=== PATIENT | female | born 1975 | race Caucasian/White ===

== ENCOUNTER 2023-07-15 09:38 | Outpatient (REF) | payer MEDICAID, SELFPAY ==
--- NOTE | ~2023-07-15 | XR_ITS ---
EXAMINATION: 1. RADIOGRAPHS LEFT HIP 2. RADIOGRAPHS LEFT KNEE CLINICAL INFORMATION: Pain COMPARISON: None available TECHNIQUE: 2 views of the left hip and 4 views of the left knee were obtained FINDINGS: Left hip: Visualized portion of proximal left femur demonstrate no fracture. Left femoral head is well-seated within the acetabulum. Left femoral acetabular joint space is well-maintained. Pelvic calcifications are likely vascular in nature. Left knee: There is mild narrowing of the medial and lateral joint space heights. No significant degenerative changes. No fracture. Tiny suprapatellar joint effusion. No localized soft tissue swelling of the anterior knee. XR/XR hip LT min 2V IMPRESSION: 1. Unremarkable radiographs of the left hip. 2. Mild degenerative changes of the left knee with a tiny suprapatellar joint effusion.
--- NOTE | ~2023-07-15 | XR_ITS ---
EXAMINATION: 1. RADIOGRAPHS LEFT HIP 2. RADIOGRAPHS LEFT KNEE CLINICAL INFORMATION: Pain COMPARISON: None available TECHNIQUE: 2 views of the left hip and 4 views of the left knee were obtained FINDINGS: Left hip: Visualized portion of proximal left femur demonstrate no fracture. Left femoral head is well-seated within the acetabulum. Left femoral acetabular joint space is well-maintained. Pelvic calcifications are likely vascular in nature. Left knee: There is mild narrowing of the medial and lateral joint space heights. No significant degenerative changes. No fracture. Tiny suprapatellar joint effusion. No localized soft tissue swelling of the anterior knee. XR/XR knee LT 4V IMPRESSION: 1. Unremarkable radiographs of the left hip. 2. Mild degenerative changes of the left knee with a tiny suprapatellar joint effusion.
== END 2023-07-15 09:39 | disposition home or self-care (01) ==
LOC: HO.XRAY 09:38
PROVIDERS: PCP Internal Medicine; Visit Provider Internal Medicine
DX: M25.562 Pain in left knee (principal); M25.552 Pain in left hip
CPT/HCPCS: 73502; 73564

== ENCOUNTER 2024-04-20 10:14 | Outpatient (REF) | payer MEDICAID, SELFPAY ==
[2024-04-20 11:53] LABS: Estimated Average Glucose 143 mg/dL; Hemoglobin A1C 177.3657 umol/L; Hemoglobin A1c % 6.6 % (<6.0); Total Hemoglobin (HGBA1C) 3678.2526 umol/L
[2024-04-20 12:12] LABS: Calcium 9.3 mg/dL (8.4-10.2)
[2024-04-20 12:28] LABS: TSH reflex Free T4 1.68 uIU/mL (0.32-4.0)
[2024-04-21 18:48] LABS: Transglutaminase IgA <1.0 U/mL
[2024-04-21 19:19] LABS: Immunoglobulin A 169 mg/dL (47-310)
== END 2024-04-20 10:15 | disposition home or self-care (01) ==
LOC: HO.LAB 10:14
PROVIDERS: PCP Internal Medicine; Visit Provider Internal Medicine
DX: K31.84 Gastroparesis (principal); K59.00 Constipation, unspecified
CPT/HCPCS: 36415; 82310; 82784; 83036; 83735; 84443; 86364; 99202

== ENCOUNTER 2024-04-20 10:14 | Outpatient (AMB) | payer MEDICAID, SELFPAY ==
--- NOTE | 2024-04-20 10:18 | MHC.OFFVIS ---
Vital Signs 04/20/24 10:21 Height 5 ft 2 in Weight 171 lb 15.369 oz BMI 31.4 BP 136/86 Blood Pressure Location Lt brachial Position Sitting Respiration 87 H Intake Visit Reasons: Epigastric pain Intake Note: Sylvia presents in the office as a new patient for epigastric pains CC: She states that she is having issues with her stomach. Constipation but denies diarrhea. No blood when she has a BM. Machine [employer] Required: Yes Machine Feathered[employer] Reducer Name: Cousin Allergies acetaminophen [From Percocet] Allergy (Mild, Verified 04/20/24 10:22) Unknown latex Allergy (Mild, Verified 04/20/24 10:22) Unknown oxycodone [From Percocet] Allergy (Mild, Verified 04/20/24 10:22) Unknown HPI Comments Details: 48 y.o F with PMH of GERD s/p LINX who is coming in for management of gastroparesis. Seen with [facility]. Pt seeking second opinion at [facility] [place] - prev seen by [facility]. Prev w/up [facility]: Barium swallow: no reflux despite provocation. linx position good. egd 12/2023: food in stomach GES 12/2023: 80% retention at 4h. Today: reports main concern is abd pain and bloating after meals. Has reflux sensation. Also reports constipation - goes every 3-4 days. Has DM for which she is on metformin. No recent travel or major illness in the past year. Clonidine noted on med list but has been taking this >1 year. PFSH Surgical History (Updated 04/20/24 @ 10:24 by CARL Morse) Hx of colonoscopy Family History (Updated 04/20/24 @ 10:22 by CARL Morse) Maternal Grandmother No problems noted. Family/Other Prostate cancer Review of Systems Const All systems reviewed & are unremarkable except as noted in HPI and below Physical Exam Vital Signs: Last Vital Signs Resp 87 H 04/20/24 10:21 BP 136/86 04/20/24 10:21 BMI result Body Mass Index 31.4 No apparent distress Nonicteric Abdomen soft, nondistended Alert and oriented x3, normal gait Assessment & Plan Assessment & Plan (1) Constipation: Code(s): K59.00 - Constipation, unspecified Category: Medical (2) Gastroparesis: Code(s): K31.84 - Gastroparesis Category: Medical Plan GI sx driven by hypomotilty - has delayed gastric emptying as well as severe constipation. Etiology of gastroparesis not determined yet. Ddx incudes vagal injury from linx vs diabetic vs idiopathic. Plan: - Start motegrity 1mg PO daily - Small particle diet - Avoid fatty food and fiber - Stay upright for 60 mins post meals - Check labs as below Follow up 2 months Orders: Orders Transglutaminase IgA Today K31.84 - Gastroparesis Immunoglobulin A Today K31.84 - Gastroparesis Magnesium Today K31.84 - Gastroparesis Hemoglobin A1c Today K31.84 - Gastroparesis Calcium Today K31.84 - Gastroparesis TSH reflex Free T4 Today K59.00 - Constipation, unspecified Medications: New prucalopride (Motegrity) 1 mg PO DAILY 90 days 90 tabs 1RF Coding Level of Care Code New Pt Level 4 (44351) Complex EM visit Add On G2211 Diagnoses Constipation K59.00 Gastroparesis K31.84
[2024-04-20 10:21] VITALS: BP 136/86; RESP 87; BMI 31.4
--- OUTSIDE RECORDS SUMMARY | 2024-04-20 10:30 | XMS_ITS | Data Portability ---
Author Organization [facility], [facility] Address [address] [place] [address] Care Team Providers Care Business Job Titles Name Role Phone SHANITA MCMANUSMA Primary Care Provider [phone] Assessment Encounter Date Assessment Date Assessment LastModified by Organization Details LastModified Time 03/29/2024 03/29/2024 Chief Complaint: Left knee bucket-handle lateral meniscus tear, knee chondromalacia HPI: Patient is a 48-year-old female presenting with left knee pain and mechanical symptoms. The condition started approximately 3 weeks ago when she experienced sudden pain while attempting to stand from a seated position. Due to swelling, she sought emergency room evaluation at that time. Since the initial incident, she reports continued symptoms including knee locking. Patient has a significant cardiac history with previous heart surgery. She denies any previous knee surgeries or major trauma. I independently reviewed the outside MRI of the left knee dated 03/20/2024 from [facility]. There is a complex bucket-handle tear of the lateral meniscus with displacement of the meniscus into the intracondylar notch. Moderate chondromalacia to the mid weightbearing portion of the lateral femoral condyle and lateral tibial plateau. ACL and PCL intact. Medial meniscus appears intact. Chondral thinning in the medial compartment also noted. Collateral ligaments intact. Mild patellar chondromalacia. She has a past medical history of hypertension, cardiac disease status post open heart surgery, history of stroke and diabetes. Medications are listed in the medical record. She has a sensitivity to narcotics. She denies tobacco use. No personal or family history of blood clots. Past medical, surgical, family and social history; Medications, Allergies and 12-point review of systems have been reviewed, updated and charted. Physical Examination: Height and weight as listed in chart. Constitutional: Patient pleasant, well appearing and in NAD. Mental status: Patient is alert and oriented to person, place and time. No short-term memory deficits. Psychiatric: Mood and affect are appropriate. Head: Normocephalic and atraumatic. Exterior inspection of the ears and nose was unremarkable. Hearing grossly intact. Eyes: Sclera are not blue. instructor decorating II-XII are grossly intact. Full extraocular motion. Neck: Supple with age-appropriate ROM. No tracheal deviation. No obvious JVD. Respiratory: Non-labored breathing. Symmetric excursion. No audible wheezing or crackles. Skin: No rashes, lesions, wounds to the lower extremities. Normal turgor and coloration. Musculoskeletal: On examination of the left knee, there is a mild to moderate effusion with no erythema or ecchymosis. Range of motion from +10-120??. She has a block to full extension. Her knee is stable to varus and valgus stress as well as Yung and posterior drawer. She exhibits tenderness to palpation along the lateral joint line, pain with deep knee flexion and pain with Parish's maneuver. Extensor mechanism intact. Procedure: Injection of Steroid and Anesthetic, Knee Joint All reasonable risks and benefits of injection were discussed. Risks include bleeding, infection, non-relief of symptoms, recurrence of symptoms, allergic reaction, scarring, fat atrophy, and hyperglycemia. After obtaining verbal consent, the Left lateral knee was prepped in sterile fashion using an alcohol swab. The skin was anesthetized with ethyl chloride spray, wiped again with alcohol, and an intraarticular injection of 1cc of Kenalog 40 and 4cc? s of Lidocaine 1% was performed using a 22-gauge needle into the superior lateral aspect of the suprapatellar pouch of the knee. The medication flowed freely into the joint and the patient tolerated this procedure well. The patient was instructed to avoid strenuous activity following the injection for approximately 24 to 48 hours, ice the area as needed and then a gradual return to normal activities is allowed. Impression and Plan: 48-year-old female with left knee pain, swelling, mechanical symptoms and block to full extension in the setting of a left knee bucket-handle lateral meniscus tear. I discussed etiology of the patient's symptoms with her at length today. At this point, she has failed conservative treatment including rest, activity modification, use of an assistive device and anti-inflammatorie s. Given her mechanical symptoms and block to full extension, I did recommend moving forward with left knee diagnostic and operative arthroscopy with partial lateral meniscectomy and chondroplasty/debr idement. She does have evidence of early arthritic change to her lateral compartment and unfortunately, her lateral meniscus tear represents a large component of her overall meniscal volume. She does stand the risk of developing progressive osteoarthritis because of her injury. Based on her relatively minimal mechanism of injury, there is likely been some degree of tearing for years and the meniscus finally bucketed. Although there is a possibility that the meniscus could be repairable, I discussed that this is unlikely based on her history alone. Moreover, we discussed that meniscus repair is a very different recovery requiring 6 weeks of nonweightbearing. She wishes to move forward with surgery. Anticipated recovery after knee arthroscopy with partial meniscectomy surgery is approximately 6 weeks. I will allow the patient to weight-bear as tolerated. I recommend the patient begin physical therapy within 2 days of surgery to prevent knee stiffness. The patient does wish to proceed. Preoperative history and physical to be completed by PCP/holter scanning technician. All questions and concerns addressed. 1. A detailed discussion regarding the patient? s pathoanatomy and treatment options, both operative and non-operative, was conducted today. 2. Given that conservative measures have failed, I recommended left knee diagnostic and operative arthroscopy with partial lateral meniscectomy and chondroplasty/debr idement. 2. The mechanics of the major surgery were reviewed with explanation, diagram, and review of imaging. 3. I told the patient that the goal of surgery was to improve their overall function and symptoms, but that surgery may not relieve all symptoms. I advised the patient that symptom resolution after this procedure may be protracted and incomplete.?? I explained that, as a result, permanent functional limitations may be recommended. 4. An appropriate timeline of recovery was outlined, and appropriate expectations were reviewed. 5. The risks and benefits of surgery, and the nonoperative alternatives, were discussed at length. Risks include, but are not limited to infection, bleeding, damage to nerves, blood vessels, muscle, tendon, bone; need for further surgery, wound healing problems, hardware related problems, non-relief of symptoms, recurrence of pathology, reinjury, chronic pain, chronic numbness, chronic weakness, loss of function, compartment syndrome, fracture, complex regional pain syndrome, joint stiffness, adhesions/scarring , arthritis or progression of arthritis, complications of anesthesia, and blood clots. 6. The patient has been educated in clear, simple language and on their own level of understanding the risks and benefits of all viable treatment options, including those of no treatment. All questions have been answered to their satisfaction. The patient has made an informed decision to proceed with surgery. 7. The patient was offered a second opinion regarding diagnosis and management of their condition and they respectfully declined. To alleviate symptoms and buy her time until surgery, I did not perform any cortisone injection today that she tolerated very well. The patient is deemed high risk for surgery perioperatively and postoperatively given the following factors: Cardiac disease status post open heart surgery Today's visit involved examining the patient, reviewing the history, reviewing the radiographic studies, counseling the patient regarding treatment options, and the administrative tasks including placing orders, preparing patient information and home handouts and preparing the visit note. This note was generated with [facility] ([place], [place])[employer] [facility] speech recognition network program manager dictation software. Please excuse any errors that may have been overlooked during review of this note. Sometimes, these errors may affect the content or meaning of a given sentence. Please call for corrections. [email or web address] Not available 03/29/2024 09:51:22 Plan of Treatment Reminders Order Date Submit Date Provider Last Modified By Organization Details Last Modified Time Details Appointments SURGERY @ [facility] 2024 07:30A M Bruce Morley MD Not available Not available Not available PT INITIAL EVAL 2024 09:30A M Alonso de la cruz, DPT Not available Not available Not available PT FOLLOW-U P 2024 01:00P Laly Henderson DIRECTOR ORGANIZATIONAL Not available Not available Not available PT FOLLOW-U P 2024 09:00A M Daisy Henderson DIRECTOR ORGANIZATIONAL Not available Not available Not available PT FOLLOW-U P 2024 07:30A Laly Henderson DIRECTOR ORGANIZATIONAL Not available Not available Not available PT FOLLOW-U P 2024 08:30A M Daisy Henderson DIRECTOR ORGANIZATIONAL Not available Not available Not available POST OP 15 2024 01:30P Laly Francis i, PA-C Not available Not available Not available PT FOLLOW-U P 2024 08:30A M Daisy Henderson, DIRECTOR ORGANIZATIONAL Not available Not available Not available PT FOLLOW-U P 2024 09:00A M Daisy Henderson, DIRECTOR ORGANIZATIONAL Not available Not available Not available PT FOLLOW-U P 2024 08:30A M Daisy Henderson, DIRECTOR ORGANIZATIONAL Not available Not available Not available PT FOLLOW-U P 2024 08:30A M Daisy Henderson, DIRECTOR ORGANIZATIONAL Not available Not available Not available PT FOLLOW-U P 2024 08:30A M Alonso Mendoza s, DPT Not available Not available Not available PT FOLLOW-U P 2024 08:30A M Daisy Henderson, DIRECTOR ORGANIZATIONAL Not available Not available Not available PT FOLLOW-U P 2024 08:30A M Daisy Henderson, DIRECTOR ORGANIZATIONAL Not available Not available Not available PT FOLLOW-U P 2024 08:30A M Alonso Linki s, DPT Not available Not available Not available PT FOLLOW-U P 2024 08:30A M Alonso Linki s, DPT Not available Not available Not available PT FOLLOW-U P 2024 08:30A M Alonso Alanisoraki s, DPT Not available Not available Not available PT FOLLOW-U P 2024 08:30A M Alonso Alanisoraki s, DPT Not available Not available Not available Lab None recorded . Referral None recorded . Procedures None recorded . Surgeries None recorded . Imaging MRI, knee, w/o contrast - left knee MRI ?LMT, lateral femoral condoyle fx / pain and weakness 2023 024 chandra [facility] ([facility]), [address] [place], [address], 03/24/2024 13:42:20 Medication Orders meloxica m 15 mg tablet 2023 024 sandra 1 [id number], [address] [place], [address], 03/08/2024 15:32:10 Patient TargetsNo targets recorded. Patient InstructionsNo instructions recorded. Reason for Referral None Reported. Results Created Date Observation Date Name Description Value Unit Range Abnormal Flag Note LastModifiedBy Organization Detail LastModifiedTime 12/11/19 24 10/27/2019 imagi ng/di agnos tic resul t No observ ation record ed. [email or web address] Not Available 11/13 06:52:02 12/11/19 24 10/27/2019 imagi ng/di agnos tic resul t No observ ation record ed. [email or web address] Not Available 11/13 06:52:03 03/21/20 24 03/20/2024 MRI, knee, w/o contr ast [facility] Access ion Number : [id number] Patien t Name: Toby Miller na Medica brandin Record Number : [id number] Date of : 1975 Date of Exam: 2023 Referr ing Physic flora: Daisy Cedeno [address] [facility], [place] [address] Exam: MR Knee (C-) CPT 70593 - Left Room Descri ption: Cook Siem Espr 1.5 MR Knee (C-) CPT 18977 CLINIC AL INDICA TION: Pain and decrea sed range of motion for the past 2 weeks. TECHNI QUE: MRI of the left knee was perfor med withou t intrav enous contra st. COMPAR RABIA: MRI 020 FINDIN GS: Joint effusi on: Modera te volume joint effusi on. Hoffa' s fat pad is unrema rkable . Diffus e edema of the subcut aneous fat. Menisc i: Bucket -handl e tear of the latera l menisc us with anteri or displa cement of the menisc al fragme nt lies adjace nt to the anteri or horn. Medial menisc us is intact . Tendon s and ligame nts: The ACL and PCL are intact . The collat eral ligame nts are unrema rkable . The ilioti bial band is unrema rkable . The extens or mechan ism is intact . Articu lar cartil age: Modera te medial and latera l tibiof emoral chondr al thinni ng. Patell ofemor al articu lar cartil age is well mainta ined. Bone: Alignm ent and bone marrow signal are within normal limits . No eviden ce of fractu re or bone marrow contus ion. IMPRES JUN: Bucket -handl e tear of the latera l menisc us with anteri or displa cement of the word processor technician ior horn. Modera te volume joint effusi on. I, Derik Saucedo rd, MD, have review ed the images and report and concur with the reside nt, Socrates Beards, teofilo gs. Electr onical ly Signed By: Derik Saucedo rd, MD [email or web address] [facility] ([facility]) [address], [place], [address], 03/22/2024 09:08:28 Result Notes None recorded. Problems Name Problem SNOMED Code Status Onset Date Resolution Date Notes Provider Name and Address Organization Details Recorded Time No complaint s 954444970 Active Status: 'I'; Not Available [facility] 4 09:23:50 Pain of right knee joint 204310355924 100 Active 2023 Daisy Coronado PA-C [address], [place], [address] , [facility] 4 12:50:19 Carpal tunnel syndrome of right wrist 677822487882 108 Active 2019 Problem Code: G56.01; Problem Code Type: ICD-10; Status: 'A'; Not Available [facility] 4 11:59:07 Lateral epicondyl itis of left humerus 741425866905 100 Active 2019 Problem Code: M77.12; Problem Code Type: ICD-10; Status: 'A'; Not Available [facility] 4 11:59:07 Bilateral osteoarth ritis of knees 192011550808 107 Active 2023 jasmina painting [place] - [facility] 4 15:13:33 Problem Notes None recorded. Procedures Surgical History Date Name Laterality Status Provider Name and Address Organization Details Recorded Time 4 Sports Knee 4&1 completed Bruce Morley MD [address], [place], [address], [facility] 03/29/2024 09:51:30 4 Euflexxa Knee Injection completed Andrey Guevara PA-C [address], [place], [address], [facility] 12/10/2023 12:39:22 4 Euflexxa Knee Injection completed Gita Valdez PA-C [address], [place], [address], [facility] 12/09/2023 12:49:38 4 Euflexxa Knee Injection completed Andrey Guevara PA-C [address] [facility] [place], [place], [address], [facility] 12/02/2023 11:00:45 4 Knee Kenalog 40 2cc Injection, Bilateral completed Andrey Guevara PA-C [address] [facility] [place], [place], [address], [facility] 07/09/2023 09:11:20 Imaging Results Imaging Date Name Status LastModified by Organiz ation Details LastModified Time 10/27/2019 imaging/diagn ostic result completed Information not available 12/11/2023 06:52:02 10/27/2019 imaging/diagn ostic result completed Information not available 12/11/2023 06:52:03 03/20/2024 MRI, knee, w/o contrast completed [facility] ([facility]) [address], [place], [address], 03/22/2024 09:08:28 Procedure Notes None recorded. Medical Equipment None Reported. Allergies Allergen ID Allergen Name Allergen Category Reaction Reaction Severity Criticality Documentation Date Start Date Code Code System Note Provider Name and Address Organization Details Recorded Time 296956 acetamino phen / oxycodone medicatio n hallucina tions Not available Not available 06/15/20232017 96746 3 RxNorm Not Available [facility] 4 16:24:31 054846 latex environme nt,medica tion Not available Not available Not available 06/15/20232018 02286 91 RxNorm Not Available [facility] 16:24:31 Medications Name Sig Start Date Stop Date Status Note LastModified by Organization Details LastModified Time atorvastati n 40 mg tablet TOME 1 TABLETA POR V A ORAL TODOS LOS D active Not Available Not Available No t Available terconazole 0.4 % vaginal cream 1 APPLICATO R VAGINALLY AT BEDTIME FOR 7DAYS active Not Available Not Available No t Available atorvastati n 80 mg tablet TOME 1 TABLETA POR V A ORAL TODOS LOS D active Not Available Not Available No t Available clonidine HCl 0.1 mg tablet TOME DILCIA TABLETA TODOS LOS D EN LA NOCHE active Not Available Not Available No t Available doxycycline hyclate 100 mg capsule TOME DILCIA C PSULA DOS VECES AL D A 12/08 completed Not Available Not Available Not Available atorvastati n 20 mg tablet TOME DILCIA TABLETA TODOS LOS D 12/08 completed Not Available Not Available Not Available trazodone 50 mg tablet TOME DILCIA O DOS TABLETAS POR V A ORAL AL ACOSTARSE CUANDO SEA NECESARIO active Not Available Not Available No t Available prazosin 1 mg capsule TOME SARAY C PSULAS POR V A ORAL TODOS LOS D AL ACOSTARSE active Not Available Not Available No t Available meloxicam 15 mg tablet Take 1 tablet every day by oral route after meal(s). 2023 active Not Available Not Available Not Adelaide Esparza Lancidalmis 28 gauge CHECK SUGARS DOS VECES AL D A active Not Available Not Available No t Available metoprolol succinate ER 100 mg tablet,exte nded release 24 hr TAKE 1 AND 1/2 TABLETS POR V A ORAL A DIARIO active Not Available Not Available No t Available sertraline 100 mg tablet TOME 1 TABLETA POR V A ORAL TODOS LOS D active Not Available Not Available No t Available metronidazo le 500 mg tablet TAKE ONE TABLET BY MOUTH TWICE A DAY FOR SEVEN DAYS. DO NOT DRINK ALCOHOL WHILE TAKING THIS MED active Not Available Not Available No t Available famotidine 20 mg tablet TAKE 1 TABLET BY MOUTH 2 TIMES DAILY NEEDED FOR HEARTBURN . active Not Available Not Available No t Available metoclopram viky 5 mg tablet TAKE 1 TABLET BY MOUTH 3 TIMES A DAY, 30 MINUTES BEFORE FOOD active Not Available Not Available No t Available estradiol 1 mg tablet TOME 1 TABLETA POR V A ORAL TODOS LOS D EN LA MA CATRINA active Not Available Not Available No t Available cephalexin 500 mg capsule TOME DILCIA C PSULA SARAY VECES AL D A 12/08 completed Not Available Not Available Not Available sertraline 25 mg tablet TOME DILCIA TABLETA POR V A ORAL TODOS LOS D (WITH 150MG) active Not Available Not Available No t Available omeprazole 20 mg capsule,del ayed release TOME 1 C PSULA POR V A ORAL TODOS LOS D 12/08 completed Not Available Not Available Not Available estradiol 0.01% (0.1 mg/gram) vaginal cream INSERT 1 GM VAGINALLY DAILY AT BEDTIME FOR 14 DAYS active Not Available Not Available No t Available losartan 100 mg tablet TOME 1 TABLETA POR V A ORAL TODOS LOS D active Not Available Not Available No t Available metformin ER 500 mg tablet,exte nded release 24 hr TOME DILCIA TABLETA POR V A ORAL DOS VECES AL D A active Not Available Not Available No t Available sertraline 50 mg tablet TOME SARAY TABLETAS POR V A ORAL TODOS LOS D WITH 25 MG active Not Available Not Available No t Available dicyclomine 10 mg capsule TAKE 1 CAPSULE BY MOUTH 3 TIMES DAILY NEEDED (DIARRHEA ) FOR UP TO 90 DAYS. 12/08 completed Not Available Not Available Not Available loratadine 10 mg tablet TOME 1 TABLETA POR V A ORAL TODOS LOS D active Not Available Not Available No t Available prazosin 2 mg capsule TOME DILCIA C PSULA TODOS LOS D AL ACOSTARSE active Not Available Not Available No t Available naproxen 500 mg tablet TOME 1 TABLETA POR V A ORAL DOS VECES AL D A active Not Available Not Available No t Available Ventolin HFA 90 mcg/actuati on aerosol inhaler INHALE DANDO DOS SOPLIDOS CUATRO VECES AL D A active Not Available Not Available No t Available hydrocortis one 1 % topical cream with perineal applicator APLIQUE AL GERTRUDE AFECTADA DOS VECES AL D A. FOR INTERNAL RECTAL USE 12/08 completed Not Available Not Available Not Available Flovent HFA 110 mcg/actuati on aerosol inhaler INHALE DANDO DOS SOPLIDOS DOS HARLEY AL D A active Not Available Not Available No t Available FreeStyle Lite Strips USE SEG N LO INDICADO DOS HARLEY AL D A active Not Available Not Available No t Available Gavilax 17 gram/dose oral powder TAKE 17 GRAMS POR V A ORAL ONCE DAILY 12/08 completed Not Available Not Available Not Available Vitals Date Recorded Body height Body mass index (BMI) Body weight Provider Name and Address Organization Details Last Updated DateTime 12/03/2023 157.48 cm 31.1 kg/m2 08619.7 g Nitish Hollingsworth [facility] 12/03/2023 13:09:10 Date Recorded Body height Body mass index (BMI) Body weight Provider Name and Address Organization Details Last Updated DateTime 12/09/2023 157.48 cm 31.1 kg/m2 19473.7 g jasmina talamantes [facility] 12/09/2023 12:10:54 Date Recorded Body height Body mass index (BMI) Body weight Provider Name and Address Organization Details Last Updated DateTime 12/16/2023 157.48 cm 31.1 kg/m2 98664.7 g Nitish Hollingsworth [facility] 12/16/2023 12:57:41 Date Recorded Body height Body mass index (BMI) Body weight Provider Name and Address Organization Details Last Updated DateTime 03/08/2024 157.48 cm 31.1 kg/m2 69026.7 g Maura Mcallister [facility] 03/08/2024 14:44:31 Date Recorded Body height Body mass index (BMI) Body weight Provider Name and Address Organization Details Last Updated DateTime 03/29/2024 157.48 cm 31.1 kg/m2 74852.7 g NITIN NEVES [facility] 03/29/2024 08:59:11 Social History None recorded. Functional Status None recorded. Mental Status None recorded. Family History Nothing Reported. Medical History Condition Response Diabetes Y Anxiety/Depression Y Arthritis Y Acid Reflux (GERD) Y Stroke Y Heart Trouble Y Headaches Y Hypertension Y Cholesterol Y Gynecological HistoryNo gynecological history recorded. Obstetrics History GPAL:G 0 P 0 0 0 0 Past Encounters Encounter ID Performer Location Encounter Start Date Encounter Closed Date Diagnosis/Indication Diagnosis SNOMED-CT Code Diagnosis ICD10 Code Diagnosis Note [id number] Andrey Guevara PA-C [facility] [address] [place] [address] 07/09/2023 08:48:11 07/09/2023 10:57:11 Bilateral osteoarthritis of knees 4799681268 89858 M17.0 [id number] [facility] [address] [place] [address] 08/14/2023 15:29:40 08/14/2023 16:21:32 Bilateral osteoarthritis of knees 3044821819 10876 M17.0 [id number] [facility] [address] [place] [address] 12/03/2023 13:02:15 12/03/2023 13:18:26 Osteoarthritis of left knee joint 3047279742 25617 M17.12 [id number] ECTOR [facility] [address] [place] [address] 12/09/2023 12:00:30 01/01/2024 08:52:35 Osteoarthritis of left knee joint 9950550905 02135 M17.12 [id number] Andrey Guevara PA-C [facility] [address] [place] [address] 12/16/2023 12:32:43 12/16/2023 15:14:48 Osteoarthritis of left knee joint 3056107741 30762 M17.12 [id number] Daisy Coronado PA-C [place] [address] [place] [address] 03/08/2024 13:46:19 03/24/2024 13:42:20 Pain of right knee joint 1580103560 57281 M25.561 Tear of la teral meniscus of knee 447602141 S83.282A [id number] Bruce Morley MD [facility] [address] [place] [address] 03/29/2024 08:41:59 04/19/2024 14:57:06 Tear of lateral meniscus of knee 771182647 S83.272A Health Concerns Section Related Observation LastModified by Organization Detai ls LastModified Time None Recorded Concern Status LastModified by Organization Details LastModified Time None Recorded Advance Directives Directive None Recorded Payers Encounter Date Sequence Insurance Name Policy Number Policy Carr Covered Member ID Carr Member ID Guarantor Name 12/03/2023 1 [place] [facility]via Paul [id number] Sylvia Paul 12/09/2023 1 [place] Sylvia Paul [id number] Sylvia Paul 12/16/2023 1 [place] [facility] Syl[facility] Paul [id number] Sylvia Paul 03/08/2024 1 [place] [facility] Syl[facility] Paul [id number] Sylvia Paul 03/29/2024 1 [place] [facility] Sylvia Paul [id number] Sylvia Paul Notes Date Note Type Note Provider Name and Address Organization Details Recorded Time text/html I am seeing the patient today under the supervision of Dr. Whittaker who was available but who did not see the patient. HPI: Patient presenting today with known osteoarthritis of the left knee. Not happy with pain level and function of the knees. Is authorized for Euflexxa injection {{#1 #2* #3}} today. No new injury. Past family, medical, social history and review of systems has been reviewed, updated, and is located in the patient? s chart. Examination: Examination of the left knee reveals no effusion, erythema, or warmth. Injection site benign. Decreased range of motion. Point tender {{medial* lateral}} joint line. Calf is soft and nontender. 5/5 strength knee flexion and extension. Impression: Left knee osteoarthritis Plan: Nature of the diagnosis discussed with the patient today. Patient agreed to proceed with an injection. Utilizing sterile technique, the left knee was injected with Euflexxa 1 unit. Patient tolerated the procedure well. Postinjection precautions reviewed. Recommended ice and rest for the next 24-48 hours. Follow-up as scheduled. [employer] speech recognition network program manager software was used to create portions of this document. An attempt at proofreading has been made to minimize errors. Please call for corrections. Gita Valdez PA-C [address], [place], [address], [facility] 12/09/2023 12:49:55 4 text/html I am seeing the patient today under the supervision of {{Peyman Borjas palak Lopez* Brothers}} who was available but who did not see the patient. CLINICAL UPDATE: 48-year-old Libyan-speaking only female patient presents today for right knee pain. She reports 03-04-2024 she got up from a seated position and felt a crack at the lateral aspect of her knee. Since then, she has had pain with weightbearing. She is using a walker. She has tried naproxen, Tylenol, ice. Localizes pain to the lateral aspect of the knee. She was evaluated at the [facility] emergency department where a CT scan 03/06/24 demonstrated possible impaction fracture at the lateral femoral condyle, moderate joint effusion. HPI: Patient previously seen by one of my colleagues for bilateral knee pain. Completed left knee Euflexxa series 12/16/23. Last bilateral knee cortisone injections 07/09/23. Past family, social history and review of systems has been reviewed, updated and is located in the patient? s chart. X-RAYS: Previous 4v X-rays of the {{Right Left Bilateral*}} knees from June 2022 reviewed today at [facility] demonstrates mild lateral compartment osteoarthritis, left greater than right knee IMPRESSION: {{Right* Left Bilateral}} knee lateral femoral condyle impaction fracture, effusion PLAN: Findings reviewed. She has tried viscosupplementation and cortisone injection with mild relief previously. Given her recent injury, relatively mild arthritis in the knee, recommended MRI to further guide treatment options. Recommended protected weightbearing for the next 6-8 weeks, continuing to use her walker. Demonstrated gentle range of motion exercises to prevent stiffness. Meloxicam 15 mg to be taken daily with food was sent to her pharmacy. Instructed to avoid other NSAIDs while taking this medication. Follow-up for MRI review and ongoing treatment discussion. All of her concerns are addressed and she understands and agrees with the plan. Speech recognition network program manager software was used to create portions of this document. An attempt at proofreading has been made to minimize errors. Please call for corrections. Daisy Coronado PA-C [address], [place], [address], [facility] 03/09/2024 17:00:04 OBGyn Episode No OBEpisode recorded.
--- OUTSIDE RECORDS SUMMARY | 2024-04-20 10:30 | XMS_ITS | Continuity of Care Document ---
Author Organization On license of [facility], [address] Address [address] [place] [address] Care Team Providers Care Convict Guard Name Role Phone UMBERTO MCMANUS Primary Care Provider Assessment Encounter Date Assessment Date Assessment LastModified [...] of the left knee dated 03/20/2024 from [facility]. There is a complex bucket-handle tear [...] grossly intact. Eyes: Sclera are not blue. radiotelephone operator II-XII are grossly intact. Full extraocular motion. [...] history and physical to be completed by PCP/associate director. All questions and concerns addressed. 1. A [...] visit note. This note was generated with [facility] speech recognition radiological health specialist dictation software. Please excuse any errors that may have been overlooked during review of this note. Sometimes, these errors may affect the content or meaning of a given sentence. Please call for corrections. [email or web address] Not available 03/29/2024 09:51:22 Plan of Treatment Reminders Order Date Submit Date Provider Last Modified By Organization Details Last Modified Time Details Appointments SURGERY @ [facility] 2024 07:30A M Bruce Morley MD Not available Not available Not available PT INITIAL EVAL 2024 09:30A M Alonso de la cruz, DPT Not available Not available Not available PT FOLLOW-U P 2024 01:00P Laly Henderson COURT REGISTRY OFFICER Not available Not available Not available PT FOLLOW-U P 2024 09:00A M Daisy Henderson COURT REGISTRY OFFICER Not available Not available Not available PT FOLLOW-U P 2024 07:30A Laly Henderson COURT REGISTRY OFFICER Not available Not available Not available PT FOLLOW-U P 2024 08:30A M Daisy Henderson COURT REGISTRY OFFICER Not available Not available Not available POST OP 15 2024 01:30P Laly Francis i, PA-C Not available Not available Not available PT FOLLOW-U P 2024 08:30A M Daisy Henderson, COURT REGISTRY OFFICER Not available Not available Not available PT FOLLOW-U P 2024 09:00A M Daisy Henderson, COURT REGISTRY OFFICER Not available Not available Not available PT FOLLOW-U P 2024 08:30A M Daisy Henderson, COURT REGISTRY OFFICER Not available Not available Not available PT FOLLOW-U P 2024 08:30A M Daisy Henderson, COURT REGISTRY OFFICER Not available Not available Not available PT FOLLOW-U P 2024 08:30A M Alonso Mendoza s, DPT Not available Not available Not available PT FOLLOW-U P 2024 08:30A M Daisy Henderson, COURT REGISTRY OFFICER Not available Not available Not available PT FOLLOW-U P 2024 08:30A M Daisy Henderson, COURT REGISTRY OFFICER Not available Not available Not available PT FOLLOW-U P 2024 08:30A M Alonso Linki s, DPT Not available Not available Not available PT FOLLOW-U P 2024 08:30A M Alonso Mendoza s, DPT Not available Not available Not available PT FOLLOW-U P 2024 08:30A M Alonso Menodza s, DPT Not available Not available Not available PT FOLLOW-U P 2024 08:30A M Alonso Mendoza s, DPT Not available Not available Not available Lab None recorded . Referral None recorded . Procedures None recorded . Surgeries None recorded . Imaging None recorded . Medication Orders None recorded . Patient TargetsNo targets recorded. Patient InstructionsNo instructions recorded. Reason for Referral None Reported. Results Created Date Observation Date Name Description Value Unit Range Abnormal Flag Note LastModifiedBy Organization Detail LastModifiedTime 03/21/20 24 03/20/2024 MRI, knee, w/o contr ast [facility] Access ion Number : [id number] Katrinjoe siena Name: Toby Millera brandin Record Number : [id number] Date of : 1975 Date of Exam: 2023 Referr ing Physic flora: Kendy colbert Daisy ROSETTA [address] [facility] [address] Exam: MR Knee (C-) CPT 65206 - Left Room Descri ption: [facility] Espr 1.5 MR Knee (C-) CPT 34308 CLINIC AL INDICA TION: Pain and decrea sed range of motion for the past 2 weeks. TECHNI QUE: MRI of the left knee was perfor med withou t intrav enous contra st. COMPAR RABIA: MRI 020 HARRISONIN GS: Joint effusi on: Modera te volume [...] with anteri or displa cement of the environmental test technician ior horn. Modera te volume joint effusi on. I, Derik Saucedo rd, MD, have review ed the images and report and concur with the Socrates castro findin gs. Electr onical ly Signed By: Derik Saucedo rd, MD [email or web address] [facility] [address], [place], [address], 03/22/2024 09:08:28 Result Notes None recorded. Problems Name Problem SNOMED Code Status Onset Date Resolution Date Notes Provider Name and Address Organization Details Recorded Time No complaint s 746176122 Active Status: 'I'; Not Available [employer] 09:23:50 Pain of right knee joint 890753462830 100 Active 2023 Daisy Coronado PA-C [address], [place], [address] , [facility] 4 12:50:19 Carpal tunnel syndrome of right wrist 301345635587 108 Active 2019 Problem Code: G56.01; Problem Code Type: ICD-10; Status: 'A'; Not Available [facility] 4 11:59:07 Lateral epicondyl itis of left humerus 833051748270 100 Active 2019 Problem Code: M77.12; Problem Code Type: ICD-10; Status: 'A'; Not Available [facility] 4 11:59:07 Bilateral osteoarth ritis of knees 053666271633 107 Active 2023 jasmina painting [facility] 4 15:13:33 Problem Notes None recorded. Procedures Surgical History Date Name Laterality Status Provider Name and Address Organization Details Recorded Time 4 Sports Knee 4&1 completed Bruce Morley MD [address], [place], [address], [facility] 03/29/2024 09:51:30 4 Euflexxa Knee Injection completed Andrey Guevraa PA-C [address], [place], [address], [facility] 12/10/2023 12:39:22 4 Euflexxa Knee Injection completed Gita Valdez PA-C [address], [place], [address], [facility] 12/09/2023 12:49:38 4 Euflexxa Knee Injection completed Andrey Guevara PA-C [address], [place], [address], [facility] 12/02/2023 11:00:45 4 Knee Kenalog 40 2cc Injection, Bilateral completed Andrey Guevara PA-C [address], [place], [address], [facility] 07/09/2023 09:11:20 Imaging Results None recorded. Procedure Notes None recorded. Medical Equipment None Reported. Allergies Allergen ID Allergen Name Allergen Category Reaction Reaction Severity Criticality Documentation Date Start Date Code Code System Note Provider Name and Address Organization Details Recorded Time 874750 acetamino phen / oxycodone medicatio n hallucina tions Not available Not available 06/15/20232017 78901 3 RxNorm Not Available [facility] 16:24:31 401942 latex environme nt,medica tion Not available Not available Not available 06/15/20232018 86076 91 RxNorm Not Available [facility] 16:24:31 Medications Name Sig Start Date Stop [...] 2023 active Not Available Not Available Not Avai lable FreeStyle Lancets 28 gauge CHECK SUGARS DOS VECES AL [...] aerosol inhaler INHALE DANDO DOS SOPLIDOS DOS VECES AL D A active Not Available Not Available No t Available FreeStyle Lite Strips USE SEG N LO INDICADO DOS VECES AL D A active Not Available Not Available No t Available Gavilax 17 gram/dose oral powder TAKE 17 GRAMS POR V A ORAL ONCE DAILY 12/08 completed Not Available Not Available Not Available Vitals Date Recorded Body height Body mass index (BMI) Body weight Provider Name and Address Organization Details Last Updated DateTime 03/29/2024 157.48 cm 31.1 kg/m2 30461.7 g NITIN NEVES [place] [facility] [place] 03/29/2024 08:59:11 Social History None recorded. Functional Status None recorded. Mental Status None recorded. Family History Nothing Reported. Medical History Condition Response Diabetes Y Anxiety/Depression Y Arthritis Y Heart Trouble Y Acid Reflux (GERD) Y Headaches Y Stroke Y Hypertension Y Cholesterol Y Gynecological HistoryNo gynecological history recorded. Obstetrics History GPAL:G 0 P 0 0 0 0 Past Encounters Encounter ID Performer Location Encounter Start Date Encounter Closed Date Diagnosis/Indication Diagnosis SNOMED-CT Code Diagnosis ICD10 Code Diagnosis Note [id number] Daisy Coronado PA-C [place] [address] [place] [address] 03/08/2024 13:46:19 03/24/2024 13:42:20 Pain of right knee joint 3749071275 44344 M25.561 Tear of la teral meniscus of knee 963490746 S83.282A [id number] MD [facility] 2[address] [place] , [place] [address] 03/29/2024 08:41:59 04/19/2024 14:57:06 Tear of lateral meniscus of knee 054572528 S83.272A Health Concerns Section Related Observation LastModified by Organization Detai ls LastModified Time None Recorded Concern Status LastModified by Organization Details LastModified Time None Recorded Payers Encounter Date Sequence Insurance Name Policy Number Policy Carr Covered Member ID Carr Member ID Guarantor Name 03/29/2024 1 [place] [facility] Sylvia Miller [id number] Sylvia Miller OBGyn Episode No OBEpisode recorded.
--- OUTSIDE RECORDS SUMMARY | 2024-04-20 10:31 | XMS_ITS | Continuity of Care Document ---
Author Organization [facility] [place] Address [address] [place] [address] Care Team Providers Care Warranty Administrator Name Role Phone UMBERTO MCMANUS Primary Care Provider [phone] Assessment No assessment recorded. Plan of Treatment Reminders Order Date Submit Date Provider Last Modified By Organization Details Last Modified Time Details Appointments SURGERY @ [facility] 2024 07:30A M Bruce Morley MD Not available Not available Not available PT INITIAL EVAL 2024 09:30A M Alonso de la cruz, DPT Not available Not available Not available PT FOLLOW-U P 2024 01:00P M Daisy Henderson, SEASONAL DELIVERY DRIVER Not available Not available Not available PT FOLLOW-U P 2024 09:00A M Daisy Henderson, SEASONAL DELIVERY DRIVER Not available Not available Not available PT FOLLOW-U P 2024 07:30A M Daisy Henderson, SEASONAL DELIVERY DRIVER Not available Not available Not available PT FOLLOW-U P 2024 08:30A M Daisy Henderson, SEASONAL DELIVERY DRIVER Not available Not available Not available POST OP 15 2024 01:30P M Daisy Francis i, PA-C Not available Not available Not available PT FOLLOW-U P 2024 08:30A Laly Henderson, SEASONAL DELIVERY DRIVER Not available Not available Not available PT FOLLOW-U P 2024 09:00A M Daisy Henderson, SEASONAL DELIVERY DRIVER Not available Not available Not available PT FOLLOW-U P 2024 08:30A Laly Henderson, SEASONAL DELIVERY DRIVER Not available Not available Not available PT FOLLOW-U P 2024 08:30A Laly Henderson, SEASONAL DELIVERY DRIVER Not available Not available Not available PT FOLLOW-U P 2024 08:30A M Alonso de la cruz, DPT Not available Not available Not available PT FOLLOW-U P 2024 08:30A M Daisy Henderson, SEASONAL DELIVERY DRIVER Not available Not available Not available PT FOLLOW-U P 2024 08:30A M Daisy Henderson, SEASONAL DELIVERY DRIVER Not available Not available Not available PT FOLLOW-U P 2024 08:30A M Alonso de la cruz, DPT Not available Not available Not available PT FOLLOW-U P 2024 08:30A M Alonso de la cruz, DPT Not available Not available Not available PT FOLLOW-U P 2024 08:30A M Alonso de la cruz, DPT Not available Not available Not available PT FOLLOW-U P 2024 08:30A M Alonso de la cruz, DPT Not available Not available Not available Lab None recorded . Referral None recorded . Procedures None recorded . Surgeries None recorded . Imaging MRI, knee, w/o contrast - left knee MRI ?LMT, lateral femoral condoyle fx / pain and weakness 2023 024 [facility] ([facility]), [address] [place] [address], [address], 03/24/2024 13:42:20 Medication Orders meloxica m 15 mg tablet 2023 024 [email or web address] [id number], [address] [place], [address], 03/08/2024 15:32:10 Patient TargetsNo targets recorded. Patient InstructionsNo instructions recorded. Reason for Referral None Reported. Results Created Date Observation Date Name Description Value Unit Range Abnormal Flag Note LastModifiedBy Organization Detail LastModifiedTime 03/21/20 24 03/20/2024 MRI, knee, w/o contr ast [facility] Access ion Number : [id number] Anamaria wren Name: Toby Miller Medica l Record Number : [id number] Date of : 1975 Date of Exam: 2023 Referr ing Physic flora: Kendy colbert, Daisy SARGENT [address] [facility] [id number] Exam: MR Knee (C-) CPT 49069 - Left Room Descri ption: [facility] Espr 1.5 MR Knee (C-) CPT 29516 CLINIC AL INDICA TION: Pain and decrea [...] with anteri or displa cement of the microbiology lab manager ior horn. Modera te volume joint effusi on. I, Derik Saucedo rd, MD, have review ed the images and report and concur with the reside Socrates gunn, teofilo gs. Electr onical ly Signed By: Derik Saucedo rd, MD [email or web address] [facility] ([place] [facility]) [address], [place], [address], 03/22/2024 09:08:28 Result Notes None recorded. Problems Name Problem SNOMED Code Status Onset Date Resolution Date Notes Provider Name and Address Organization Details Recorded Time No complaint s 984860347 Active Status: 'I'; Not Available [facility] 4 09:23:50 Pain of right knee joint 928400797410 100 Active 2023 Daisy Coronado PA-C [address], [place], [address] , [facility] 4 12:50:19 Carpal tunnel syndrome of right wrist 409550859279 108 Active 2019 Problem Code: G56.01; Problem Code Type: ICD-10; Status: 'A'; Not Available [facility] 4 11:59:07 Lateral epicondyl itis of left humerus 786978826867 100 Active 2019 Problem Code: M77.12; Problem Code Type: ICD-10; Status: 'A'; Not Available [facility] 4 11:59:07 Bilateral osteoarth ritis of knees 668339566708 107 Active 2023 jasmina talamantes [facility] 4 15:13:33 Problem Notes None recorded. Procedures Surgical History Date Name Laterality Status Provider Name and Address Organization Details Recorded Time 4 Sports Knee 4&1 completed Bruce Morley MD [address] [facility], [place], [address], [facility] 03/29/2024 09:51:30 4 Euflexxa Knee Injection completed Andrey Guevara PA-C [address], [place], [address], [facility] 12/10/2023 12:39:22 4 Euflexxa Knee Injection completed Gita Valdez PA-C [address], [place], [address], [facility] 12/09/2023 12:49:38 4 Euflexxa Knee Injection completed Andrey Guevara PA-C [address], [place], [address], [facility] 12/02/2023 11:00:45 4 Knee Kenalog 40 2cc Injection, Bilateral completed Andrey Guevara PA-C [address], [place], [address], [facility] [place] [facility] 07/09/2023 09:11:20 Imaging Results None recorded. Procedure Notes None recorded. Medical Equipment None Reported. Allergies Allergen ID Allergen Name Allergen Category Reaction Reaction Severity Criticality Documentation Date Start Date Code Code System Note Provider Name and Address Organization Details Recorded Time 151063 acetamino phen / oxycodone medicatio n hallucina tions Not available Not available 06/15/20232017 87756 3 RxNorm Not Available [facility] 4 16:24:31 567701 latex environme nt,medica tion Not available Not available Not available 06/15/20232018 65132 91 RxNorm Not Available [facility] [...] active Not Available Not Available Not Adelaide hirsch FreeStyle Lancets 28 gauge CHECK SUGARS DOS [...] Updated DateTime 03/08/2024 157.48 cm 31.1 kg/m2 21449.7 g Maura Mcallister [place] - [place] [facility] 03/08/2024 14:44:31 Social History None recorded. Functional Status None [...] SNOMED-CT Code Diagnosis ICD10 Code Diagnosis Note [id number] Daisy Coronado PA-C [place] [address] [place] [address] 03/08/2024 13:46:19 03/24/2024 13:42:20 Pain of right knee joint 4874906020 44695 M25.561 Tear of la teral meniscus of knee 978646727 S83.282A Health Concerns Section Related Observation LastModified by Organization Detai ls LastModified Time None Recorded Concern Status LastModified by Organization Details LastModified Time None Recorded Payers Encounter Date Sequence Insurance Name Policy Number Policy Carr Covered Member ID Carr Member ID Guarantor Name 03/08/2024 1 [place] [facility] Sylvia Miller [id number] Sylvia Miller Notes Date Note Type Note Provider Name and Address Organization Details Recorded Time 4 text/html I am seeing the patient today under the supervision of {{Peyman Lopez* Brothers}} who was available but who did not see the patient. CLINICAL UPDATE: 48-year-old Romanian-speaking only female patient presents today for right knee pain. She reports 03-04-2024 she got up from a seated position and felt a crack at the lateral aspect of her knee. Since then, she has had pain with weightbearing. She is using a walker. She has tried naproxen, Tylenol, ice. Localizes pain to the lateral aspect of the knee. She was evaluated at the [facility] emergency department where a CT scan [...] knees from June 2022 reviewed today at [facility] demonstrates mild lateral compartment osteoarthritis, left greater [...] and agrees with the plan. Speech recognition delta system freight car cleaner software was used to create portions of this document. An attempt at proofreading has been made to minimize errors. Please call for corrections. Daisy Coronado PA-C [address] [facility] [address], [place], [address], [facility] [place] [facility] 03/09/2024 17:00:04 OBGyn Episode No OBEpisode recorded.
== END 2024-04-20 10:59 | disposition home or self-care (01) ==
PROVIDERS: PCP Internal Medicine; Visit Provider Internal Medicine
DX: K59.00 Constipation, unspecified (principal); K31.84 Gastroparesis
CPT/HCPCS: 99204

== ENCOUNTER 2024-06-24 12:07 | Outpatient (AMB) | payer MEDICAID, SELFPAY ==
--- NOTE | 2024-06-24 12:14 | MHC.OFFVIS ---
Vital Signs 06/24/24 12:15 Height 5 ft 2 in Weight 176 lb 5.917 oz BMI 32.3 BP 128/72 Blood Pressure Location Lt brachial Position Sitting Pulse 94 Intake Visit Reasons: Gastroparesis Intake Note: Sylvia presents in the office as a follow up for Gastroparesis. CC: states that she had surgery on her knee 3 weeks ago. She is having pains in the stomach, she cannot digest her food, stomach is getting big and she is having lots of burping. General Farmworker Required: Yes General Farmworker Name: [id number] Ismael Allergies acetaminophen [From Percocet] Allergy (Mild, Verified 06/24/24 12:20) Unknown latex Allergy (Mild, Verified 06/24/24 12:20) Unknown oxycodone [From Percocet] Allergy (Mild, Verified 06/24/24 12:20) Unknown HPI Comments Details: 48 y.o F with PMH of GERD s/p LINX who is coming in for management of gastroparesis. Seen with device engineer. Pt seeking second opinion at [facility] - prev seen by [facility]. Prev w/up [facility]: Barium swallow: no reflux despite provocation. linx position good. egd 12/2023: food in stomach GES 12/2023: 80% retention at 4h. Today: reports main concern is abd pain and bloating after meals. Has reflux sensation. Also reports constipation - goes every 3-4 days. Has DM for which she is on metformin. No recent travel or major illness in the past year. Clonidine noted on med list but has been taking this >1 year. 06/24/24: Here for follow up. Reports limited effect with prucalopride so far. Up to 2 mg once daily dose. Pt also worried about her weight gain as she is sticking to gastroparesis small particle diet with limited fiber and fat and not able to adhere to a diet plan. Looking to discuss GLP 1 with her PCP but also requests a referral. PFSH Surgical History (Updated 06/24/24 @ 12:21 by CARL Morse) Hx of knee surgery Hx of colonoscopy Family History Maternal Grandmother No problems noted. Family/Other Prostate cancer Review of Systems Const All systems reviewed & are unremarkable except as noted in HPI and below Physical Exam Vital Signs: Last Vital Signs Pulse 94 06/24/24 12:15 BP 128/72 06/24/24 12:15 BMI result Body Mass Index 32.3 No apparent distress Nonicteric Abdomen soft, nondistended Alert and oriented x3, uses cane to ambulate Assessment & Plan Assessment & Plan (1) Constipation: Code(s): K59.00 - Constipation, unspecified Category: Medical (2) Gastroparesis: Code(s): K31.84 - Gastroparesis Category: Medical (3) Obesity: Code(s): E66.9 - Obesity, unspecified Category: Medical Plan 1. GI sx driven by hypomotilty - has delayed gastric emptying as well as severe constipation. Etiology of gastroparesis not determined yet. Ddx incudes vagal injury from linx vs diabetic vs idiopathic. Will trial 4 mg prucalopride. Pt requests BID dosing. Plan: - Increase motegrity 4 mg/day - Small particle diet - Avoid fatty food and fiber - Stay upright for 60 mins post meals 2. Obesity/DM: Pt not able to try weight loss diets such as paleo keto etc due to underlying gastroparesis. Plan: - Metabolic clinic referral placed Follow up 4-6 weeks Orders: Referrals Metabolic Clinic Referral E11.9 - Type 2 diabetes mellitus without complications, E66.9 - Obesity, unspecified Medications: New prucalopride 2 mg PO BID 90 days 180 tabs 0RF Discontinued prucalopride (Motegrity) Discontinued Reason: Doctor's Order 1 mg PO DAILY 90 days 90 tabs 1RF Coding Level of Care Code Est Pt Level 4 (87892) Diagnoses Constipation K59.00 Gastroparesis K31.84 Obesity E66.9
[2024-06-24 12:15] VITALS: BP 128/72; PULSE 94; BMI 32.3
--- OUTSIDE RECORDS SUMMARY | 2024-06-24 13:52 | XMS_ITS | Encounter Summary ---
Author Organization [facility] Address [address] [place] [address] Care Team Providers Care Perl Developer Name Role Phone [place] Primary Care Provider [phone] Reason for Referral * Consultation (Routine) - Authorized Specialty Diagnoses / Procedures Referred By Paloma wren Referred To Contact Sleep Medicine Diagnoses Heart palpitations Snoring Dizziness Nocturnal headaches Witnessed episode of apnea Grace Arthur NP [address] [address] Phone: tel: fax: Referral ID Status Reason Start Date Expiration Date Visits Requested Visits Authorized [id number] Authorized Specialty Services Required 05/19/2024 05/19/2025 1 1 Reason for Visit * Reason Comments Pre-op Exam Encounter Details Date Type Department Care Team (Late st Contact Info) Description 05/19/2024 12:40 PM EST Consult [facility] [address] [facility] [address] [place] [address] Grace Arthur NP [address] [place] [address] Heart palpitations (Primary Dx); Inappropriate sinus tachycardia (CMS/HCC); PSVT (paroxysmal supraventricular tachycardia) (CMS/HCC); LBBB (left bundle branch block); Hypertension, unspecified type; Mixed hyperlipidemia; Snoring; Witnessed episode of apnea; Dizziness; Nocturnal headaches; Near syncope; Dyspnea on exertion; Preoperative cardiovascular examination Social History Tobacco Use Types Packs/Day Years Used Date Smoking Tobacco: Never Smokeless Tobacco: Never Alcohol Use Standard Drinks/Week Comments No 0 (1 standard drink = 0.6 oz pur e alcohol) Comments Unknown Sex and Gender Information Value Date Recorded Sex Assigned at Not on file Legal Sex Female 4:27 AM EST Gender Identity Not on file Sexual Orientation Not on file documented as of this encounter Last Filed Vital Signs Vital Sign Reading Time Taken Comments Blood Pressure 122/80 05/19/2024 12:45 PM EST Pulse 75 05/19/2024 12:45 PM EST Temperature - - Respiratory Rate - - Oxygen Saturation 96% 05/19/2024 12:45 PM EST Inhaled Oxygen Concentration - - Weight 79.4 kg (175 lb) 05/19/2024 12:45 PM EST Height 157.5 cm (5' 2 ) 05/19/2024 12:45 PM EST Body Mass Index 32.01 05/19/2024 12:45 PM EST documented in this encounter Progress Notes * Grace Arthur NP - 05/19/2024 12:40 PM ESTAssociated Problem(s): Mixed hyperlipidemia The patient's most recent lipid panel completed 05/03/2024 revealed an LDL of 107; this is typicallyfollowed by her PCP. Most recent A1c was 6.8%; given her diagnosis of diabetes, LDL goal would be less than 70. She will discuss escalation of antilipid medications further with her PCP; continue atorvastatin 20 mg daily at this time. We discussed risk reduction through lifestyle choices including healthy diet, routine exercise and weight management. I have reviewed with the patient the importance of a heart healthy lifestyle which includes eating a low-fat low-salt diet, getting regular exercise, maintaining a healthy weight, not smoking, and following up with routine medical care. * Grace Arthur NP - 05/19/2024 12:40 PM ESTAssociated Problem(s): Snoring The patient's symptoms of snoring with witnessed apneic episodes requiring physical stimulation to prompt her to start breathing again, dizziness, nocturnal headaches, near syncope, and palpitations are very strongly suggestive of untreated sleep apnea. The most recent sleep study unable to find was completed in 2015 showing significant snoring but did not meet criteria for AJAY and an in facilitystudy was encouraged to be completed for further evaluation should suspicion be high. A repeat in facility sleep study was ordered for her at her last visit; however, she never had this completed. I will refer her to sleep medicine for further evaluation and treatment today. We discussed the long-term potential negative implications of untreated sleep apnea as it pertains to her cardiovascular health; she verbalizes understanding of this. Orders: Ambulatory referral to Sleep Medicine; Future * Grace Arthur NP - 05/19/2024 12:40 PM ESTAssociated Problem(s): Heart palpitations The patient has a very long history of palpitations for which she had an ILR in place from 2015 to 2021 in which only revealed PSVT. She had a 14-day ROCT ordered in August 2022 but was only able to tolerate the monitor for approximately 3 days due to significant skin irritation from the leads; this did not identify any significant arrhythmias. During hospitalizations, she has not had any significant arrhythmias noted either. She continues to report episodes of significant palpitations during her visit today, accompanied by severe dizziness and presyncope. We discussed repeating ambulatory monitoring for reevaluation; however, she states that she does not think a 24-hour monitor would catch her symptoms due to the frequency of which they occur and she does not feel as though she would be able to tolerate any longer monitoring due to skin irritation. She would be amenable to another ILR; I will discuss this further with Dr. Hobbs and proceed accordingly. We will update some blood work today to evaluate for possible underlying anemia, metabolic derangement, or thyroid dysregulation that may be contributory. I have a strong suspicion that many of her symptoms are related to untreated sleep apnea for which a sleep study has been ordered previously in June 2023; unfortunately, she has not had this completed and has not had further follow-up in our office since. This will be discussed further below. Orders: ECG 12 lead Ambulatory referral to Sleep Medicine; Future Complete blood count; Future Basic metabolic panel; Future Magnesium; Future Thyroid stimulating hormone with reflex to free t4 and free t3; Future * Grace Arthur NP - 05/19/2024 12:40 PM ESTAssociated Problem(s): Inappropriate sinus tachycardia (CMS/HCC) Heart rate is well-controlled at her visit today; as above, unable to repeat any ambulatory monitoring for further evaluation given her history of skin irritation. Continue metoprolol and ivabradine. Orders: Thyroid stimulating hormone with reflex to free t4 and free t3; Future * Grace Arthur NP - 05/19/2024 12:40 PM ESTAssociated Problem(s): PSVT (paroxysmal supraventricular tachycardia) (CMS/HCC) As above. * Grace Arthur NP - 05/19/2024 12:40 PM ESTAssociated Problem(s): LBBB (left bundle branch block) Unchanged on EKG today and has been noted for many years. Nuclear stress testing most recently completed in April 2023 did not reveal any findings suggestive of ischemia or infarct. * Grace Arthur NP - 05/19/2024 12:40 PM ESTAssociated Problem(s): Hypertension Blood pressure is favorable on current medical therapy; continue hydrochlorothiazide and metoprolol. Naproxen should be avoided as NSAIDs can aggravate hypertension and underlying cardiovascular disease. We will Orders: Complete blood count; Future Basic metabolic panel; Future Magnesium; Future * Grace Arthur NP - 05/19/2024 12:40 PM ESTAssociated Problem(s): Dizziness Orders: Ambulatory referral to Sleep Medicine; Future Complete blood count; Future Basic metabolic panel; Future Magnesium; Future Thyroid stimulating hormone with reflex to free t4 and free t3; Future * Grace Arthur NP - 05/19/2024 12:40 PM ESTAssociated Problem(s): Nocturnal headaches Orders: Ambulatory referral to Sleep Medicine; Future * Grace Arthur NP - 05/19/2024 12:40 PM ESTAssociated Problem(s): Witnessed episode of apnea Orders: Ambulatory referral to Sleep Medicine; Future * Grace Arthur NP - 05/19/2024 12:40 PM ESTAssociated Problem(s): Near syncope * Grace Arthur NP - 05/19/2024 12:40 PM ESTAssociated Problem(s): Dyspnea on exertion Dyspnea on exertion may be multifactorial in origin related to underlying deconditioning and obesity. She reports that this has been ongoing for many years; during this timeframe she had a stress test completed in April 2023 which did not show any evidence of ischemia or infarct. Previous echocardiograms also completed within this timeframe as noted above have not shown any significant valvulardysfunction, systolic or diastolic dysfunction, or other structural disease to account for her symptoms. She had a previous diagnosis of hypertrophic obstructive cardiomyopathy, but her most recent echocardiogram in May 2023 did not support this and this diagnosis was removed from her chart. To date, no obvious cardiac cause has been found for her symptoms. She was encouraged to continue following up with her primary care regarding this for further evaluation and treatment. * Grace Arthur NP - 05/19/2024 12:40 PM ESTAddended by: WAYNE ARTHUR on: 06/06/2024 03:47 PM Modules accepted: Orders * Grace Arthur NP - 05/19/2024 12:40 PM EST Images from the original note were not included. [facility] PRIMARY HELMINTHOLOGIST: Yuriy Hobbs MD PCP: LOVE Arango HPI: Sylvia Miller is a 48 y.o. old female with a past medical history significant for palpitations, chest pain, inappropriate sinus tachycardia, PSVT, hypertension, left bundle branch block, and hyperlipidemia. She is status post ILR placement for PSVT in 2015 (removed in 2021 after reaching end-of-life). Thepatient underwent 14-day ROCT in August 2022; however, was only able to tolerate the monitor for totalof 3 days and 19 minutes as she had significant skin irritation from the leads. The predominant rhythm was sinus rhythm with supraventricular ectopy singles; there were no patient triggered symptomatic events. The patient had a normal regadenoson nuclear stress test on 05/05/2023 due to reports of chest pressure accompanied by palpitations that was predictable in nature with exertion and increased stress. LVEF was 81% with stress. The patient's most recent echocardiogram on 06/04/2023 was essentially normal with normal LV size and wall thickness and internal chamber dimensions. Normal diastolic function. Slight hypertrophy at the very base of the septum. EF was in the range of 60%. Normal RV size and function, normal atria, no significant valvular abnormality. No significant changes dating back to [address] Hobbs, the reading provider, suggested the patient should no longer be given a diagnosis of obstructive hypertrophic cardiomyopathy as it was not present. As such, this diagnosis has been removed from the patient's chart. 48-hour Holter completed in June 2023 for reports of palpitations showed normal sinus rhythm with sinus tachycardia and a left bundle branch block. Heart rate range 60 to 145 bpm with an average of 90 bpm; total time in sinus tachycardia was 14 hours and 40 minutes. Rare PACs with a few atrial pairs and single 3 beat atrial run; overall ectopic burden 0.0%. Diary returned with 1 episode of palpit ations, lightheadedness, dizziness, and shortness of breath; EKG at that time showed normal sinus rhythm. Given her elevated average heart rate and total time in sinus tachycardia, she was started onCorlanor in addition to metoprolol succinate 150 mg daily. The patient presents today for preoperative cardiovascular exam; she plans to undergo a left knee partial lateral minisectomy on 05/30/2024. She is primarily Polish-speaking and an electronically mediated buffing wheel raker was used for visit today ([employer], #[id number]). History of Present Illness The patient presents today reporting ongoing episodes of sudden, intense palpitations described as a sensation of rapid heart pumping which are associated with dizziness and visual disturbances such as seeing spots; these will occasionally make her feel presyncopal but she has not actually syncopized. These episodes occur during both the day and the night with a frequency of approximately 2-3 times per week. She reports severe dizziness upon waking in the morning, often accompanied by nausea; often times she will have headaches at night. She reports similar episodes in the past, 1 of which resulted in a 3-day hospital admission due to a suspected mini stroke. On review of her chart from [facility], I see a discharge summary from 09/27/2021 where she presented with elevated blood pressure, constant anterior chest pressure, head pressure, numbness of the whole tongue, and bilateral visual blurriness. She was monitored on telemetry which did not show any acute or life-threatening arrhythmias; ACS was ruled out with serial EKGs that were unchanged and 3 consecutive negative troponins. Her chest discomfort was felt to be likely due to noncardiac etiology. CT of her head was negative; she had no focal neurodeficit. She has not been seen by neurology for her symptoms. She reports that until February 2024 she remained active with normal daily activities, doing her own shopping and housework. However, her knee pain has since limited her significantly and she describes being quite sedentary due to intense knee pain if she stands for more than a few minutes. She uses a walker at home. She is able to perform basic ADLs now but typically has somebody else do her grocery shopping and does any other shopping online. She denies any chest pain or pressure at rest or with exertion currently and prior to February. She does have occasional shortness of breath with exertion such as when climbing stairs; she reports that this has been problematic for her for many yearsand she has previously been unable to exercise regularly as a result. However, she reports that no underlying causes of her been found for which she feels this way. She denies any peripheral edema orabdominal distention. She elevates the head of her bed due to a history of heartburn but otherwise denies any orthopnea; she does endorse PND as well as significant snoring and apneic episodes duringsleep that have been witnessed by her boyfriend requiring him to physically stimulate her so that she resumes breathing. She reports having had 2 previous sleep studies, both of which were normal. Per my previous note, she had a home sleep study completed in 2016 that showed significant snoring butshe did not meet criteria for AJAY; an in facility study was suggested and ordered for her at her last visit with me, although this does not appear to have ever been completed and she confirms this today. ACTIVE MEDICATIONS: Current Outpatient Medications Medication Instructions albuterol HFA (PROAIR HFA ; PROVENTIL HFA ; VENTOLIN HFA) 90 mcg/actuation inhaler Inhale into the lungs. atorvastatin (LIPITOR) 20 mg tablet TOME DILCIA TABLETA TODOS LOS D citalopram (CeleXA) 10 mg tablet Take 1 Tab by mouth daily. hydroCHLOROthiazide 12.5 mg tablet TOME DILCIA TABLETA TODO LOS BERNSTEIN ivabradine (Corlanor) 5 mg tablet Take 5 mg by mouth 2 Times Daily. metFORMIN XR (GLUCOPHAGE-XR) 750 mg 24 hr tablet Take 500 mg by mouth daily (with breakfast). metoprolol succinate (TOPROL-XL) 100 mg 24 hr tablet Take 1.5 Tablets by mouth daily. naproxen (NAPROSYN) 500 mg tablet Take 1 Tablet by mouth as needed. omeprazole (PriLOSEC) [address] capsule TOME DILCIA CAPSULA TODOS LOS BERNSTEIN sertraline (ZOLOFT) 100 mg tablet Take 1.5 Tabs by mouth daily. zolpidem (AMBIEN) 10 mg tablet Take 10 mg by mouth at bedtime. PAST MEDICAL HISTORY: Patient Active Problem List Diagnosis Absolute anemia Constipation Dysuria Fatigue GERD (gastroesophageal reflux disease) Heart murmur Heart palpitations Hyperglycemia Hypertension Insomnia LBBB (left bundle branch block) Mild reactive airways disease Mixed hyperlipidemia Nocturnal headaches Postural dizziness with near syncope Precordial pain Type 2 diabetes mellitus without complication, without long-term current use of insulin (CMS/HCC) PSVT (paroxysmal supraventricular tachycardia) (CMS/HCC) Pure hypercholesterolemia Snoring Subaortic membrane Class 1 obesity due to excess calories with serious comorbidity and body mass index (BMI) of 33.0 to 33.9 in adult Inappropriate sinus tachycardia (CMS/HCC) ALLERGIES: Allergies Allergen Reactions Latex Rash Oxycodone-Acetaminophen Hallucinations Lisinopril Cough Increased cough w/increased dose (20mg) SOCIAL HISTORY: Social History Tobacco Use Smoking status: Never Smokeless tobacco: Never Substance Use Topics Alcohol use: No PHYSICAL EXAM: Vitals: 05/19/24 1245 BP: 122/80 BP Location: Left arm Patient Position: Sitting BP Cuff Size: Large adult Pulse: 75 SpO2: 96% Weight: 79.4 kg (175 lb) Height: 1.575 m (62 ) Body mass index is 32.01 kg/m??. Physical Exam Vitals reviewed. Constitutional: General: She is not in acute distress. Appearance: Normal appearance. She is obese. She is not ill-appearing. HENT: Head: Normocephalic and atraumatic. Mouth/Throat: Mouth: Mucous membranes are moist. Eyes: General: No scleral icterus. Extraocular Movements: Extraocular movements intact. Pupils: Pupils are equal, round, and reactive to light. Neck: Vascular: No carotid bruit. Cardiovascular: Rate and Rhythm: Normal rate and regular rhythm. Pulses: Normal pulses. Heart sounds: Normal heart sounds. No murmur heard. No friction rub. No gallop. Pulmonary: Effort: Pulmonary effort is normal. No respiratory distress. Breath sounds: Normal breath sounds. No wheezing, rhonchi or rales. Abdominal: General: There is no distension. Palpations: Abdomen is soft. Tenderness: There is no abdominal tenderness. Musculoskeletal: General: No swelling. Cervical back: Neck supple. Right lower leg: No edema. Left lower leg: No edema. Skin: General: Skin is warm and dry. Neurological: General: No focal deficit present. Mental Status: She is alert and oriented to person, place, and time. Cranial Nerves: No cranial nerve deficit. Gait: Gait normal. Psychiatric: Attention and Perception: Attention normal. Mood and Affect: Mood and affect normal. Behavior: Behavior normal. Thought Content: Thought content normal. EKG: Encounter Date: 05/19/24 ECG 12 lead Result Value Ventricular Rate ECG 75 Atrial Rate 75 P-R Interval 140 QRS Duration 130 Q-T Interval 422 QTc 471 P Wave [place] 50 R [place] 65 T [place] 74 ECG Interpretation Normal sinus rhythm Left bundle branch block Abnormal ECG When compared with ECG of 09-JUN-2023 16:05, Nonspecific T wave abnormality no longer evident in Inferior leads *Note: Due to a large number of results and/or encounters for the requested time period, some results have not been displayed. A complete set of results can be found in Results Review. TESTING: Lab Results Component Value Date CHOL 202 (H) 05/03/2024 CHOL 0 07/30/2022 Lab Results Component Value Date HDL 44 05/03/2024 HDL 0 07/30/2022 Lab Results Component Value Date LDLCALC 107 (H) 05/03/2024 Lab Results Component Value Date TRIG 256 (H) 05/03/2024 TRIG 0 07/30/2022 Lab Results Component Value Date CHOLHDL 4.6 (H) 05/03/2024 Lab Results Component Value Date NA 138 05/03/2024 K 4.3 05/03/2024 CL 105 05/03/2024 CO2 29 05/03/2024 GLUCOSE 106 (H) 05/03/2024 BUN 11 05/03/2024 CREATININE 0.59 05/03/2024 CALCIUM 9.3 05/03/2024 PROT 6.9 05/03/2024 ALBUMIN 3.7 05/03/2024 BILITOT 0.4 05/03/2024 AST 27 05/03/2024 ALT 32 05/03/2024 ALKPHOS 91 05/03/2024 EGFR 110 05/03/2024 Lab Results Component Value Date HGBA1C 6.8 (H) 05/03/2024 ASSESSMENT/PLAN: Assessment & Plan Heart palpitations The patient has a very long history of palpitations for which she had an ILR in place from 2015 to 2021 in which only revealed PSVT. She had a 14-day ROCT ordered in August 2022 but was only able to tolerate the monitor for approximately 3 days due to significant skin irritation from the leads; this did not identify any significant arrhythmias. During hospitalizations, she has not had any significant arrhythmias noted either. She continues to report episodes of significant palpitations during her visit today, accompanied by severe dizziness and presyncope. We discussed repeating ambulatory monitoring for reevaluation; however, she states that she does not think a 24-hour monitor would catch her symptoms due to the frequency of which they occur and she does not feel as though she would be able to tolerate any longer monitoring due to skin irritation. She would be amenable to another ILR; I will discuss this further with Dr. Hobbs and proceed accordingly. We will update some blood work today to evaluate for possible underlying anemia, metabolic derangement, or thyroid dysregulation that may be contributory. I have a strong suspicion that many of her symptoms are related to untreated sleep apnea for which a sleep study has been ordered previously in June 2023; unfortunately, she has not had this completed and has not had further follow-up in our office since. This will be discussed further below. Orders: ECG 12 lead Ambulatory referral to Sleep Medicine; Future Complete blood count; Future Basic metabolic panel; Future Magnesium; Future Thyroid stimulating hormone with reflex to free t4 and free t3; Future Inappropriate sinus tachycardia (CMS/HCC) Heart rate is well-controlled at her visit today; as above, unable to repeat any ambulatory monitoring for further evaluation given her history of skin irritation. Continue metoprolol and ivabradine. Orders: Thyroid stimulating hormone with reflex to free t4 and free t3; Future PSVT (paroxysmal supraventricular tachycardia) (CMS/HCC) As above. LBBB (left bundle branch block) Unchanged on EKG today and has been noted for many years. Nuclear stress testing most recently completed in April 2023 did not reveal any findings suggestive of ischemia or infarct. Hypertension, unspecified type Blood pressure is favorable on current medical therapy; continue hydrochlorothiazide and metoprolol. Naproxen should be avoided as NSAIDs can aggravate hypertension and underlying cardiovascular disease. We will Orders: Complete blood count; Future Basic metabolic panel; Future Magnesium; Future Mixed hyperlipidemia The patient's most recent lipid panel completed 05/03/2024 revealed an LDL of 107; this is typicallyfollowed by her PCP. Most recent A1c was 6.8%; given her diagnosis of diabetes, LDL goal would be less than 70. She will discuss escalation of antilipid medications further with her PCP; continue atorvastatin 20 mg daily at this time. We discussed risk reduction through lifestyle choices including healthy diet, routine exercise and weight management. I have reviewed with the patient the importance of a heart healthy lifestyle which includes eating a low-fat low-salt diet, getting regular exercise, maintaining a healthy weight, not smoking, and following up with routine medical care. Snoring The patient's symptoms of snoring with witnessed apneic episodes requiring physical stimulation to prompt her to start breathing again, dizziness, nocturnal headaches, near syncope, and palpitations are very strongly suggestive of untreated sleep apnea. The most recent sleep study unable to find was completed in 2015 showing significant snoring but did not meet criteria for AJAY and an in facilitystudy was encouraged to be completed for further evaluation should suspicion be high. A repeat in facility sleep study was ordered for her at her last visit; however, she never had this completed. I will refer her to sleep medicine for further evaluation and treatment today. We discussed the long-term potential negative implications of untreated sleep apnea as it pertains to her cardiovascular health; she verbalizes understanding of this. Orders: Ambulatory referral to Sleep Medicine; Future Witnessed episode of apnea Orders: Ambulatory referral to Sleep Medicine; Future Dizziness Orders: Ambulatory referral to Sleep Medicine; Future Complete blood count; Future Basic metabolic panel; Future Magnesium; Future Thyroid stimulating hormone with reflex to free t4 and free t3; Future Nocturnal headaches Orders: Ambulatory referral to Sleep Medicine; Future Near syncope Dyspnea on exertion Dyspnea on exertion may be multifactorial in origin related to underlying deconditioning and obesity. She reports that this has been ongoing for many years; during this timeframe she had a stress test completed in April 2023 which did not show any evidence of ischemia or infarct. Previous echocardiograms also completed within this timeframe as noted above have not shown any significant valvulardysfunction, systolic or diastolic dysfunction, or other structural disease to account for her symptoms. She had a previous diagnosis of hypertrophic obstructive cardiomyopathy, but her most recent echocardiogram in May 2023 did not support this and this diagnosis was removed from her chart. To date, no obvious cardiac cause has been found for her symptoms. She was encouraged to continue following up with her primary care regarding this for further evaluation and treatment. Preoperative cardiovascular examination As outlined above, the patient has had many years of symptoms which could have a potential underlying cardiac cause; however, the patient has had multiple test completed over the course of this timeframe which have not revealed any significant findings. Her symptoms today remain unchanged. The patient's symptoms as outlined above are likely attributable to severe untreated AJAY which is known to increase the risk of cardiovascular diseases including arrhythmias and hypertension. There are no major clinical predictors of cardiac risk such as recent myocardial infarction, unstable angina, or significant valvular disease. Her cardiac problems appear to be optimized on current medical therapy; prior to her knee injury, her activity level represented greater than 4 METS. Her knee pain is reportedly her only limiting factor at this time; as such, the patient does not require any further cardiac testing at this time. Using the SILVEIRA cardiac risk assessment patient is at a 0.2% risk for perioperative myocardial infarction or cardiac arrest; she understands the risk is not zero. The patient is at an acceptable risk for the proposed surgical procedure. I have obtained verbal consent from Sylvia Miller prior to the recording. I have advised Sylvia Paul that she may refuse the recording and require the recording to be turned off at any time during this encounter. I personally spent a total of >40 minutes, including both [id number]-[id number] and [id number]-face timeon the date of the encounter, addressing the above diagnoses. Activities performed in this time include chart review, obtaining / reviewing history, performing amedically necessary evaluation, documentation and counseling including medical decision making of palpitations, inappropriate sinus tach, PSVT, LBBB, hypertension, hyperlipidemia, snoring, apnea, dizziness, headaches, near syncope, dyspnea on exertion, and preop cardiovascular evaluation. Thank you for allowing us to participate in the care of this patient. The patient will follow up in6 months, sooner PRN. As per AHA guidelines and previously established plan of care by Dr. Yuriy Hobbs MD, we discussed the following today: 1. Heart palpitations 2. Inappropriate sinus tachycardia (CMS/HCC) 3. PSVT (paroxysmal supraventricular tachycardia) (CMS/HCC) 4. LBBB (left bundle branch block) 5. Snoring 6. Hypertension, unspecified type 7. Mixed hyperlipidemia 8. Preoperative cardiovascular examination [facility] Cosigned by Remigio Tee MD at 05/20/2024 2:03 PM EST documented in this encounter Plan of Treatment Upcoming Encounters Date Type Department Care Team (Late st Contact Info) Description 12/07/2024 1:00 PM EDT Office Visit [facility] - [address] [address] [place] [phone] Yuriy Hobbs MD [address] [place] [address] [place] [id number] Scheduled Procedures Name Priority Associated Diagnoses Date/Ti me LOOP RECORDER INSERTION Heart palpitations Inappropriate sinus tachycardia (CMS/HCC) Dizziness Near syncope Scheduled Referrals Name Type Priority Associated Diagnoses Order Schedule Ambulatory referral to Sleep Medicine Outpatient Referral Routine Heart palpitations Snoring Dizziness Nocturnal headaches Witnessed episode of apnea 1 Occurrences starting 05/19/2024 until 05/19/2025 documented as of this encounter Procedures Procedure Name Priority Date/Time Associated Diagnosis Comments ECG 12-LEAD Routine 05/19/2024 1:08 PM EST Heart palpitations documented in this encounter Results * Thyroid stimulating hormone with reflex to free t4 and free t3 (05/19/2024 1:38 PM EST) TSH 2.13 0.40 - 4.00 mcIU/mL LAB CHEMISTRY METHOD 05/19/2024 3:10 PM EST [facility] Blood Venous blood specimen / Unknown Venipuncture / Unknown 05/19/2024 1:38 PM EST 05/19/2024 2:27 PM EST us Grace Arthur ANIMAL COP LAB BLOOD ORDERABLES Final Result [facility] [address] [place] [address], [place] [phone] * Magnesium (05/19/2024 1:38 PM EST) Magnesium 2.2 1.9 - 2.6 mg/dL LAB CHEMISTRY METHOD 05/19/2024 3:00 PM [facility] Blood Venous blood specimen / Unknown Venipuncture / Unknown 05/19/2024 1:38 PM EST 05/19/2024 2:27 PM EST Grace Arthur NP LAB BLOOD ORDERABLES Final Result Performing Organization Address City/[facility]/ZIP Co de Phone Number [facility] [address] [place] [address], [place] [phone] * (ABNORMAL) Basic metabolic panel (05/19/2024 1:38 PM EST) Pathologist [facility] Sodium 137 133 - 145 mmol/L LAB CHEMISTRY METHOD 05/19/2024 3:00 PM [facility] Potassium 4.3 3.5 - 5.5 mmol/L LAB CHEMISTRY METHOD 05/19/2024 3:00 PM [facility] Chloride 103 96 - 110 mmol/L LAB CHEMISTRY METHOD 05/19/2024 3:00 PM [facility] CO2 30 21 - 32 mmol/L LAB CHEMISTRY METHOD 05/19/2024 3:00 PM [facility] Anion Gap 4 3 - 11 LAB CHEMISTRY METHOD 05/19/2024 3:00 PM [facility] Glucose 103(H) 70 - 100 mg/dL LAB CHEMISTRY METHOD 05/19/2024 3:00 PM [facility] BUN 11 5 - 25 mg/dL LAB CHEMISTRY METHOD 05/19/2024 3:00 PM EST [facility] Creatinine 0.62 0.50 - 1.10 mg/dL LAB CHEMISTRY METHOD 05/19/2024 3:00 PM EST [facility] eGFR 109 >=60 mL/min/1. 73m2 LAB CHEMISTRY METHOD 05/19/2024 3:00 PM [facility] Comment:Calculation based on the??Chronic Kidney Disease Epidemiology Collaboration (CKD-EPI) equation refit??without adjustment for race. BUN/Creatinine Ratio 17.7 LAB CHEMISTRY METHOD 05/19/2024 3:00 PM [facility] Calcium 9.7 8.5 - 10.5 mg/dL LAB CHEMISTRY METHOD 05/19/2024 3:00 PM [facility] Blood Venous blood specimen / Unknown Venipuncture / Unknown 05/19/2024 1:38 PM EST 05/19/2024 2:27 PM EST Grace Arthur ANIMAL COP LAB BLOOD ORDERABLES Final Result [facility] [address] [place] [address], * (ABNORMAL) Complete blood count (05/19/2024 1:38 PM EST) WBC 11.4(H) 4.8 - 10.8 K/mcL LAB HEMETOLOGY METHOD 05/19/2024 2:38 PM EST [facility] RBC 4.60 3.80 - 4.80 M/mcL LAB HEMETOLOGY METHOD 05/19/2024 2:38 PM EST [facility] Hemoglobin 13.7 11.5 - 16.0 g/dL LAB HEMETOLOGY METHOD 05/19/2024 2:38 PM EST [facility] Hematocrit 42.3 35.0 - 47.0 % LAB HEMETOLOGY METHOD 05/19/2024 2:38 PM EST [facility] MCV 91.8 79.0 - 98.0 FL LAB HEMETOLOGY METHOD 05/19/2024 2:38 PM EST [facility] MCH 29.7 27.0 - 32.0 pcg LAB HEMETOLOGY METHOD 05/19/2024 2:38 PM EST [facility] MCHC 32.4 32.0 - 37.0 g/dL LAB HEMETOLOGY METHOD 05/19/2024 2:38 PM EST [facility] RDW 13.6 11.0 - 15.0 % LAB HEMETOLOGY METHOD 05/19/2024 2:38 PM EST [facility] Platelets 322 130 - 400 K/mcL LAB HEMETOLOGY METHOD 05/19/2024 2:38 PM EST [facility] MPV 9.8 7.0 - 11.0 FL LAB HEMETOLOGY METHOD 05/19/2024 2:38 PM EST [facility] NRBC 0.0 <1.0 % LAB HEMETOLOGY METHOD 05/19/2024 2:38 PM EST [facility] NRBC Absolute 0.00 <0.10 K/mcL LAB HEMETOLOGY METHOD 05/19/2024 2:38 PM EST [facility] Blood Venous blood specimen / Unknown Venipuncture / Unknown 05/19/2024 1:38 PM EST 05/19/2024 2:27 PM EST Grace Arthur ANIMAL COP LAB BLOOD ORDERABLES Final Result [facility] [address] [place] [address], * ECG 12 lead (05/19/2024 1:08 PM EST) Ventricular Rate ECG 75 BPM GEMUSE Atrial Rate 75 BPM GEMUSE P-R Interval 140 ms GEMUSE QRS Duration 130 ms GEMUSE Q-T Interval 422 ms GEMUSE QTc 471 ms GEMUSE P Wave [place] 50 degrees GEMUSE R [place] 65 degrees GEMUSE T [place] 74 degrees GEMUSE ECG Interpretation Normal sinus rhythm Left bundle branch block Abnormal ECG When compared with ECG of 09-JUN-2023 16:05, Nonspecific T wave abnormality no longer evident in Inferior leads Confirmed by Waleska TEE, REMIGIO ([id number]) on 05/19/2024 3:35:03 PM GEMUSE 05/19/2024 12:5 2 PM EST 05/19/2024 3:35 PM EST Grace Arthur NP ECG ORDERABLES Edite d Result - Final GEMUSE documented in this encounter Visit Diagnoses Diagnosis Heart palpitations- Primary Palpitations Inappropriate sinus tachycardia (CMS/HCC) PSVT (paroxysmal supraventricular tachycardia) (CMS/HCC) Paroxysmal supraventricular tachycardia LBBB (left bundle branch block) Other left bundle branch block Hypertension, unspecified type Mixed hyperlipidemia Snoring Other dyspnea and respiratory abnormality Witnessed episode of apnea Dizziness Dizziness and giddiness Nocturnal headaches Headache Near syncope Dyspnea on exertion Other dyspnea and respiratory abnormality Preoperative cardiovascular examination Pre-operative cardiovascular examination documented in this encounter Orders Case Request Count Last Ordered Date First Orde red Date CASE REQUEST EP LAB 1 06/06/2024 documented in this encounter Care Teams Perl Developer Relationship Specialty Start Date End Date [place] Madera PA [address] [place] [address] PCP - General 07/24/22 documented as of this encounter
--- OUTSIDE RECORDS SUMMARY | 2024-06-24 13:52 | XMS_ITS | Clinical Summary ---
Author Organization [address] [place] [address] Address [address] [place] [address] Phone Care Team Providers Care Soundscriber Mechanic Name Role Phone [place] Primary Care Provider Allergies Active Allergy Reactions Criticality Noted Date Comments Latex Rash High 03/06/2021 Lisinopril Cough 08/20/2020 Increased cough w/increased dose (20mg) Oxycodone-Acetaminophen Hallucinations Medium 01/29/20 13 Medications albuterol HFA (PROAIR HFA ; PROVENTIL HFA ; VENTOLIN HFA) 90 mcg/actuation inhaler Inhale into the lungs. 03/11/2021 Active atorvastatin (LIPITOR) 20 mg tablet TOME DILCIA TABLETA TODO LOS D 10/05/2021 Active citalopram (CeleXA) 10 mg tablet Take 1 Tab by mouth daily. 04/18/2020 Active hydroCHLOROthia zide 12.5 mg tablet TOME DILCIA TABLETA TODOS LOS BERNSTEIN 12/19/2020 Active ivabradine (Corlanor) 5 mg tablet Take 5 mg by mouth 2 Times Daily. 07/06/2023 Active metFORMIN XR (GLUCOPHAGE-XR) 750 mg 24 hr tablet Take 500 mg by mouth daily (with breakfast). Active metoprolol succinate (TOPROL-XL) 100 mg 24 hr tablet Take 1.5 Tablets by mouth daily. 09/19/2021 Active naproxen (NAPROSYN) 500 mg tablet Take 1 Tablet by mouth as needed. Active omeprazole (PriLOSEC) [address] capsule TOME DILCIA CAPSULA DOS LOS BERNSTEIN 11/25/2022 Active sertraline (ZOLOFT) 100 mg tablet Take 1.5 Tabs by mouth daily. Active zolpidem (AMBIEN) 10 mg tablet Take 10 mg by mouth at bedtime. 01/10/2021 Active Active Problems Problem Noted Date Diagnosed Date Inappropriate sinus tachycardia 05/19/2024 Assessment & Plan (05/19/2024 4:10 PM EST): Heart rate is well-controlled at her visit today; as above, unable to repeat any ambulatory monitoring for further evaluation given her history of skin irritation. Continue metoprolol and ivabradine. Orders: Thyroid stimulating hormone with reflex to free t4 and free t3; Future Dizziness 05/19/2024 Assessment & Plan (05/19/2024 4:11 PM EST): Orders: Ambulatory referral to Sleep Medicine; Future Complete blood count; Future Basic metabolic panel; Future Magnesium; Future Thyroid stimulating hormone with reflex to free t4 and free t3; Future Near syncope 05/19/2024 Assessment & Plan (05/19/2024 4:11 PM EST): Witnessed episode of apnea 05/19/2024 Assessment & Plan (05/19/2024 4:11 PM EST): Orders: Ambulatory referral to Sleep Medicine; Future Dyspnea on exertion 05/19/2024 Assessment & Plan (05/19/2024 4:11 PM EST): Dyspnea on exertion may be multifactorial in origin related to underlying deconditioning and obesity. She reports that this has been ongoing for many years; during this timeframe she had a stress test completed in April 2023 which did not show any evidence of ischemia or infarct. Previous echocardiograms also completed within this timeframe as noted above have not shown any significant valvular dysfunction, systolic or diastolic dysfunction, or other structural [...] regarding this for further evaluation and treatment. Constipation 04/01/2024 GERD (gastroesophageal reflux disease) 4 Class 1 obesity due to exces s calories with serious comorbidity and body mass index (BMI) of 33.0 to 33.9 in adult 04/01/2024 Fatigue 06/12/2023 Overview (04/01/2024): Last Assessment & Plan: The patient does not believe she has had a TSH checked in some time; we will check this to rule out that this may be contributing to her fatigue, weight gain, and palpitations. Mixed hyperlipidemia 06/12/2023 Assessment & Plan (05/19/2024 4:10 PM EST): The patient's most recent lipid panel completed 05/03/2024 revealed an LDL of 107; this is typically followed by her PCP. Most recent A1c was [...] and following up with routine medical care. Nocturnal headaches 06/12/2023 Assessment & Plan (05/19/2024 4:11 PM EST): Orders: Ambulatory referral to Sleep Medicine; Future Snoring 06/12/2023 Overview (04/01/2024): Last Assessment & Plan: The patient had a home sleep study completed in 2015 that noted severe snoring but did not meet requirements for AJAY; it was recommended that she have an in facility study completed as the suspicion for this was high. She never had this in facility study completed. Given her reports of significant snoring/reports of severe snoring noted on previous sleep study accompanied by her feelings of not being well rested in the morning and continued fatigue throughout the day, I suspect that she has sleep apnea. We discussed this further and she was initially not willing to complete another sleep study but when we discussed the potential that this could be contributing to many of her other symptoms as well as discussing the long-term implications of this diagnosis if it is in fact present and left untreated, she decided that she would be willing to complete an in facility study for further evaluation. Her constellation of symptoms including chronic fatigue, palpitations, and shortness of breath on exertion may all be secondary to undiagnosed AJAY; her hypertension and resultant morning headaches may also be related to this at least in part. Once the results of her sleep study are made available, we will readdress this. The patient verbalizes understanding and is in agreement with this plan. Assessment & Plan (05/19/2024 4:10 PM EST): The patient's symptoms of snoring with witnessed apneic episodes requiring physical stimulation to prompt her to start breathing again, dizziness, nocturnal headaches, near syncope, and palpitations are very strongly suggestive of untreated sleep apnea. The most recent sleep study unable to find was completed in 2015 showing significant snoring but did not meet criteria for AJAY and an in facility study was encouraged to be completed for further [...] Orders: Ambulatory referral to Sleep Medicine; Future Hypertension 04/20/2023 Overview (04/01/2024): Last Assessment & Plan: Blood pressure is well-controlled in the office today. The patient admits to waking in the night occasionally with a headache as well as waking fairly consistently every morning with a headache that is in the occipital region suggesting that these may be due to hypertension. These headaches are, in fact, accompanied by elevated blood pressures in the range of 160s/100s. Once she takes her medications and her blood pressure improves, her headache resolves as well. She typically takes all of her medications for her blood pressure in the morning antihypertensives in the morning; I suggested that she readjust her regimen taking hydrochlorothiazide and metoprolol in the morning, and trialing taking losartan at night. She is agreeable to this; she will take her blood pressures on waking in the morning as well as in the early afternoon for approximately 1 week and call us with these results as well as notifying us if this has improved her symptoms. If blood pressures are significantly elevated during this 1 week or headaches worsen, she will call us sooner. We will continue to readdress this as needed. Assessment & Plan (05/19/2024 4:10 PM EST): Blood pressure is favorable on current medical therapy; continue hydrochlorothiazide and metoprolol. Naproxen should be avoided as NSAIDs can aggravate hypertension and underlying cardiovascular disease. We will Orders: Complete blood count; Future Basic metabolic panel; Future Magnesium; Future LBBB (left bundle branch block) 04/20/2023 Overview (04/01/2024): Last Assessment & Plan: Left bundle branch present on previous ECGs and remains unchanged we will continue to monitor this. See below. Assessment & Plan (05/19/2024 4:10 PM EST): Unchanged on EKG today and has been noted for many years. Nuclear stress testing most recently completed in April 2023 did not reveal any findings suggestive of ischemia or infarct. Precordial pain 04/20/2023 Overview (04/01/2024): Last Assessment & Plan: The patient did not endorse significant chest pressure on review of her symptoms today; we reviewed her most recent nuclear stress test with regadenoson that was completely normal. She feels reassured by this. In the future, if her blood pressure does not improve with the plan as above, we may consider adding amlodipine to see if this helps to improve her chest discomfort as well as her blood pressure. Pure hypercholesterolemia 04/20/2023 Overview (04/01/2024): Last Assessment & Plan: The patient's last lipid panel completed 01/09/2023 revealed a total cholesterol of 203 with an LDL of 122; she is on atorvastatin 20 mg once daily. We will update lipid panel and readdress this as needed. Postural dizziness with near syncope 05/10/2020 Overview (04/01/2024): Last Assessment & Plan: It is difficult to know what to make of all of these different symptoms. We will do a 30-day R0 CT. I have also shown her the [employer] mobile deep which she seems interested in getting. All of this was done with the aid of an asl interpreter over the Internet. We will have her back in 2 months to see Norris??. PSVT (paroxysmal supraventricular tachycardia) 0 05/10/2020 Assessment & Plan (05/19/2024 4:10 PM EST): As above. Mild reactive airways disease 09/14/2015 Type 2 diabetes mellitus wit hout complication, without long-term current use of insulin 10/10/2014 Absolute anemia 09/08/2014 Subaortic membrane 04/18/2014 Hyperglycemia 12/03/2013 Overview (04/01/2024): Nonfasting glucose 10/11/13 - 183, noted by sail maker. A1cs <6.5, fasting glucose 90-100s Insomnia 06/03/2012 Dysuria 08/27/2011 Heart murmur 12/18/2010 Overview (04/01/2024): Last Assessment & Plan: Most recent echocardiogram completed 06/04/2023 showed no significant valvular disease; she has a history of mild TR on previous echocardiogram. We will continue to monitor this with serial imaging. Heart palpitations 06/10/2010 Overview (04/01/2024): Last Assessment & Plan: The patient has a history of PSVT status post loop recorder that was removed in 2021 after reaching end-of-life. The patient has sensitive skin and was unable to tolerate a 14-day R OCT back in August 2022 due to significant skin irritation; she only completed approximately 3 days out of the 14 which revealed predominant rhythm of normal sinus rhythm with supraventricular ectopy singles and no patient triggered symptomatic events. She presents today reporting that her palpitations have become much more frequent and are happening on a daily basis; occasionally they are accompanied by numbness in her tongue and darkening of the lips. They are very brief and only last approximately 1 minute. The patient believes that she would be able to tolerate a 48-hour Holter monitor; we have ordered this for her today to evaluate this once again. We will readdress this as needed. Assessment & Plan (05/19/2024 4:10 PM EST): The patient has a very long history [...] to free t4 and free t3; Future Encounters Date Type Department Care Team Description 05/19/2024 12:40 PM EST Consult [facility] [address] [place] [address] Grace Abbott NP Heart palpitations (Primary Dx); Inappropriate sinus tachycardia (CMS/HCC); PSVT (paroxysmal supraventricular tachycardia) (CMS/HCC); LBBB (left bundle branch block); Hypertension, unspecified type; Mixed hyperlipidemia; Snoring; Witnessed episode of apnea; Dizziness; Nocturnal headaches; Near syncope; Dyspnea on exertion; Preoperative cardiovascular examination 05/19/2024 Telephone [facility] [address] [place] [address] Grace Abbott NP from Last 3 Months Immunizations Name Administration Dates Next Due Pfizer SARS-CoV-2 COVID-19, mRNA, LNP-S, preservative free 09/20/2020,08/30/2020 Tdap Tetanus diptheria acell ular pertussis (Boostrix; Adacel) 7yo and older 10/10/2014 Surgical History Surgery Date Site/Laterality Comments ESOPHAGOGASTRODUODENOSCOPY 02/24/11 PROCEDURE: PA ESOPHAGOGASTRODUODENOSCOPY TRANSORAL DIAGNOSTIC; COMMENT: normal SECTION PROCEDURE: HISTORICAL DELIVERY; COMMENT: one TUBAL LIGATION 2011 PROCEDURE: HISTORICAL TUBAL LIGATION CARDIAC SURGERY 04/14/2014 PROCEDURE: HISTORICAL HEART SURGERY(ASD,VSD,VALVES); COMMENT: resection of subaortic membrane, left ventricular myotomy and myectomy HYSTERECTOMY 2013 PROCEDURE: HISTORICAL HYSTERECTOMY; COMMENT: Dr. Garcia, pelvi pain, endometrios, removed uterus/cervix Medical History Medical History Date Comments Heart palpitations DX:Heart palp itations Constipation DX:Constipation GERD (gastroesophageal reflux disease) DX:GERD (gastroesophageal reflux disease) HOCM (hypertrophic obstructi ve cardiomyopathy) ([facility]) 10/16/2010 DX:HOCM (hypertrophic obstru ctive cardiomyopathy) ([facility]) History of recurrent UTIs 09/30/2011 DX:His tory of recurrent UTIs Family History Medical History Relation Name Comments Breast cancer Aunt Breast cancer Maternal Grandmother Anemia Mother Diabetes Mother Hypertension Mother Prostate cancer Other maternal gre at-uncle Relation Name Status Comments Aunt Alive Father Maternal Grandmother Mother Alive Other Social History Tobacco Use Types Packs/Day Years Used Date Smoking Tobacco: Never Smokeless Tobacco: Never Alcohol Use Standard Drinks/Week Comments No 0 (1 standard drink = 0.6 oz pur e alcohol) Comments Unknown Sex and Gender Information Value Date Recorded Sex Assigned at Not on file Legal Sex Female 4:27 AM EST Gender Identity Not on file Sexual Orientation Not on file Obstetrics History Last Filed Vital Signs Vital Sign Reading [...] Mass Index 32.01 05/19/2024 12:45 PM EST Plan of Treatment Upcoming Encounters Date Type Department Care Team (Late st Contact Info) Description 12/07/2024 1:00 PM EDT Office Visit [facility] [address] [facility] [address] [place] [address] Yuriy Hobbs MD [address] [place] [id number] Scheduled Procedures Name Priority Associated Diagnoses Date/Ti me LOOP RECORDER INSERTION Heart palpitations Inappropriate sinus tachycardia (CMS/HCC) Dizziness Near syncope Health Maintenance Due Date Last Done Comments Diabetes: Annual Foot Exam 11/05/1983 Diabetes: Annual Retina Eye Exam 11/05/1983 Hepatitis B Vaccines (1 of 3 - 19+ 3-dose series) 1992 Cervical Cancer Screening: Pap Smear 02/19/2020 02/18/2017 Pneumococcal Vaccine: 50+ Years (2 of 2 - PCV) 01/11/2021 01/12/2020 Pneumococcal Vaccine: Pediatrics (0 to 5 Years) and At-Risk Patients (6 to 64 Years) (2 of 2 - PCV) 01/11/2021 01/12/2020 Colorectal Cancer Screening: Colonoscopy 03/16/2022 Social Influencers of Health Screening 03/16/2022 Depression Screening 06/09/2023 06/09/2022 Zoster Vaccines (1 of 2) 11/05/2023 COVID-19 Vaccine ( season) 2023 09/27/2020, 09/22/2020, 09/20/2020, Additional history exists Influenza Vaccine (#1) 2023 Diabetes: Annual Urine Albumin-Creatinine Ratio (uACR) 05/03/2024 Breast Cancer Screening 07/08/2024 07/09/19 23, 07/05/2021, 03/05/2020, Additional history exists DTaP,Tdap,and Td Vaccines (2 - Td or Tdap) 10/10/2024 10/10/2014 Diabetes: Blood Sugar Control Test (HGBA1C) 10/31/2024 05/03/2024, 07/30/2022 Diabetes: Annual GFR (Glomerular Filtration Rate) 05/19/2025 05/19/2024, 05/03/2024, 09/03/2022, Additional history exists Hypertension/CHF/CAD Annual BMP Blood Test 05/19/2025 05/19/2024, 05/03/2024, 09/03/2022, Additional history exists Cholesterol Screening (Lipid Panel) 05/03/2029 05/03/2024, 07/30/2022, 07/30/2022, Additional history exists HIV Screening Completed 07/30/2022 Hepatitis C Screening Completed 07/30/2022, 023 HIB Vaccines Aged Out No longer eligi ble based on patient's age to complete this topic HPV Vaccines Aged Out No longer eligi ble based on patient's age to complete this topic Hepatitis A Vaccines Aged Out No long er eligible based on patient's age to complete this topic IPV Vaccines Aged Out No longer eligi ble based on patient's age to complete this topic MMR Vaccines Aged Out No longer eligi ble based on patient's age to complete this topic Meningococcal ACWY Vaccine Aged Out N o longer eligible based on patient's age to complete this topic Meningococcal B Vacine Aged Out No lo nger eligible based on patient's age to complete this topic RSV Immunization Patients Under 20 months Aged Out No longer eligible based on patient's age to complete this topic Varicella Vaccines Aged Out No longer eligible based on patient's age to complete this topic Procedures Procedure Name Priority Date/Time Associated Diagnosis Comments THYROID STIMULATING HORMONE WITH REFLEX TO FREE T4 AND FREE T3 Routine 05/19/2024 1:38 PM EST Heart palpitations Inappropriate sinus tachycardia (CMS/HCC) Dizziness MAGNESIUM Routine 05/19/2024 1:38 PM EST Heart palpitations Hypertension, unspecified type Dizziness BASIC METABOLIC PANEL Routine 05/19/2024 1:38 PM EST Heart palpitations Hypertension, unspecified type Dizziness COMPLETE BLOOD COUNT Routine 05/19/2024 1:38 PM EST Heart palpitations Hypertension, unspecified type Dizziness ECG 12-LEAD Routine 05/19/2024 1:08 PM EST Heart palpitations LIPID PANEL WITH REFLEX TO DIRECT LDL Routine 05/03/2024 11:52 AM EST Diabetes mellitus (CMS/HCC) Pure hypercholesterolemia Gastroparesis HEMOGLOBIN A1C Routine 05/03/2024 11:52 AM EST Diabetes mellitus (CMS/HCC) Pure hypercholesterolemia Gastroparesis COMPREHENSIVE METABOLIC PANEL Routine 05/03/2024 11:52 AM EST Diabetes mellitus (CMS/HCC) Pure hypercholesterolemia Gastroparesis HEPATITIS C SCREENING Routine 07/30/2022 HIV SCREENING Routine 07/30/2022 SUKHI SCREENING DIGITAL Routine 07/08/2022 1:28 PM EDT Encounter for screening mammogram for malignant neoplasm of breast PAP SMEAR Routine 02/18/2017 from Last 3 Months or Most Recently Relevant to Health Maintenance Results * Thyroid stimulating hormone with reflex to free t4 and free t3 (05/19/2024 1:38 PM EST) TSH 2.13 0.40 - 4.00 mcIU/mL LAB CHEMISTRY METHOD 05/19/2024 3:10 PM EST [facility] Blood Venous blood specimen / Unknown Venipuncture / Unknown 05/19/2024 1:38 PM EST 05/19/2024 2:27 PM EST Grace Abbott NP LAB BLOOD ORDERABLES Final Result [facility] [address] [place] [address], [place] [phone] * (ABNORMAL) Complete blood count (05/19/2024 1:38 PM EST) [facility] WBC 11.4(H) 4.8 - 10.8 K/mcL LAB HEMETOLOGY METHOD 05/19/2024 2:38 PM [facility] RBC 4.60 3.80 - 4.80 M/mcL LAB HEMETOLOGY METHOD 05/19/2024 2:38 PM [facility] Hemoglobin 13.7 11.5 - 16.0 g/dL LAB HEMETOLOGY METHOD 05/19/2024 2:38 PM [facility] Hematocrit 42.3 35.0 - 47.0 % LAB HEMETOLOGY METHOD 05/19/2024 2:38 PM [facility] MCV 91.8 79.0 - 98.0 FL LAB HEMETOLOGY METHOD 05/19/2024 2:38 PM [facility] MCH 29.7 27.0 - 32.0 pcg LAB HEMETOLOGY METHOD 05/19/2024 2:38 PM [facility] MCHC 32.4 32.0 - 37.0 g/dL LAB HEMETOLOGY METHOD 05/19/2024 2:38 PM [facility] RDW 13.6 11.0 - 15.0 % LAB HEMETOLOGY METHOD 05/19/2024 2:38 PM [facility] Platelets 322 130 - 400 K/mcL LAB HEMETOLOGY METHOD 05/19/2024 2:38 PM [facility] MPV 9.8 7.0 - 11.0 FL LAB HEMETOLOGY METHOD 05/19/2024 2:38 PM [facility] NRBC 0.0 <1.0 % LAB HEMETOLOGY METHOD 05/19/2024 2:38 PM [facility] NRBC Absolute 0.00 <0.10 K/mcL LAB HEMETOLOGY METHOD 05/19/2024 2:38 PM EST [facility] Blood Venous blood specimen / Unknown Venipuncture / Unknown 05/19/2024 1:38 PM EST 05/19/2024 2:27 PM EST Grace Abbott [employer] LAB BLOOD ORDERABLES Final Result [facility] [address] [place] [address], [place] [phone] * Magnesium (05/19/2024 1:38 PM EST) [facility] Magnesium 2.2 1.9 - 2.6 mg/dL LAB CHEMISTRY METHOD 05/19/2024 3:00 PM EST [facility] Blood Venous blood specimen / Unknown Venipuncture / Unknown 05/19/2024 1:38 PM EST 05/19/2024 2:27 PM EST Grace Abbott [employer]ICAL PROGRAM[employer] LAB BLOOD ORDERABLES Final Result Performing Organization Address City/[facility]/ZIP Co de Phone Number [facility] [address] [place] [address], [place] [phone] * (ABNORMAL) Basic metabolic panel (05/19/2024 1:38 PM EST) [facility] Sodium 137 133 - 145 mmol/L LAB CHEMISTRY METHOD 05/19/2024 3:00 PM EST [facility] Potassium 4.3 3.5 - 5.5 mmol/L LAB CHEMISTRY METHOD 05/19/2024 3:00 PM EST [facility] Chloride 103 96 - 110 mmol/L LAB CHEMISTRY METHOD 05/19/2024 3:00 PM EST [facility] CO2 30 21 - 32 mmol/L LAB CHEMISTRY METHOD 05/19/2024 3:00 PM EST [facility] Anion Gap 4 3 - 11 LAB CHEMISTRY METHOD 05/19/2024 3:00 PM EST [facility] Glucose 103(H) 70 - 100 mg/dL LAB CHEMISTRY METHOD 05/19/2024 3:00 PM [facility] BUN 11 5 - 25 mg/dL LAB CHEMISTRY METHOD 05/19/2024 3:00 PM [facility] Creatinine 0.62 0.50 - 1.10 mg/dL LAB CHEMISTRY METHOD 05/19/2024 3:00 PM EST [facility] eGFR 109 >=60 mL/min/1. 73m2 LAB CHEMISTRY METHOD 05/19/2024 3:00 PM [facility] Comment:Calculation based on the??Chronic Kidney Disease Epidemiology Collaboration (CKD-EPI) equation refit??without adjustment for race. BUN/Creatinine Ratio 17.7 LAB CHEMISTRY METHOD 05/19/2024 3:00 PM EST [facility] Calcium 9.7 8.5 - 10.5 mg/dL LAB CHEMISTRY METHOD 05/19/2024 3:00 PM [facility] Blood Venous blood specimen / Unknown Venipuncture / Unknown 05/19/2024 1:38 PM EST 05/19/2024 2:27 PM EST Grace Abbott [employer]GRAM[employer] LAB BLOOD ORDERABLES Final Result [facility] [address] [place] [address], * ECG 12 lead (05/19/2024 1:08 PM EST) Ventricular Rate ECG 75 BPM GEMUSE Atrial Rate 75 BPM GEMUSE P-R Interval 140 ms GEMUSE QRS Duration 130 ms GEMUSE Q-T Interval 422 ms GEMUSE QTc 471 ms GEMUSE P Wave [place] 50 degrees GEMUSE R [place] 65 degrees GEMUSE T [place] 74 degrees GEMUSE ECG Interpretation Normal sinus rhythm Left bundle branch block Abnormal ECG When compared with ECG of 09-JUN-2023 16:05, Nonspecific T wave abnormality no longer evident in Inferior leads Confirmed by Waleska ALEMAN YUFENG ([id number]) on 05/19/2024 3:35:03 PM GEMUSE 05/19/2024 12:5 2 PM EST 05/19/2024 3:35 PM EST Grace Abbott [employer] CL[employer]ICAL PROGRAM[employer] ECG ORDERABLES Edite d Result - Final GEMUSE * (ABNORMAL) Lipid panel with reflex to direct LDL (05/03/2024 11:52 AM EST) Cholesterol 202(H) 0 - 200 mg/dL LAB CHEMISTRY METHOD 05/03/2024 12:48 PM [facility] Triglycerides 256(H) 0 - 150 mg/dL LAB CHEMISTRY METHOD 05/03/2024 12:48 PM EST [facility] HDL 44 >=40 mg/dL LAB CHEMISTRY METHOD 05/03/2024 12:48 PM EST [facility] LDL Calculated 107(H) 0 - 100 mg/dL LAB CHEMISTRY METHOD 05/03/2024 12:48 PM [facility] VLDL Cholesterol Will 51.2 mg/dL LAB CHEMISTRY METHOD 05/03/2024 12:48 PM [facility] Non HDL Chol. (LDL+VLDL) 158(H) <145 mg/dL LAB CHEMISTRY METHOD 05/03/2024 12:48 PM [facility] Chol/HDL Ratio 4.6(H) 0.0 - 4.4 LAB CHEMISTRY METHOD 05/03/2024 12:48 PM [facility] Blood Venous blood specimen / Unknown Venipuncture / Unknown 05/03/2024 11:52 AM EST 05/03/2024 12:08 PM EST Lisa Webb MD LAB BLOOD ORDERABLES Final Re sult Performing Organization Address City/[facility]/ZIP Co de Phone Number [facility] [address] [place] [address], [place] [phone] * (ABNORMAL) Hemoglobin A1c (05/03/2024 11:52 AM EST) Pathologist [facility] Hemoglobin A1C 6.8(H) <6.5 % LAB CHEMISTRY METHOD 05/03/2024 3:14 PM EST [facility] Mean Bld Glu Estim. 148 mg/dL LAB CHEMISTRY METHOD 05/03/2024 3:14 PM [facility] Blood Venous blood specimen / Unknown Venipuncture / Unknown 05/03/2024 11:52 AM EST 05/03/2024 12:05 PM EST Lisa Webb MD LAB BLOOD ORDERABLES Final Re sult Performing Organization Address [facility]/ZIP Co de Phone Number [facility] [address] [place] [address], [place] [phone] * (ABNORMAL) Comprehensive metabolic panel (05/03/2024 11:52 AM EST) [facility] Sodium 138 133 - 145 mmol/L LAB CHEMISTRY METHOD 05/03/2024 12:46 PM [facility] Potassium 4.3 3.5 - 5.5 mmol/L LAB CHEMISTRY METHOD 05/03/2024 12:46 PM [facility] Chloride 105 96 - 110 mmol/L LAB CHEMISTRY METHOD 05/03/2024 12:46 PM [facility] CO2 29 21 - 32 mmol/L LAB CHEMISTRY METHOD 05/03/2024 12:46 PM [facility] Anion Gap 4 3 - 11 LAB CHEMISTRY METHOD 05/03/2024 12:46 PM [facility] Glucose 106(H) 70 - 100 mg/dL LAB CHEMISTRY METHOD 05/03/2024 12:46 PM [facility] BUN 11 5 - 25 mg/dL LAB CHEMISTRY METHOD 05/03/2024 12:46 PM [facility] Creatinine 0.59 0.50 - 1.10 mg/dL LAB CHEMISTRY METHOD 05/03/2024 12:46 PM [facility] eGFR 110 >=60 mL/min/1. 73m2 LAB CHEMISTRY METHOD 05/03/2024 12:46 PM [facility] Comment:Calculation based on the??Chronic Kidney Disease Epidemiology Collaboration (CKD-EPI) equation refit??without adjustment for race. BUN/Creatinine Ratio 18.6 LAB CHEMISTRY METHOD 05/03/2024 12:46 PM [facility] Calcium 9.3 8.5 - 10.5 mg/dL LAB CHEMISTRY METHOD 05/03/2024 12:46 PM [facility] AST (SGOT) 27 10 - 42 unit/L LAB CHEMISTRY METHOD 05/03/2024 12:46 PM [facility] ALT (SGPT) 32 10 - 60 unit/L LAB CHEMISTRY METHOD 05/03/2024 12:46 PM [facility] Alkaline Phosphatase 91 42 - 121 unit/L LAB CHEMISTRY METHOD 05/03/2024 12:46 PM [facility] Total Protein 6.9 6.0 - 8.0 g/dL LAB CHEMISTRY METHOD 05/03/2024 12:46 PM [facility] Albumin 3.7 3.2 - 5.0 g/dL LAB CHEMISTRY METHOD 05/03/2024 12:46 PM [facility] Total Bilirubin 0.4 0.0 - 1.4 mg/dL LAB CHEMISTRY METHOD 05/03/2024 12:46 PM [facility] Blood Venous blood specimen / Unknown Venipuncture / Unknown 05/03/2024 11:52 AM EST 05/03/2024 12:08 PM EST Lisa Webb MD LAB BLOOD ORDERABLES Final Re sult [facility] [address] [place] [address], [place] [phone] * HIV Screening (07/30/2022) HIV Screening Abstracted Historical Provider HEALTH MAINTENANCE Final Result * Hepatitis C Screening (07/30/2022) Hepatitis C Screening Abstracted Historical Provider HEALTH MAINTENANCE Final Result * SUKHI SCREENING DIGITAL (07/08/2022 1:28 PM EDT) Anatomical Region Laterality Modality Mammography 07/07/2022 1:34 PM EDT Narrative 07/08/2022 1:[address] [facility] Diagnostic Imaging Department [address] [place], [place] [id number] Patient: ??SYLVIA MILLER ?/Age/Sex: 1975 - 46 - F Unit#: ??[id number] ? Location/Status: ??SPDIMAM/REG CLI ? Mnemonic/Ordering Site: ??DIGSC/SPMAM Ordering Physician: ??BALJIT GUSTAFSON Sukhi Screening Digital - 07/07/22 - 1353 INDICATION: SCREENING COMPARISON: [facility] mammograms dating back to ??05/21/2011 TECHNIQUE: CC and MLO views of the breasts were obtained, using full field digital mammography with 3D tomosynthesis views in the MLO projection. Computer aided detection with the StyleSeek 7.2-H was employed. FINDINGS: The breasts contain scattered fibroglandular tissues. No suspicious masses, suspicious microcalcifications, or areas of architectural distortion are identified. ??There are no secondary signs of breast malignancy. IMPRESSION: ??No specific mammographic evidence of breast malignancy. Lack of an imaging correlate should not deter or delay biopsy of a clinically significant palpable finding. BI-RADS ??- Category 1: Negative 3341F, 7025F Annual screening mammography is recommended. Patient entered into a reminder system with a target date for the next mammogram. (G0202 / [id number]) , ??[id number] Dictating Physician: ??RAMOS MARTEL MD Electronically Signed by: ??RAMOS MARTEL MD Dic Date/Time: ??07/08/22 1323 Sign date/Time: ??07/08/22 1328 Procedure Note Ramos Martel MD - 05/15/2023 [facility] Diagnostic Imaging Department [address] [place], [place] [id number] Patient: SYLVIA MILLER /Age/Sex: 1975 - 46 - F Unit#: [id number] [facility]/Ordering Site: [facility] Ordering Physician: BALJIT GUSTAFSON Sukhi Screening Digital - 07/07/22 - 1353 INDICATION: SCREENING COMPARISON: [facility] mammograms dating back to 05/21/2011 TECHNIQUE: CC and MLO views of the breasts were obtained, using full field digital mammography with 3D tomosynthesis views in the MLO projection. Computer aided detection with the StyleSeek 7.2-H was employed. FINDINGS: The breasts contain scattered fibroglandular tissues. No suspicious masses, suspicious microcalcifications, or areas ofarchitectural distortion are identified. There are no secondary signs of breastmalignancy. IMPRESSION: No specific mammographic evidence of breast malignancy. Lack of an imaging correlate should not deter or delay biopsy of aclinically significant palpable finding. BI-RADS - Category 1: Negative 3341F, 7025F Annual screening mammography is recommended. Patient entered into a reminder system with a target date for the next mammogram. 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
== END 2024-06-24 13:08 | disposition home or self-care (01) ==
LOC: HO.HGI 12:08
PROVIDERS: PCP Internal Medicine; Visit Provider Internal Medicine
DX: K59.00 Constipation, unspecified (principal); K31.84 Gastroparesis; E66.9 Obesity, unspecified
CPT/HCPCS: 99214

== ENCOUNTER → 2024-06-24 12:07 | Outpatient (BNVA) | payer MEDICAID, SELFPAY | PROVIDERS: PCP Internal Medicine; Visit Provider Internal Medicine | DX: K31.84 Gastroparesis (principal); K59.00 Constipation, unspecified; E66.9 Obesity, unspecified; Z68.32 Body mass index [BMI] 32.0-32.9, adult | CPT/HCPCS: 99212 ==

== ENCOUNTER 2024-08-19 09:56 | Outpatient (AMB) | payer MEDICAID, SELFPAY ==
--- NOTE | 2024-08-19 10:00 | A.OFFVIS_ITS ---
Vital Signs 08/19/24 10:04 Height 5 ft 2 in Weight 169 lb 12.095 oz BMI 31.0 BP 132/81 Blood Pressure Location Lt brachial Position Sitting Pulse 79 Intake Visit Reasons: f/u gastroparesis Intake Note: Sylvia presents in the office as a follow up for gastroparesis. CC: She states that she is having an issue getting her medication from the pharmacy. 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 Seen with outreach rep. Pt seeking second opinion at [facility] - prev seen by [facility]. Prev w/up [facility]: Barium swallow: no reflux despite provocation. linx position good. egd 12/2023: food in stomach GES 12/2023: 80% retention at 4h. Today: reports main concern is abd pain and bloating after meals. Has reflux sensation. Also reports constipation - goes every 3-4 days. Has DM for which she is on metformin. No recent travel or major illness in the past year. Clonidine noted on med list but has been taking this >1 year. 06/24/24: Here for follow up. Reports limited effect with prucalopride so far. Up to 2 mg once daily dose. Pt also worried about her weight gain as she is sticking to gastroparesis small particle diet with limited fiber and fat and not able to adhere to a diet plan. Looking to discuss GLP 1 with her PCP but also requests a referral. 08/19/24: Here for follow up. Reports didnt have any response to increase in motegrity to 4mg/day. However then also proceeds to say it was never approved by the insurance so unclear if she actually took the 4 mg dose or if still on 2 mg /day. Also not taking miralax or bisacodyl. Reports no BM x 4 days now assoc with abd discomfort and nausea but no vomiting or PO intolerance. Passing gas. [facility] Surgical History Hx of knee surgery Hx of colonoscopy Family History Maternal Grandmother No problems noted. Family/Other Prostate cancer Review of Systems Const All systems reviewed & are unremarkable except as noted in HPI and below Physical Exam Vital Signs: Last Vital Signs Pulse 79 08/19/24 10:04 BP 132/81 08/19/24 10:04 BMI result Body Mass Index 31.0 No apparent distress Nonicteric Abdomen soft, mildly distended, no guarding Alert and oriented x3, uses cane to ambulate Assessment & Plan Assessment & Plan (1) Constipation: Code(s): K59.00 - Constipation, unspecified Category: Medical (2) Gastroparesis: Code(s): K31.84 - Gastroparesis Category: Medical (3) Obesity: Code(s): E66.9 - Obesity, unspecified Category: Medical Plan 1. GI sx driven by hypomotilty - has delayed gastric emptying as well as severe constipation. Etiology of gastroparesis not determined yet. Ddx incudes vagal injury from linx vs diabetic vs idiopathic. Unclear if pt taking 2 mg/day or 4mg/day. She is also not supplementing with osmotic and stimulant laxative. Plan: - Will check on PA status for motegrity 4mg/day - Add miralax BID and dulcolax 10 mg at bedtime - can titrate to effect. Goal 3 BMs per week at least. - For acute constipation, will rx one time mag citrate - Small particle diet - Avoid fatty food and fiber - Stay upright for 60 mins post meals Follow up 2 months - if minimal response to 4 mg motegriry, will trial trulance vs amitiza. Medications: New polyethylene glycol 3350 (Miralax) 17 grams PO BID 238 grams 1RF bisacodyl (Dulcolax (bisacodyl)) 10 mg (2 x 5 mg) PO BEDTIME 90 days PRN 180 tabs 1RF constipation magnesium citrate (Citrate of Magnesia oral) If no BM > 4 days 150 mL PO DAILY PRN 296 mL 1RF constipation Coding Level of Care Code Est Pt Level 4 (87455) Diagnoses Constipation K59.00 Gastroparesis K31.84 Obesity E66.9
[2024-08-19 10:04] VITALS: BP 132/81; PULSE 79; BMI 31.0
--- OUTSIDE RECORDS SUMMARY | 2024-08-19 10:24 | XMS_ITS | Clinical Summary ---
Author Organization [address] [place] [address] Address [address] [place] [address] Phone Care Team Providers Care Custom Shoemaker Name Role Phone Lisa Webb MD Primary Care Provider [phone] Allergies Active Allergy Reactions Criticality Noted Date Comments Latex Rash High 03/06/2021 Lisinopril Cough 08/20/2020 Increased cough w/increased dose (20mg) Oxycodone-Acetaminophen Hallucinations Medium 01/29/20 13 Medications albuterol HFA (PROAIR HFA ; PROVENTIL HFA ; VENTOLIN HFA) 90 mcg/actuation inhaler Inhale into the lungs. 03/11/2021 Active atorvastatin (LIPITOR) 20 mg tablet TOME DILCIA TABLETA TODOS LOS D 10/05/2021 Active citalopram (CeleXA) 10 [...] capsule TOME DILCIA CAPSULA TODOS LOS BERNSTEIN 11/25/2022 Active sertraline (ZOLOFT) 100 mg tablet Take 1.5 Tabs by mouth daily. Active zolpidem (AMBIEN) 10 mg tablet Take 10 mg by mouth at bedtime. 01/10/2021 Active Active Problems Problem Noted Date Diagnosed Date Inappropriate sinus tachycardia (CMS/HCC V24) Assessment & Plan (05/19/2024 4:10 PM EST): [...] treatment. Constipation 04/01/2024 GERD (gastroesophageal reflux disease) Class 1 obesity due to exces s [...] CT. I have also shown her the [employer] mobile deep which she seems interested in getting. All of this was done with the aid of an asl interpreter over the Internet. We will have her back in 2 months to see Norris??. PSVT (paroxysmal supraventri cular tachycardia) ([facility] V24) 05/10/2020 Assessment & Plan (05/19/2024 4:10 PM EST): As above. Mild reactive airways disease 09/14/2015 Type 2 diabetes mellitus wit hout complication, without long-term current use of insulin ([facility] V24, [facility] V28) 10/10/2014 Absolute anemia 09/08/2014 Subaortic membrane 04/18/2014 Hyperglycemia 12/03/2013 Overview (04/01/2024): Nonfasting glucose 10/11/13 - 183, noted by manager warehouse. A1cs <6.5, fasting glucose 90-100s Insomnia 06/03/2012 [...] Encounters Date Type Department Care Team Description 07/29/2024 8:30 AM EDT - 07/29/2024 9:00 AM EDT Surgery [facility] Cardiac Manager [facility]ing [address] [place] [phone] Roosevelt Valentin MD Loop recorder insertion [55314 (CPT??)] 07/29/2024 8:08 AM EDT - 07/29/2024 9:56 AM EDT Hospital Encounter [facility] [address] [place] [address] Roosevelt Valentin MD Heart palpitations; Inappropriate sinus tachycardia (CMS/HCC V24); Dizziness; Near syncope Discharge Disposition: Home or Self Care 06/29/2024 Telephone [facility]iology [facility] [address] [place] [address] Yuriy Hobbs MD Hypertension (Symptoms) 06/29/2024 Telephone [facility] [address] [facility] [address] [place] [address] Roosevelt Valentin MD Procedure (ILR Implant 4.18.25) 06/28/2024 Telephone [facility] [address] [facility] [address] [place] [address] Grace Abbott NP Sleep Study from Last 3 Months Immunizations Name Administration Dates Next Due Pfizer SARS-CoV-2 COVID-19, mRNA, LNP-S, preservative free 09/20/2020,08/30/2020 Tdap Tetanus diptheria acell ular pertussis (Boostrix; Adacel) 7yo and older 10/10/2014 Surgical History Surgery Date Site/Laterality Comments ESOPHAGOGASTRODUODENOSCOPY 02/24/11 PROCEDURE: DC ESOPHAGOGASTRODUODENOSCOPY TRANSORAL DIAGNOSTIC; COMMENT: normal SECTION PROCEDURE: [...] reflux disease) HOCM (hypertrophic obstructi ve cardiomyopathy) (CMS/HCC V24, CMS/HCC V28) 10/16/2010 DX:HOCM (hypertrophic obstru ctive cardiomyopathy) ([facility]) History of recurrent UTIs 09/30/2011 DX:His tory [...] Information Value Date Recorded Sex Assigned at Female 07/29/2024 8:04 AM EDT Legal Sex Female 4:27 AM EST Gender Identity Female 07/29/2024 8:04 AM EDT Sexual Orientation Straight 07/29/2024 8: 04 AM EDT Obstetrics History Last Filed Vital Signs Vital Sign Reading Time Taken Comments Blood Pressure 151/96 07/29/2024 8:19 AM EDT Pulse 74 07/29/2024 8:19 AM EDT Temperature 36.5 ??C (97.7 ??F) 07/29/2024 8:19 AM ED T Respiratory Rate 16 07/29/2024 8:19 AM EDT Oxygen Saturation 97% 07/29/2024 8:19 AM EDT Inhaled Oxygen Concentration - - Weight 77.1 kg (170 lb) 07/29/2024 8:12 AM EDT Height 157.5 cm (5' 2 ) 07/29/2024 8:12 AM EDT Body Mass Index 31.09 07/29/2024 8:12 AM EDT Plan of Treatment Upcoming Encounters Date Type Department Care Team (Late st Contact Info) Description 12/07/2024 1:00 PM EDT Office Visit [facility] [address] [address] Yuriy Hobbs MD [address] [address] Health Maintenance Due Date Last Done Comments [...] 2023 09/27/2020, 09/22/2020, 09/20/2020, Additional history exists Diabetes: Annual Urine Albumin-Creatinine Ratio (uACR) 05/03/2024 Breast Cancer Screening 07/08/2024 07/09/19 23, 07/05/2021, 03/05/2020, Additional history exists DTaP,Tdap,and Td Vaccines (2 - Td or Tdap) 10/10/2024 10/10/2014 Diabetes: Blood Sugar Control Test (HGBA1C) 10/31/2024 05/03/2024, 07/30/2022 Influenza Vaccine (Season Ended) 2024 Diabetes: Annual GFR (Glomerular Filtration Rate) 07/18/2025 07/18/2024, 05/19/2024, 05/03/2024, Additional history exists Hypertension/CHF/CAD Annual BMP Blood Test 07/18/2025 07/18/2024, 05/19/2024, 05/03/2024, Additional history exists Cholesterol Screening (Lipid Panel) [...] age to complete this topic Meningococcal B Vaccine Aged Out No l onger eligible based on patient's age to complete this topic RSV Immunization Patients Under 20 months Aged Out No longer eligible based on patient's age to complete this topic Varicella Vaccines Aged Out No longer eligible based on patient's age to complete this topic Medical Devices Implanted Type Area Sole Cutter Device Identifier Shelf Expiration Date Model / Serial / Lot Monitor Cardiac Insert Lux Dx Ii+-07/29/2024 Implanted:07/12 by Roosevelt Valentin MD (Quantity not on file) Cardiac Loop Recorder N/A: Chest Wall [employer] MG[employer] [id number] 10/27/2025 M312 / [id number] / Monitor Cardiac Insert Lux Dx Ii+ - [id number] - [id number] Implanted:Qty: 1 on 07/29/2024 by Roosevelt Valentin MD at [facility] Cardiac Loop Recorder N/A: Chest Wall [employer] MGMT [id number] 10/27/2025 M312 / [id number] / Procedures Procedure Name Priority Date/Time Associated Diagnosis Comments LOOP RECORDER INSERTION Routine 07/29/2024 8:48 AM EDT Heart palpitations Inappropriate sinus tachycardia (CMS/HCC V24) Dizziness Near syncope CBC WITH AUTO DIFFERENTIAL Routine 07/18/2024 8:04 AM EDT Heart palpitations PROTHROMBIN TIME WITH INR Routine 07/18/2024 8:04 AM EDT Heart palpitations BASIC METABOLIC PANEL Routine 07/18/2024 8:04 AM EDT Heart palpitations CBC AND DIFFERENTIAL Routine 07/18/2024 8:04 AM EDT Heart palpitations HEMOGLOBIN A1C Routine 05/03/2024 11:52 AM EST Diabetes mellitus (CMS/HCC V24, CMS/HCC V28) Pure hypercholesterolemia Gastroparesis LIPID PANEL WITH REFLEX TO DIRECT LDL Routine 05/03/2024 11:52 AM EST Diabetes mellitus (CMS/HCC V24, CMS/HCC V28) Pure hypercholesterolemia Gastroparesis HEPATITIS C SCREENING Routine 07/30/2022 HIV SCREENING Routine 07/30/2022 SUKHI SCREENING DIGITAL Routine 07/08/2022 1:28 PM EDT Encounter for screening mammogram for malignant neoplasm of breast PAP SMEAR Routine 02/18/2017 from Last 3 Months or Most Recently Relevant to Health Maintenance Results * LOOP RECORDER INSERTION (07/29/2024 8:48 AM EDT) Anatomical Region Laterality Modality X-Ray Angiograph y Narrative 08/08/2024 9:22 AM EDT ?Successful implantation of an implantable loop recorder Procedure Details Procedure: Insertion of an implantable loop recorder Indication: This 48-year-old female has recurrent palpitations, presyncope and documented tachycardia Business Account Leader: Roosevelt Valentin MD Device implanted: [employer] Lux DX II model number M312 serial #[id number], R wave 0.18 mV Procedure detail: After obtaining written informed consent the patient was brought to prep and recovery at [facility]. She was prepped in usual sterile fashion. I injected 1% lidocaine with epinephrine at the third intercostal space just left of the sternum. The implantable loop recorder was injected subcutaneously using the introducer device in a standard fashion. Manual compression was used for hemostasis and a small amount of Dermabond placed over the 1 cm incision. There were no immediate complications and the patient was discharged in good condition Impression: Successful implantation of a implantable loop recorder. Grace Abbott NP CV ELECTROPHYSIOLOGY PROCEDURES Final Result * (ABNORMAL) CBC auto differential (07/18/2024 8:04 AM EDT) [facility] WBC 8.7 4.8 - 10.8 K/mcL LAB HEMETOLOGY METHOD 07/18/2024 8:41 AM [facility] RBC 4.30 3.80 - 4.80 M/mcL LAB HEMETOLOGY METHOD 07/18/2024 8:41 AM [facility] Hemoglobin 13.0 11.5 - 16.0 g/dL LAB HEMETOLOGY METHOD 07/18/2024 8:41 AM [facility] Hematocrit 39.3 35.0 - 47.0 % LAB HEMETOLOGY METHOD 07/18/2024 8:41 AM [facility] MCV 91.6 79.0 - 98.0 FL LAB HEMETOLOGY METHOD 07/18/2024 8:41 AM [facility] MCH 30.3 27.0 - 32.0 pcg LAB HEMETOLOGY METHOD 07/18/2024 8:41 AM [facility] MCHC 33.1 32.0 - 37.0 g/dL LAB HEMETOLOGY METHOD 07/18/2024 8:41 AM [facility] RDW 13.0 11.0 - 15.0 % LAB HEMETOLOGY METHOD 07/18/2024 8:41 AM [facility] Platelets 302 130 - 400 K/mcL LAB HEMETOLOGY METHOD 07/18/2024 8:41 AM [facility] MPV 9.8 7.0 - 11.0 FL LAB HEMETOLOGY METHOD 07/18/2024 8:41 AM [facility] NRBC 0.0 <1.0 % LAB HEMETOLOGY METHOD 07/18/2024 8:41 AM [facility] NRBC Absolute 0.00 <0.10 K/mcL LAB HEMETOLOGY METHOD 07/18/2024 8:41 AM [facility] Neutrophils Relative 62.3 % LAB HEMETOLOGY METHOD 07/18/2024 8:41 AM [facility] Lymphocytes Relative 26.3 % LAB HEMETOLOGY METHOD 07/18/2024 8:41 AM [facility] Monocytes Relative 7.0 % LAB HEMETOLOGY METHOD 07/18/2024 8:41 AM [facility] Eosinophils Relative 3.2 % LAB HEMETOLOGY METHOD 07/18/2024 8:41 AM [facility] Basophils Relative 0.5 % LAB HEMETOLOGY METHOD 07/18/2024 8:41 AM [facility] Immature Granulocytes Relative 0.7 % LAB HEMETOLOGY METHOD 07/18/2024 8:41 AM [facility] Neutrophils Absolute 5.41 1.50 - 7.00 K/mcL LAB HEMETOLOGY METHOD 07/18/2024 8:41 AM [facility] Lymphocytes Absolute 2.28 1.00 - 5.00 K/mcL LAB HEMETOLOGY METHOD 07/18/2024 8:41 AM [facility] Monocytes Absolute 0.61 0.20 - 1.00 K/mcL LAB HEMETOLOGY METHOD 07/18/2024 8:41 AM [facility] Eosinophils Absolute 0.28 0.00 - 0.50 K/mcL LAB HEMETOLOGY METHOD 07/18/2024 8:41 AM [facility] Basophils Absolute 0.04 0.00 - 0.20 K/mcL LAB HEMETOLOGY METHOD 07/18/2024 8:41 AM [facility] Immature Granulocytes Absolute 0.06(H) 0.00 - 0.03 K/mcL LAB HEMETOLOGY METHOD 07/18/2024 8:41 AM [facility] Blood Venous blood specimen / Unknown Venipuncture / Unknown 07/18/2024 8:04 AM EDT 07/18/2024 8:31 AM EDT Roosevelt Valentin MD LAB BLOOD ORDERABLES Final Res ult Performing Organization Address [facility]/ZIP Co de Phone Number [facility] [address] [place] [address], [place] [phone] * Prothrombin time with INR (07/18/2024 8:04 AM EDT) Pathologist [facility] Protime 12.3 10.6 - 13.9 sec LAB COAGULATION METHOD 07/18/2024 8:45 AM EDT [facility] INR 1.0 LAB COAGULATION METHOD 07/18/2024 8:45 AM EDT [facility] Blood Venous blood specimen / Unknown Venipuncture / Unknown 07/18/2024 8:04 AM EDT 07/18/2024 8:32 AM EDT us Roosevelt Valentin MD LAB BLOOD ORDERABLES Final Res ult Performing Organization Address [facility]/ZIP Co de Phone Number [facility] [address] [place] [address], [place] [phone] * (ABNORMAL) Basic metabolic panel (07/18/2024 8:04 AM EDT) Pathologist [facility] Sodium 136 133 - 145 mmol/L LAB CHEMISTRY METHOD 07/18/2024 9:06 AM EDT [facility] Potassium 4.1 3.5 - 5.5 mmol/L LAB CHEMISTRY METHOD 07/18/2024 9:06 AM EDT [facility] Chloride 106 96 - 110 mmol/L LAB CHEMISTRY METHOD 07/18/2024 9:06 AM EDT [facility] CO2 23 21 - 32 mmol/L LAB CHEMISTRY METHOD 07/18/2024 9:06 AM EDT [facility] Anion Gap 7 3 - 11 LAB CHEMISTRY METHOD 07/18/2024 9:06 AM [facility] Glucose 148(H) 70 - 100 mg/dL LAB CHEMISTRY METHOD 07/18/2024 9:06 AM [facility] BUN 14 5 - 25 mg/dL LAB CHEMISTRY METHOD 07/18/2024 9:06 AM [facility] Creatinine 0.66 0.50 - 1.10 mg/dL LAB CHEMISTRY METHOD 07/18/2024 9:06 AM [facility] eGFR 107 >=60 mL/min/1. 73m2 LAB CHEMISTRY METHOD 07/18/2024 9:06 AM [facility] Comment:Calculation based on the??Chronic Kidney Disease Epidemiology Collaboration (CKD-EPI) equation refit??without adjustment for race. BUN/Creatinine Ratio 21.2 LAB CHEMISTRY METHOD 07/18/2024 9:06 AM [facility] Calcium 9.3 8.5 - 10.5 mg/dL LAB CHEMISTRY METHOD 07/18/2024 9:06 AM [facility] Blood Venous blood specimen / Unknown Venipuncture / Unknown 07/18/2024 8:04 AM EDT 07/18/2024 8:31 AM EDT us Roosevelt Valentin MD LAB BLOOD ORDERABLES Final Res ult [facility] [address] [place] [address], [place] [phone] * (ABNORMAL) Lipid panel with reflex to direct LDL (05/03/2024 11:52 AM EST) Cholesterol 202(H) 0 - 200 mg/dL LAB CHEMISTRY METHOD 05/03/2024 12:48 PM EST [facility] Triglycerides 256(H) 0 - 150 mg/dL LAB CHEMISTRY METHOD 05/03/2024 12:48 PM EST [facility] HDL 44 >=40 mg/dL LAB CHEMISTRY METHOD 05/03/2024 12:48 PM EST [facility] LDL Calculated 107(H) 0 - 100 mg/dL LAB CHEMISTRY METHOD 05/03/2024 12:48 PM EST [facility] VLDL Cholesterol Will 51.2 mg/dL LAB CHEMISTRY METHOD 05/03/2024 12:48 PM EST [facility] Non HDL Chol. (LDL+VLDL) 158(H) <145 mg/dL LAB CHEMISTRY METHOD 05/03/2024 12:48 PM EST [facility] Chol/HDL Ratio 4.6(H) 0.0 - 4.4 LAB CHEMISTRY METHOD 05/03/2024 12:48 PM [facility] Blood Venous blood specimen / Unknown Venipuncture / Unknown 05/03/2024 11:52 AM EST 05/03/2024 12:08 PM EST us Lisa Webb MD LAB BLOOD ORDERABLES Final Re sult [facility] [address] [place] [address], [place] [phone] * (ABNORMAL) Hemoglobin A1c (05/03/2024 11:52 AM EST) Hemoglobin A1C 6.8(H) <6.5 % LAB CHEMISTRY METHOD 05/03/2024 3:14 PM EST [facility] Mean Bld Glu Estim. 148 mg/dL LAB CHEMISTRY METHOD 05/03/2024 3:14 PM EST [facility] Blood Venous blood specimen / Unknown Venipuncture / Unknown 05/03/2024 11:52 AM EST 05/03/2024 12:05 PM EST us Lisa Webb MD LAB BLOOD ORDERABLES Final Re sult [facility] [address] [place] [address], * HIV Screening (07/30/2022) HIV Screening Abstracted Historical Provider HEALTH MAINTENANCE Final Result * Hepatitis C Screening (07/30/2022) HM Hepatitis C Screening Abstracted us Historical Provider HEALTH MAINTENANCE Final Result * SUKHI SCREENING DIGITAL (07/08/2022 1:28 PM EDT) Anatomical Region Laterality Modality Mammography 07/07/2022 1:34 PM EDT Narrative 07/08/2022 1:28 PM EDT [facility] Diagnostic Imaging Department [address] [place] [address] Patient: ??SYLVIA MILLER ?/Age/Sex: 1975 - 46 - F Unit#: ??[id number] ? Location/Status: ??SPDIMAM/REG CLI ? Mnemonic/Ordering Site: ??DIGSC/SPMAM Ordering Physician: ??BALJIT GUSTAFSON Sukhi Screening Digital - 07/07/22 - [id number] INDICATION: SCREENING COMPARISON: [facility] mammograms dating back to ??05/21/2011 TECHNIQUE: CC and MLO views of the breasts were obtained, using full field digital mammography with 3D tomosynthesis views in the MLO projection. Computer aided detection with the [employer] 7.2-H was employed. FINDINGS: The breasts contain [...] date for the next mammogram. (G0202 / [id number]) , ??[id number] Dictating Physician: ??RAMOS MARTEL MD Electronically Signed by: ??RAMOS MARTEL MD Dic Date/Time: ??07/08/22 1323 Sign date/Time: ??07/08/22 1328 Procedure Note Ramos Martel MD - 05/15/2023 [facility] Diagnostic Imaging Department [address] [place] [address] Patient: SYLVIA MILLER/Age/Sex: 1975 - 46 - F Unit#: [id number] [facility] Mnemonic/Ordering Site: [facility] Ordering Physician: BALJIT GUSTAFSON Sukhi Screening Digital - 07/07/22 - 1353 INDICATION: SCREENING COMPARISON: [facility] mammograms dating back to 05/21/2011 TECHNIQUE: CC and MLO views of the breasts were obtained, using full field digital mammography with 3D tomosynthesis views in the MLO projection. Computer aided detection with the [employer] 7.2-H was employed. FINDINGS: The breasts contain [...] date for the next mammogram. G0202 / [id number]) , [id number] Dictating Physician: RAMOS MARTEL MD Electronically Signed [...] Billing Address Personal/Family Self 1975 [address] [place] [address] MEDICAID - [place] Care Teams Custom Shoemaker Relationship Specialty Start Date End Date Lisa Webb MD [address] [place] [address] Dr Benoit, [place]ACY [address] PCP - General Internal Medicine 07/29/24
--- OUTSIDE RECORDS SUMMARY | 2024-08-19 10:24 | XMS_ITS | Clinical Summary ---
Author Organization [facility] Address [address] [place] [address] Care Team Providers Care Meat And Seafood Manager Name Role Phone Baljit Castro PA-C Primary Care Provider Source Comments PLEASE NOTE, if this patient is a minor, it may be UNLAWFUL to discuss sensitive information that is contained in these records (such as FAMILY PLANNING, MENTAL HEALTH or SUBSTANCE ABUSE) with the minor patient's parent or other person without the patient's specific authorization.[facility] Allergies Active Allergy Reactions Criticality Noted Date Comments Latex Rash High 03/06/2021 Oxycodone-Acetaminophen Other (See Comments) Medications metoprolol succinate (TOPROL-XL) 100 mg 24 hr tablet 1 Active losartan (COZAAR) 100 mg tablet 1 Active hydrOXYzine HCL (ATARAX) 25 mg tablet 1 Active sertraline (ZOLOFT) 100 mg tablet 1 Active traZODone (DESYREL) 50 mg tablet 1 Active zolpidem (AMBIEN) 10 mg tablet 1 Active hydroCHLOROthiazid e (HYDRODIURIL) 12.5 mg tablet 2 Active metFORMIN (GLUCOPHAGE) 500 mg tabletIndications: Controlled type 2 diabetes mellitus without complication, without long-term current use of insulin (HCC-CMS) Take 1 Tablet by mouth 2 (two) times daily with a meal 180 Tablet 1 2 Active atorvastatin (LIPITOR) 20 mg tabletIndications: Hypercholesterolem ia Take 1 Tablet by mouth once daily 90 Tablet 2 2 Active meclizine (ANTIVERT) 25 mg tablet TOME DILCIA TABLETA SARAY VECES AL D A 2 Active diclofenac sodium (VOLTAREN) 1 % gelIndications:Sco liosis of lumbar spine, unspecified scoliosis type,Total body pain Apply 2 g topically 2 (two) times daily 450 g 3 2 Active FLONASE SENSIMIST 27.5 mcg/actuation nasal spray USE 2 SPRAYS IN BOTH NOSTRILS DAILY FOR 30 DAYS 3 Active ondansetron ODT (ZOFRAN-ODT) 4 mg disintegrating tablet TAKE 1 TABLET BY MOUTH 2 TIMES A DAY FOR 3 DAYS NEEDED FOR NAUSEA/VOMITIN G 3 Active hydrocortisone 1 % creamIndications:I nternal hemorrhoid, bleeding Apply topically 2 (two) times daily Please label in Ukrainian, include applicator for internal rectal use 30 g 2 3 Active polyethylene glycol, PEG, 3350 (GLYCOLAX) 17 gram/dose powderIndications: Constipation, unspecified constipation type Take 17 g by mouth once daily 510 g 3 3 Active verapamil SR (CALAN SR) 120 mg CR tablet Take 120 mg by mouth 2 Active dextromethorphan-g uaifenesin (MUCINEX DM) 30-600 mg per 12 hr tabletIndications: Sore throat,Acute cough Take 1 Tablet by mouth 2 (two) times daily 30 Tablet 3 Active benzocaine-menthoL (CEPACOL SORE THROAT, SHAWN-MEN,) 15-3.6 mg lozgIndications:So re throat,Acute cough Place 1 Lozenge in mouth every 2 (two) hours as needed (sore throat) 60 Lozenge 3 Active famotidine (PEPCID) 20 mg tabletIndications: Gastroesophageal reflux disease without esophagitis TAKE 1 TABLET BY MOUTH 2 TIMES DAILY NEEDED FOR HEARTBURN. 180 Tablet 1 4 Active Active Problems Problem Noted Date Diagnosed Date Prediabetes 07/30/2022 History of open heart surgery 06/09/2022 Overview (06/09/2022): Per patient, mass removed in 2016 Followed by Cardiology, Ramírez Malik PA-C at [facility] Cardiac murmur 07/15/2021 Subaortic membrane ([facility]) 07/15/2021 Obesity, Class I, BMI 30-34.9 07/15/2021 Generalized abdominal pain 07/15/2021 Atypical chest pain 07/15/2021 Chronic low back pain 07/15/2021 Gastroesophageal reflux disease 07/15/2021 Hypertrophic obstructive cardiomyopathy(425.11) 07/15/2021 Overview (06/09/2022): Followed by Cardiology, Ramírez Malik PA-C at [facility]. Pain of foot 07/15/2021 Scoliosis of lumbar spine 07/15/2021 Stress hyperglycemia 07/15/2021 Resolved Problems Problem Noted Date Diagnosed Date Resolved Date Postprandial epigastric pain 07/15/2021 07/23/2022 Respiratory insufficiency 07/15/2021 Immunizations Immunization Administration Dates Next Due COVID-19,SARS-COV-2 VACCINE, UNSPECIFIED (US Adm in) 09/22/2020 Moderna COVID-19 Vaccine, re d cap blue label, 12+ Primary Series 09/27/2020 PFIZER COVID VACCINE, PURPLE CAP, 12+ 09/20/2020 ,08/30/2020 PNEUMOCOCCAL POLYSACCHARIDE PPV23 (Pneumovax 23) 01/12/2020 TDAP 10/10/2014 Family History Medical History Relation Name Comments Breast cancer Maternal Aunt Heart attack Maternal Grandfather Breast cancer Maternal Grandmother Diabetes Mother No Known Problems Son 1 No Known Problems Son 2 Relation Name Status Comments Father Maternal Aunt Maternal Grandfather Maternal Grandmother Mother Alive Paternal Grandfather Son 1 Alive Son 2 Alive Social History Tobacco Use Types Packs/Day Years Used Date Smoking Tobacco: Never Smokeless Tobacco: Never Tobacco Cessation:Counseling Given: Not Answered Alcohol Use Standard Drinks/Week Comments Never 0 (1 standard drink = 0.6 oz pur e alcohol) Social Connections Answer Date Recorded Connectedness 0 06/09/2022 Financial Resource Strain Answer Date R ecorded Financial Resource Strain 0 2022 Stress Answer Date Recorded Stress 0 06/09/2022 Physical Activity Answer Date Recorded Physical Activity 0 03/06/2021 Food Insecurity Answer Date Recorded Food 0 06/09/2022 Transportation Needs Answer Date Record ed Transportation 0 06/09/2022 Housing Stability Answer Date Recorded Housing 0 06/09/2022 Safety and Environment Answer Date Julian rded Safety 0 06/09/2022 Utilities Answer Date Recorded Utilities 0 06/09/2022 Employment Answer Date Recorded Stress 0 07/01/2021 Comments No Sex and Gender Information Value Date Recorded Sex Assigned at Female 03/06/2021 8:02 AM PST Legal Sex Female 8:08 AM PDT Gender Identity Female 03/06/2021 8:02 AM PST Sexual Orientation Straight 03/06/2021 8: 02 AM PST Last Filed Vital Signs Vital Sign Reading Time Taken Comments Blood Pressure 132/90 10/08/2022 1:40 PM EDT Pulse 94 10/08/2022 1:40 PM EDT Temperature 37.3 ??C (99.2 ??F) 10/08/2022 1:40 PM ED T Respiratory Rate 16 10/08/2022 1:40 PM EDT Oxygen Saturation 97% 10/08/2022 1:40 PM EDT Inhaled Oxygen Concentration - - Weight 78 kg (172 lb) 10/08/2022 1:40 PM EDT Height 154.9 cm (5' 1 ) 10/08/2022 1:40 PM EDT Body Mass Index 32.5 10/08/2022 1:40 PM EDT Plan of Treatment Health Maintenance Due Date Last Done Comments Anxiety Screening 1973 06/09/2022 Dental FMX/Pano 1973 HPV Screening 1973 Pap + HPV 1973 Tobacco Screening 1973 Imm-Hepatitis B (1 of 3 - 19 + 3-dose series) 1992 Cervical Cancer Screening [address] Colonography 2018 Colonoscopy 2018 Colorectal Cancer Screening 2018 FIT/gFOBT 2018 Fecal DNA 2018 Flexible Sigmoidoscopy 2018 Imm-Pneumococcal (2 of 2 - PCV) 01/11/2021 0 Dental BW 02/16/2023 02/14/2022 Dental Examination 02/16/2023 02/14/2022 Dental Perio Charting 02/16/2023 02/14/2022 Dental Prophy 02/16/2023 02/14/2022 Breast Cancer Screening (Mammogram) 07/08/2023 07/07/2022 Annual Preventive Care Visit 07/31/2023 07/30/2022, 07/15/2021 Hypertension Screening (#1) 10/08/2023 Imm-Zoster, Recombinant (1 of 2) 11/05/2023 [id number] ( season) 2023 09/27/2020, 09/22/2020, 09/20/2020, Additional history exists Imm-Influenza (#1) 2023 Alcohol and Drug Screen 04/13/2024 06/09/19 23, 01/14/2022, 03/06/2021 Depression Annual Screen 04/13/2024 06/09/2022 Imm-DTaP/Tdap/Td (2 - Td or Tdap) 10/10/2024 015 Lipid Screening 05/03/2025 05/03/2024, 04/12/2022, 04/23/2021 Diabetes Screening 05/19/2025 05/19/2024, 0 05/03/2024, 05/03/2024, Additional history exists HIV Screening Completed 07/30/2022, 07/30/2022 Hepatitis C Screening Completed 07/30/2022 Cervical Ablation/Cold-Knife Conization Discontinued Cervical Cryotherapy Discontinued Colposcopy Discontinued Endometrial Biopsy Discontinued Excision/Leep Discontinued HPV Genotyping Discontinued Vaginal Pap Discontinued Vulvoscopy Discontinued Procedures Procedure Name Priority Date/Time Associated Diagnosis Comments HIV 1/2 AG & AB W/RFLX (4TH GEN) Routine 07/30/2022 9:37 AM EDT Screening for viral disease HEPATITIS C AB W/RFLX HCV RNA, QT, RT PCR Routine 07/30/2022 9:37 AM EDT Screening for viral disease COMPREHENSIVE METABOLIC PANEL Routine 07/30/2022 9:37 AM EDT Encounter for annual physical exam LIPID PANEL Routine 07/30/2022 9:37 AM EDT Encounter for annual physical exam REFERRAL FOR MAMMOGRAM Routine 03/27/202 3 3:00 AM EDT Breast cancer screening by mammogram COMP PERIODONTAL EVALUATION - NEW/EST PATIENT Routine 02/14/2022 1:40 PM EDT Gingivitis due to dental plaque BITEWINGS - FOUR RADIOGRAPHIC IMAGES Routine 02/14/2022 1:40 PM EDT Gingivitis due to dental plaque PROPHYLAXIS - ADULT Routine 02/14/2022 1 :40 PM EDT Gingivitis due to dental plaque PERIODIC ORAL EVALUATION ESTABLISHED PATIENT Routine 02/14/2022 1:40 PM EDT Gingivitis due to dental plaque from Last 3 Months or Most Recently Relevant to Health Maintenance Results * HEPATITIS C AB W/RFLX HCV RNA, QT, RT PCR (07/30/2022 9:37 AM EDT) Pathologist [facility] HEPATITIS C ANTIBODY NON-REACT JULIO NON-REACT JULIO [facility] SIGNAL TO CUT-OFF 0.07 <1.00 [facility] Comment: HCV antibody was non-reactive. There is no laboratory evidence of HCV infection. In most cases, no further action is required. However, if recent HCV exposure is suspected, a test for HCV RNA (test code 27963) is suggested. For additional information please refer to http://education.[employer]/faq/UFN90a1 (This link is being provided for informational/ educational purposes only.) Blood Blood / Unknown 07/30/2022 9 :37 AM EDT 07/30/2022 9:37 AM EDT us Baljit Castro PA-C LAB - BLOOD DRAW Edited Resu lt - Final [facility] [address] [place] [id number], [facility] [address] [place] [id number] * HIV 1/2 AG & AB W/RFLX (4TH GEN) (07/30/2022 9:37 AM EDT) Pathologist [facility] HIV AG/AB, 4TH GEN NON-REAC TIVE NON-REAC TIVE [facility] Comment: HIV-1 antigen and HIV-1/HIV-2 antibodies were not detected. There is no laboratory evidence of HIV infection. PLEASE NOTE: This information has been disclosed to you from records whose confidentiality may be protected by state law. ??If your state requires such protection, then the state law prohibits you from making any further disclosure of the information without the specific written consent of the person to whom it pertains, or as otherwise permitted by law. A general authorization for the release of medical or other information is NOT sufficient for this purpose. ?? For additional information please refer to http://GreenSand.[employer]/faq/VYR776 (This link is being provided for informational/ educational purposes only.) The performance of this assay has not been clinically validated in patients less than 2 years old. Blood Blood / Unknown 07/30/2022 9 :37 AM EDT 07/30/2022 9:37 AM EDT Baljit Castro PA-C LAB - BLOOD DRAW Final Resul t [facility] [address] [place] [address], [facility] [address] [phone] * (ABNORMAL) LIPID PANEL (07/30/2022 9:37 AM EDT) CHOLESTEROL, TOTAL 237(H) <200 mg/dL [facility] HDL CHOLESTEROL 68 > OR = 50 mg/dL [facility] TRIGLYCERIDES 141 <150 mg/dL [facility] LDL-CHOLESTEROL 142(H) 99 mg/dL (calc) [facility] Comment: Reference range: <100 Desirable range <100 mg/dL for primary prevention; ?? <70 mg/dL for patients with CHD or diabetic patients with > or = 2 CHD risk factors. LDL-C is now calculated using the Grant-Tara calculation, which is a validated novel method providing better accuracy than the Friedewald equation in the estimation of LDL-C. Grant DALE et al. KELSEY. 2013;310(19): 3023-7424 (http://education.Gloss48/faq/QLJ949) CHOL/HDLC RATIO 3.5 <5.0 (calc) [facility] NON-HDL CHOLESTEROL 169(H) <130 mg/dL (calc) [facility] Comment: For patients with diabetes plus 1 major ASCVD risk factor, treating to a non-HDL-C goal of <100 mg/dL (LDL-C of <70 mg/dL) is considered a therapeutic option. Blood Blood / Unknown 07/30/2022 9 :37 AM EDT 07/30/2022 9:37 AM EDT us Baljit Castro PA-C LAB - BLOOD DRAW Final Resul t [facility] [address] [address], [facility] [address] [place] [address] * (ABNORMAL) COMPREHENSIVE METABOLIC PANEL (07/30/2022 9:37 AM EDT) GLUCOSE 113(H) 65 - 99 mg/dL [facility] Comment: ?Fasting reference interval For someone without known diabetes, a glucose value between 100 and 125 mg/dL is consistent with prediabetes and should be confirmed with a follow-up test. UREA NITROGEN (BUN) 15 7 - 25 mg/dL [facility] CREATININE (blood) 0.72 0.50 - 0.99 mg/dL [facility] [place] [place] EGFR 103 > OR = 60 mL/min/1 .73m2 [facility] Comment: The eGFR is based on the CKD-EPI 2020 equation. To calculate the new eGFR from a previous Creatinine or Cystatin C result, go to https://www.kidney.org/professionals/ kdoqi/gfr%5Fcalculator BUN/CREATININE RATIO NOT APPLICABLE 6 - 22 [facility] SODIUM 138 135 - 146 mmol/L [facility] POTASSIUM 4.7 3.5 - 5.3 mmol/L [facility] CHLORIDE 102 98 - 110 mmol/L [facility] CARBON DIOXIDE 27 20 - 32 mmol/L [facility] [place] [place] [facility] CALCIUM 9.4 8.6 - 10.2 mg/dL [facility] PROTEIN, TOTAL 6.7 6.1 - 8.1 g/dL [facility] ALBUMIN 4.3 3.6 - 5.1 g/dL [facility] GLOBULIN 2.4 1.9 - 3.7 g/dL (calc) [facility] ALBUMIN/GLOBUL IN RATIO 1.8 1.0 - 2.5 (calc) [facility] BILIRUBIN, TOTAL 0.4 0.2 - 1.2 mg/dL [facility] ALKALINE PHOSPHATASE 72 31 - 125 U/L [facility] AST 17 10 - 35 U/L [facility] ALT 19 6 - 29 U/L [facility] Blood Blood / Unknown 07/30/2022 9 :37 AM EDT 07/30/2022 9:37 AM EDT us Baljit Castro PA-C LAB - BLOOD DRAW Edited Resu lt - Final [facility] [address] [id number], [facility] [address] [phone] * REFERRAL FOR MAMMOGRAM (07/07/2022 3:00 AM EDT) 07/07/2022 3:00 AM EDT us Baljit Castro PA-C IMG RFL MAMMO Edited Resul t - Final from Last 3 Months or Most Recently Relevant to Health Maintenance Insurance [place] [facility] DENT[facility] [address] [employer] Care Teams Meat And Seafood Manager Relationship Specialty Start Date End Date Baljit Castro PA-C [address] [place] [address] PCP - General 09/20/21
== END 2024-08-19 10:36 | disposition home or self-care (01) ==
LOC: HO.HGI 09:57
PROVIDERS: PCP Internal Medicine; Visit Provider Internal Medicine
DX: K59.00 Constipation, unspecified (principal); K31.84 Gastroparesis; E66.9 Obesity, unspecified
CPT/HCPCS: 99214

== ENCOUNTER → 2024-08-19 09:56 | Outpatient (BNVA) | payer MEDICAID, SELFPAY | PROVIDERS: PCP Internal Medicine; Visit Provider Internal Medicine | DX: K59.00 Constipation, unspecified (principal); K31.84 Gastroparesis; E66.9 Obesity, unspecified | CPT/HCPCS: 99212 ==

== ENCOUNTER 2024-08-23 14:10 | Outpatient (AMB) | payer MEDICAID, SELFPAY ==
--- NOTE | 2024-08-23 08:53 | A.OFFVIS_ITS ---
Vital Signs 08/23/24 14:19 Height 5 ft 2 in Weight 171 lb 15.369 oz BMI 31.4 BP 112/80 Blood Pressure Location Rt brachial Position Sitting Pulse 98 Pulse Source Pulse Oximeter Pulse Oximetry (%) 96 Oxygen Delivery Method Room Air Intake Visit Reasons: Obesity/T2DM Intake Note: NEW Patient presents today to establish treatment for Type 2 Diabetes Mellitus & Obesity: Last Diabetic eye exam was on: DUE Last Podiatry exam was on: Patient does not see a Loft Worker Most recent HbA1c: 7.5%, 08/23/2024 Random Glucose- 126 mg/dL, Today Manager Technical Sales Required: Yes Manager Technical Sales Language: Damage Adjuster Services: Manager Technical Sales Present Manager Technical Sales Name: [facility] Information Interpreted: non-clinical & clinical Accompanied by: Self / Same As Patient Allergies acetaminophen [From Percocet] Allergy (Mild, Verified 08/23/24 14:17) Unknown latex Allergy (Mild, Verified 08/23/24 14:17) Unknown oxycodone [From Percocet] Allergy (Mild, Verified 08/23/24 14:17) Unknown HPI Comments Details: 48 YO female who is seen in consultation for T2DM. She was referred by GI. Initially diagnosed with T2DM many years ago was told she was pre diabetic. Was initially started on treatment with metformin 2021 Current regimen: metformin ER 500 mg once daily Reports low sugars []. Treats lows with []. [Checks] sugar after to ensure it is rising. [Treats] according to rule of 15's. Most recent A1C today in the office 7.3% Family history of T2DM mother, , aunts, uncles extensive Has eyes checked yearly, last eye exam 2 months No retinopathy. mild cataract mild neuropathy: has some numbness, occasional pain last foot exam today in the office does not see podiatry. [Denies] nephropathy, on [RAGHAVENDRA/ARB]. UAC [] as measured on []. [Has] HLD, on [statin]. Last LDL [] as measured on []. [Denies] CAD. Diet: [] Weight: [] [Had] diabetes education. PFSH Surgical History Hx of knee surgery Hx of colonoscopy Family History Maternal Grandmother No problems noted. Family/Other Prostate cancer Physical Exam Vital Signs: Last Vital Signs Pulse 98 08/23/24 14:19 BP 112/80 08/23/24 14:19 Pulse Ox 96 08/23/24 14:19 Oxygen Delivery Method Room Air 08/23/24 14:19 BMI result Body Mass Index 31.4 Absence of Cushingoid features. Absence of acromegalic features. Neck exam reveals nl size thyroid about 15 gms. No thyroid nodules palpable. No carotid bruits present. Lungs CTA. Heart S1 S2, Reg R/R. No M/R/ G. Skin exam reveals absence of vitiligo or acanthosis nigricans. Abdominal exam reveals Soft NT/ND with NA BS. No organomegaly present. Neck Other: . Extrem Other: Visual exam of foot performed. No ulcerations or open lesions. No onchomycosis, no callouses.Pulses 2 + distally Sensation intact to monofilament exam. Vibratory sensation sensed is intact with 128 Hz tuning fork Results AMB Hemoglobin A1c AMB Hemoglobin A1c 7.5 % Last Edit by CARL Moralez on 08/23/24 14:38 Results Reviewed Results Reviewed: Laboratory Last Values Glucose (Clinic) 126 mg/dL (60-115) H 08/23/24 14:24 Hgb A1c (Clinic) 7.5 % (4.0-6.0) H 08/23/24 14:37 Assessment & Plan Assessment & Plan Orders: Orders AMB Hemoglobin A1c Today E11.9 - Type 2 diabetes mellitus without complications Coding
[2024-08-23 14:19] VITALS: BP 112/80; PULSE 98; O2SAT 96; BMI 31.4
[2024-08-23 14:28] LABS: Glucose, Whole Blood 126 mg/dL (60-115)
--- OUTSIDE RECORDS SUMMARY | 2024-08-23 15:23 | XMS_ITS | Clinical Summary ---
Author Organization [address] [place] [address] Address [address] [place] [address] Phone Care Team Providers Care Supplier Quality Name Role Phone Lisa Webb MD Primary Care Provider [phone] Allergies Active Allergy Reactions Criticality Noted Date [...] CT. I have also shown her the [employer] mobile deep which she seems interested in getting. All of this was done with the aid of an fund manager over the Internet. We will have her back in 2 months to see Norris??. PSVT (paroxysmal supraventri cular tachycardia) ([facility] V24) 05/10/2020 Assessment & Plan (05/19/2024 4:10 PM EST): As above. Mild reactive airways disease 09/14/2015 Type 2 diabetes mellitus wit hout complication, without long-term current use of insulin ([facility] V24, [facility] V28) 10/10/2014 Absolute anemia 09/08/2014 Subaortic membrane 04/18/2014 Hyperglycemia 12/03/2013 Overview (04/01/2024): Nonfasting glucose 10/11/13 - 183, noted by ceramics artist. A1cs <6.5, fasting glucose 90-100s Insomnia 06/03/2012 [...] EDT - 07/29/2024 9:00 AM EDT Surgery [facility] [address] [place] [phone] Roosevelt Valentin MD Loop recorder insertion [26372 (CPT??)] 07/29/2024 8:08 AM EDT - 07/29/2024 9:56 AM EDT Hospital Encounter [facility] [address] [place] [address] Roosevelt Valentin MD Heart palpitations; Inappropriate sinus tachycardia (CMS/HCC V24); Dizziness; Near syncope Discharge Disposition: Home or Self Care 06/29/2024 Telephone [facility] [address] [place] [address] Yuriy Hobbs MD Hypertension (Symptoms) 06/29/2024 Telephone [facility] [address] [facility] [address] [place] [address] Roosevelt Valentin MD Procedure (ILR Implant 4.18.25) 06/28/2024 Telephone [facility] [address] 300 [facility] [address] [place] [address] Grace Abbott NP Sleep Study from Last 3 Months Immunizations Name Administration Dates Next Due Pfizer SARS-CoV-2 COVID-19, mRNA, LNP-S, preservative free 09/20/2020,08/30/2020 Tdap Tetanus diptheria acell ular pertussis (Boostrix; Adacel) 7yo and older 10/10/2014 Surgical History Surgery Date Site/Laterality Comments ESOPHAGOGASTRODUODENOSCOPY 02/24/11 PROCEDURE: RI ESOPHAGOGASTRODUODENOSCOPY TRANSORAL DIAGNOSTIC; COMMENT: normal SECTION PROCEDURE: [...] V28) 10/16/2010 DX:HOCM (hypertrophic obstru ctive cardiomyopathy) ([facility]) History of recurrent UTIs 09/30/2011 DX:His [...] Description 12/07/2024 1:00 PM EDT Office Visit [facility] [address] [address] Yuriy Hobbs MD [address] [address] Health Maintenance Due Date Last Done Comments [...] this topic Medical Devices Implanted Type Area Informatica Mdm Developer Device Identifier Shelf Expiration Date Model / Serial / Lot Monitor Cardiac Insert Lux Dx Ii+-07/29/2024 Implanted:07/12 by Roosevelt Valentin MD (Quantity not on file) Cardiac Loop Recorder N/A: Chest Wall [employer] MGMT [id number] 10/27/2025 M312 / [id number] / Monitor Cardiac Insert Lux Dx Ii+ - [id number] - [id number] Implanted:Qty: 1 on 07/29/2024 by Roosevelt Valentin MD at [facility] Cardiac Loop Recorder N/A: Chest Wall [employer] MGMT [id number] 10/27/2025 M312 / [id number] / Procedures Procedure Name Priority Date/Time Associated [...] has recurrent palpitations, presyncope and documented tachycardia Swedish Masseuse: Roosevelt Valentin MD Device implanted: [employer] Lux DX II model number M312 serial #[id number], R wave 0.18 mV Procedure detail: After obtaining written informed consent the patient was brought to prep and recovery at [facility]. She was prepped in usual sterile [...] CBC auto differential (07/18/2024 8:04 AM EDT) [facility] WBC 8.7 4.8 - 10.8 K/mcL LAB HEMETOLOGY METHOD 07/18/2024 8:41 AM [facility] RBC 4.30 3.80 - 4.80 M/mcL LAB HEMETOLOGY METHOD 07/18/2024 8:41 AM [facility] Hemoglobin 13.0 11.5 - 16.0 g/dL LAB HEMETOLOGY METHOD 07/18/2024 8:41 AM [facility] Hematocrit 39.3 35.0 - 47.0 % LAB HEMETOLOGY METHOD 07/18/2024 8:41 AM [facility] MCV 91.6 79.0 - 98.0 FL LAB HEMETOLOGY METHOD 07/18/2024 8:41 AM [facility] MCH 30.3 27.0 - 32.0 pcg LAB HEMETOLOGY METHOD 07/18/2024 8:41 AM [facility] MCHC 33.1 32.0 - 37.0 g/dL LAB HEMETOLOGY METHOD 07/18/2024 8:41 AM [facility] RDW 13.0 11.0 - 15.0 % LAB HEMETOLOGY METHOD 07/18/2024 8:41 AM [facility] Platelets 302 130 - 400 K/mcL LAB HEMETOLOGY METHOD 07/18/2024 8:41 AM [facility] MPV 9.8 7.0 - 11.0 FL LAB HEMETOLOGY METHOD 07/18/2024 8:41 AM [facility] NRBC 0.0 <1.0 % LAB HEMETOLOGY METHOD 07/18/2024 8:41 AM [facility] NRBC Absolute 0.00 <0.10 K/mcL LAB HEMETOLOGY METHOD 07/18/2024 8:41 AM [facility] Neutrophils Relative 62.3 % LAB HEMETOLOGY METHOD 07/18/2024 8:41 AM [facility] Lymphocytes Relative 26.3 % LAB HEMETOLOGY METHOD 07/18/2024 8:41 AM [facility] Monocytes Relative 7.0 % LAB HEMETOLOGY METHOD 07/18/2024 8:41 AM [facility] Eosinophils Relative 3.2 % LAB HEMETOLOGY METHOD 07/18/2024 8:41 AM [facility] Basophils Relative 0.5 % LAB HEMETOLOGY METHOD 07/18/2024 8:41 AM [facility] Immature Granulocytes Relative 0.7 % LAB HEMETOLOGY METHOD 07/18/2024 8:41 AM [facility] Neutrophils Absolute 5.41 1.50 - 7.00 K/mcL LAB HEMETOLOGY METHOD 07/18/2024 8:41 AM [facility] Lymphocytes Absolute 2.28 1.00 - 5.00 K/mcL LAB HEMETOLOGY METHOD 07/18/2024 8:41 AM [facility] Monocytes Absolute 0.61 0.20 - 1.00 K/mcL LAB HEMETOLOGY METHOD 07/18/2024 8:41 AM [facility] Eosinophils Absolute 0.28 0.00 - 0.50 K/mcL LAB HEMETOLOGY METHOD 07/18/2024 8:41 AM [facility] Basophils Absolute 0.04 0.00 - 0.20 K/mcL LAB HEMETOLOGY METHOD 07/18/2024 8:41 AM [facility] Immature Granulocytes Absolute 0.06(H) 0.00 - 0.03 K/mcL LAB HEMETOLOGY METHOD 07/18/2024 8:41 AM [facility] Blood Venous blood specimen / Unknown Venipuncture / Unknown 07/18/2024 8:04 AM EDT 07/18/2024 8:31 AM EDT Roosevelt Valentin MD LAB BLOOD ORDERABLES Final Res ult Performing Organization Address [facility]/ZIP Co de Phone Number [facility] [address] [place] [address], [place] [phone] * Prothrombin time with INR (07/18/2024 8:04 AM EDT) Pathologist [facility] Protime 12.3 10.6 - 13.9 sec LAB COAGULATION METHOD 07/18/2024 8:45 AM EDT [facility] INR 1.0 LAB COAGULATION METHOD 07/18/2024 8:45 AM EDT [facility] Blood Venous blood specimen / Unknown Venipuncture / Unknown 07/18/2024 8:04 AM EDT 07/18/2024 8:32 AM EDT us Roosevelt Valentin MD LAB BLOOD ORDERABLES Final Res ult Performing Organization Address [facility]/ZIP Co de Phone Number [facility] [address] [place] [address], [place] [phone] * (ABNORMAL) Basic metabolic panel (07/18/2024 8:04 AM EDT) Pathologist [facility] Sodium 136 133 - 145 mmol/L LAB CHEMISTRY METHOD 07/18/2024 9:06 AM EDT [facility] Potassium 4.1 3.5 - 5.5 mmol/L LAB CHEMISTRY METHOD 07/18/2024 9:06 AM EDT [facility] Chloride 106 96 - 110 mmol/L LAB CHEMISTRY METHOD 07/18/2024 9:06 AM EDT [facility] CO2 23 21 - 32 mmol/L LAB CHEMISTRY METHOD 07/18/2024 9:06 AM EDT [facility] Anion Gap 7 3 - 11 LAB CHEMISTRY METHOD 07/18/2024 9:06 AM [facility] Glucose 148(H) 70 - 100 mg/dL LAB CHEMISTRY METHOD 07/18/2024 9:06 AM [facility] BUN 14 5 - 25 mg/dL LAB CHEMISTRY METHOD 07/18/2024 9:06 AM [facility] Creatinine 0.66 0.50 - 1.10 mg/dL LAB CHEMISTRY METHOD 07/18/2024 9:06 AM [facility] eGFR 107 >=60 mL/min/1. 73m2 LAB CHEMISTRY METHOD 07/18/2024 9:06 AM [facility] Comment:Calculation based on the??Chronic Kidney Disease Epidemiology Collaboration (CKD-EPI) equation refit??without adjustment for race. BUN/Creatinine Ratio 21.2 LAB CHEMISTRY METHOD 07/18/2024 9:06 AM [facility] Calcium 9.3 8.5 - 10.5 mg/dL LAB CHEMISTRY METHOD 07/18/2024 9:06 AM [facility] Blood Venous blood specimen / Unknown Venipuncture / Unknown 07/18/2024 8:04 AM EDT 07/18/2024 8:31 AM EDT us Roosevelt Valentin MD LAB BLOOD ORDERABLES Final Res ult [facility] [address] [place] [address], [place] [phone] * (ABNORMAL) Lipid panel with reflex to direct LDL (05/03/2024 11:52 AM EST) Cholesterol 202(H) 0 - 200 mg/dL LAB CHEMISTRY METHOD 05/03/2024 12:48 PM EST [facility] Triglycerides 256(H) 0 - 150 mg/dL LAB CHEMISTRY METHOD 05/03/2024 12:48 PM EST [facility] HDL 44 >=40 mg/dL LAB CHEMISTRY METHOD 05/03/2024 12:48 PM EST [facility] LDL Calculated 107(H) 0 - 100 mg/dL LAB CHEMISTRY METHOD 05/03/2024 12:48 PM EST [facility] VLDL Cholesterol Will 51.2 mg/dL LAB CHEMISTRY METHOD 05/03/2024 12:48 PM EST [facility] Non HDL Chol. (LDL+VLDL) 158(H) <145 mg/dL LAB CHEMISTRY METHOD 05/03/2024 12:48 PM EST [facility] Chol/HDL Ratio 4.6(H) 0.0 - 4.4 LAB CHEMISTRY METHOD 05/03/2024 12:48 PM [facility] Blood Venous blood specimen / Unknown Venipuncture / Unknown 05/03/2024 11:52 AM EST 05/03/2024 12:08 PM EST us Lisa Webb MD LAB BLOOD ORDERABLES Final Re sult [facility] [address] [place] [address], [place] [phone] * (ABNORMAL) Hemoglobin A1c (05/03/2024 11:52 AM EST) Hemoglobin A1C 6.8(H) <6.5 % LAB CHEMISTRY METHOD 05/03/2024 3:14 PM EST [facility] Mean Bld Glu Estim. 148 mg/dL LAB CHEMISTRY METHOD 05/03/2024 3:14 PM EST [facility] Blood Venous blood specimen / Unknown Venipuncture / Unknown 05/03/2024 11:52 AM EST 05/03/2024 12:05 PM EST us Lisa Webb MD LAB BLOOD ORDERABLES Final Re sult [facility] [address] [place] [address], * HIV Screening (07/30/2022) HIV Screening Abstracted Historical Provider HEALTH MAINTENANCE Final Result * Hepatitis C Screening (07/30/2022) HM Hepatitis C Screening Abstracted us Historical Provider HEALTH MAINTENANCE Final Result * SUKHI SCREENING DIGITAL (07/08/2022 1:28 PM EDT) Anatomical Region Laterality Modality Mammography 07/07/2022 1:34 PM EDT Narrative 07/08/2022 1:28 PM EDT [facility] Diagnostic Imaging Department [address] [place] [address] Patient: ??SYLVIA MILLER ?/Age/Sex: 1975 - 46 - F Unit#: ??[id number] ? Location/Status: ??SPDIMAM/REG CLI ? Mnemonic/Ordering Site: ??DIGSC/SPMAM Ordering Physician: ??BALJIT GUSTAFSON Sukhi Screening Digital - 07/07/22 - 3223 INDICATION: SCREENING COMPARISON: [facility] mammograms dating back to ??05/21/2011 TECHNIQUE: CC and MLO views of the breasts were obtained, using full field digital mammography with 3D tomosynthesis views in the MLO projection. Computer aided detection with the [employer] 7.2-H was employed. FINDINGS: The breasts contain [...] date for the next mammogram. (G0202 / [id number]) , ??[id number] Dictating Physician: ??RAMOS MARTEL MD Electronically Signed by: ??RAMOS MARTEL MD Dic Date/Time: ??07/08/22 1323 Sign date/Time: ??07/08/22 1328 Procedure Note Ramos Martel MD - 05/15/2023 [facility] Diagnostic Imaging Department [address] [place] [address] Patient: SYLVIA MILLER/Age/Sex: 1975 - 46 - F Unit#: [id number] [facility] Mnemonic/Ordering Site: [facility] Ordering Physician: BALJIT GUSTAFSON Sukhi Screening Digital - 07/07/22 - 1353 INDICATION: SCREENING COMPARISON: [facility] mammograms dating back to 05/21/2011 TECHNIQUE: CC and MLO views of the breasts were obtained, using full field digital mammography with 3D tomosynthesis views in the MLO projection. Computer aided detection with the [employer] 7.2-H was employed. FINDINGS: The breasts contain [...] date for the next mammogram. G0202 / [id number]) , [id number] Dictating Physician: RAMOS MARTEL MD Electronically Signed [...] Self 1975 [address] [place] [address] MEDICAID - [place] Care Teams Supplier Quality Relationship Specialty Start Date End Date Lisa Webb MD [address] [place] [address] Dr Benoit, STACY [address] PCP - General Internal Medicine 07/29/24
--- OUTSIDE RECORDS SUMMARY | 2024-08-23 15:23 | XMS_ITS | Clinical Summary ---
Author Organization [facility] Address [address] [place] [address] Care Team Providers Care Primary Care Sales Representative Name Role Phone Baljit Castro PA-C Primary [...] 2 (two) times daily Please label in Afghan, include applicator for internal rectal use 30 [...] Followed by Cardiology, Ramírez Malik PA-C at [facility] Cardiac murmur 07/15/2021 Subaortic membrane ([facility]) 07/15/2021 Obesity, Class I, BMI 30-34.9 07/15/2021 Generalized abdominal pain 07/15/2021 Atypical chest pain 07/15/2021 Chronic low back pain 07/15/2021 Gastroesophageal reflux disease 07/15/2021 Hypertrophic obstructive cardiomyopathy(425.11) 07/15/2021 Overview (06/09/2022): Followed by Cardiology, Ramírez Malik PA-C at [facility]. Pain of foot 07/15/2021 Scoliosis of [...] 10/08/2023 Imm-Zoster, Recombinant (1 of 2) 11/05/2023 Aki-[id number] ( season) 2023 09/27/2020, 09/22/2020, 09/20/2020, Additional [...] RT PCR (07/30/2022 9:37 AM EDT) Pathologist [facility] HEPATITIS C ANTIBODY NON-REACT JULIO NON-REACT JULIO [facility] SIGNAL TO CUT-OFF 0.07 <1.00 [facility] Comment: HCV antibody was non-reactive. There is no laboratory evidence of HCV infection. In most cases, no further action is required. However, if recent HCV exposure is suspected, a test for HCV RNA (test code 98751) is suggested. For additional information please refer to http://education.[employer]er [employer] Online/faq/BQR04m2 (This link is being provided for informational/ educational purposes only.) Blood Blood / Unknown 07/30/2022 9 :37 AM EDT 07/30/2022 9:37 AM EDT us Baljit Castro PA-C LAB - BLOOD DRAW Edited Resu lt - Final [employer] [address] [place] [address], [facility] [address] [place] [phone] * HIV 1/2 AG & AB W/RFLX (4TH GEN) (07/30/2022 9:37 AM EDT) Pathologist [facility] HIV AG/AB, 4TH GEN NON-REAC TIVE NON-REAC TIVE CPM [facility] Comment: HIV-1 antigen and HIV-1/HIV-2 antibodies were [...] ?? For additional information please refer to http://Acorio.[employer]er [employer] Online/faq/YJG608 (This link is being provided for informational/ educational purposes only.) The performance of this assay has not been clinically validated in patients less than 2 years old. Blood Blood / Unknown 07/30/2022 9 :37 AM EDT 07/30/2022 9:37 AM EDT Baljit Castro PA-C LAB - BLOOD DRAW Final Resul t [employer] [address] [place] [address], C[facility] [address] [address] * (ABNORMAL) LIPID PANEL (07/30/2022 9:37 AM EDT) CHOLESTEROL, TOTAL 237(H) <200 mg/dL [facility] HDL CHOLESTEROL 68 > OR = 50 mg/dL [facility] TRIGLYCERIDES 141 <150 mg/dL [facility] LDL-CHOLESTEROL 142(H) 99 mg/dL (calc) [facility] Comment: Reference range: <100 Desirable range <100 mg/dL for primary prevention; ?? <70 mg/dL for patients with CHD or diabetic patients with > or = 2 CHD risk factors. LDL-C is now calculated using the Grant-Tara calculation, which is a validated novel method providing better accuracy than the Friedewald equation in the estimation of LDL-C. Grant DALE et al. KELSEY. 2013;310(19): 8289-4798 (http://education.[employer]/faq/QHL229) CHOL/HDLC RATIO 3.5 <5.0 (calc) [facility] NON-HDL CHOLESTEROL 169(H) <130 mg/dL (calc) [facility] Comment: For patients with diabetes plus 1 major ASCVD risk factor, treating to a non-HDL-C goal of <100 mg/dL (LDL-C of <70 mg/dL) is considered a therapeutic option. Blood Blood / Unknown 07/30/2022 9 :37 AM EDT 07/30/2022 9:37 AM EDT us Baljit Castro PA-C LAB - BLOOD DRAW Final Resul t [employer] [facility] [address] [address], [employer] [facility] [address] [place] [address] * (ABNORMAL) COMPREHENSIVE METABOLIC PANEL (07/30/2022 9:37 AM EDT) GLUCOSE 113(H) 65 - 99 mg/dL C[facility] Comment: ?Fasting reference interval For someone without known diabetes, a glucose value between 100 and 125 mg/dL is consistent with prediabetes and should be confirmed with a follow-up test. UREA NITROGEN (BUN) 15 7 - 25 mg/dL [facility] CREATININE (blood) 0.72 0.50 - 0.99 mg/dL [facility] [place] [employer] EGFR 103 > OR = 60 mL/min/1 .73m2 [facility] Comment: The eGFR is based on the CKD-EPI 2020 equation. To calculate the new eGFR from a previous Creatinine or Cystatin C result, go to https://www.kidney.org/professionals/ kdoqi/gfr%5Fcalculator BUN/CREATININE RATIO NOT APPLICABLE 6 - 22 CPM [facility] SODIUM 138 135 - 146 mmol/L [facility] POTASSIUM 4.7 3.5 - 5.3 mmol/L [facility] CHLORIDE 102 98 - 110 mmol/L [facility] CARBON DIOXIDE 27 20 - 32 mmol/L [facility] [place] [employer] CALCIUM 9.4 8.6 - 10.2 mg/dL [facility] PROTEIN, TOTAL 6.7 6.1 - 8.1 g/dL [facility] ALBUMIN 4.3 3.6 - 5.1 g/dL [facility] GLOBULIN 2.4 1.9 - 3.7 g/dL (calc) [facility] ALBUMIN/GLOBUL IN RATIO 1.8 1.0 - 2.5 (calc) [facility] BILIRUBIN, TOTAL 0.4 0.2 - 1.2 mg/dL [facility] ALKALINE PHOSPHATASE 72 31 - 125 U/L [facility] AST 17 10 - 35 U/L [facility] ALT 19 6 - 29 U/L [facility] Blood Blood / Unknown 07/30/2022 9 :37 AM EDT 07/30/2022 9:37 AM EDT us Baljit Castro PA-C LAB - BLOOD DRAW Edited Resu lt - Final [employer] [address] [address], [employer] [address] [phone] * REFERRAL FOR MAMMOGRAM (07/07/2022 3:00 AM EDT) 07/07/2022 3:00 AM EDT us Baljit Castro PA-C IMG RFL MAMMO Edited Resul t - Final from Last 3 Months or Most Recently Relevant to Health Maintenance Insurance [place] MED[place] D[facility] [address] [employer] Care Teams Primary Care Sales Representative Relationship Specialty Start Date End Date Baljit Castro PA-C [address] [place] [address] PCP - General 09/20/21
--- OUTSIDE RECORDS SUMMARY | 2024-08-23 15:23 | XMS_ITS | Data Portability ---
Author Organization [facility], [facility] Address [address] [place] [address] Care Team Providers Care Mandarin Tutor Name Role Phone UMBERTO MCMANUS Referring Provider UMBERTO MCMANUS Primary Care Provider Assessment Encounter Date Assessment Date Assessment LastModified by Organization Details LastModified Time 06/27/2024 06/27/2024 A: Improving ROM with mild posterior chain tightness. Noted functional quad weakness due to instability in L LE when desc stairs reciprocally P: Continue to progress L knee ROM, strength, gait and function to maria luz. Add leg press NV [email or web address] Not available 06/27/2024 12:51:48 07/04/2024 07/04/2024 A: increased tenderness in ITB and patellar mobs today. Noted functional eccentric quad weakness due to instability in L LE when desc stairs reciprocally. good maria luz to leg press today P: Continue to progress L knee ROM, strength, gait and function to maria luz. [email or web address] Not available 07/04/2024 15:13:27 07/06/2024 07/06/2024 A: increased tenderness in ITB and patellar mobs today. Noted functional eccentric quad weakness due to instability in L LE when desc stairs reciprocally. good maria luz to leg press today P: Continue to progress L knee ROM, strength, gait and function to maria luz. [email or web address] Not available 07/06/2024 15:47:56 07/12/2024 07/12/2024 A: Better tolerance to all ther ex performed today. TTP along posterior joint line of L LE. Descending stair mechanics slowly improving, tight end range flexion P: Continue to progress L knee ROM, strength, gait and function to maria luz. 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 An attempted repair was performed, however, given the significant compromise to the meniscus tissue, the sutures pulled out easily and the meniscus was nonviable and very unstable. Unfortunately, she has not been doing very well since surgery with continued knee pain and swelling. Physical Examination: Height and weight as noted in chart. Constitutional: Patient pleasant, well appearing and in NAD. Mental status: Patient is alert and oriented x 4. No short-term memory deficits. Psychiatric: Mood and affect are appropriate. Respiratory: Non-labored breathing. Musculoskeletal: On examination of the left knee, there is a moderate effusion with no erythema or ecchymosis. Range of motion from 0-125? ? ?. She has tenderness along the lateral joint line. Her knee is grossly stable ligamentously. Extensor mechanism intact. Procedure: Injection of Steroid and Anesthetic, Knee Joint All reasonable risks and benefits of injection were discussed. Risks include bleeding, infection, non-relief of symptoms, recurrence of symptoms, allergic reaction, scarring, fat atrophy, and hyperglycemia. After obtaining verbal consent, the left lateral knee was prepped in sterile fashion [...] is allowed. 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 An attempted repair was performed, however, given the significant compromise to the meniscus tissue, the sutures pulled out easily and the meniscus was nonviable and very unstable. Unfortunately, she has not been doing very well since surgery with continued knee pain and swelling. I do anticipate that she will get progressive lateral compartment osteoarthritis and eventually required knee replacement. I did recommend attempting a left knee cortisone injection today that she tolerated very well. I do want her to continue to use her cane. I recommend low-impact activity include stationary biking. Should her symptoms fail to improve over the next 2-3 months despite conservative measures, recommend she call back for another visit. I would recommend getting repeat weightbearing x-rays at that time and likely refer her to my arthroplasty colleagues. All questions and concerns addressed. [email or web address] Not available 07/19/2024 14:06:57 Plan of Treatment Reminders Order Date Submit Date Provider Last Modified By Organization Details Last Modified Time Details Appointments None record ed. Lab None record ed. Referral None record ed. Procedures None record ed. Surgeries None record ed. Imaging None record ed. Medication Orders None record ed. Patient TargetsNo targets recorded. Patient InstructionsNo instructions recorded. Reason for Referral None Reported. Problems Name Problem SNOMED Code Status Onset Date Resolution Date Notes Provider Name and Address Organization Details Recorded Time No complaint s 622097224 Active Status: 'I'; Not Available [facility] 4 09:23:50 Pain of right knee joint 195991969405 100 Active 2023 Daisy Coronado PA-C [address] [place] [address] [address], [place], [address] , [facility] 4 12:50:19 Carpal tunnel syndrome of right wrist 841458680299 108 Active 2019 Problem Code: G56.01; Problem Code Type: ICD-10; Status: 'A'; Not Available [facility] 4 11:59:07 Lateral epicondyl itis of left humerus 967367236440 100 Active 2019 Problem Code: M77.12; Problem Code Type: ICD-10; Status: 'A'; Not Available [facility] 4 11:59:07 Bilateral osteoarth ritis of knees 312662638765 107 Active 2023 jasmina talamantes [facility] 15:13:33 Problem Notes None recorded. Procedures Surgical History Date Name Laterality Status Provider Name and Address Organization Details Recorded Time 5 49018 Therapeutic Exercise (1:1) completed TIERRA CalvoT [address], [place], [address], [facility] 07/06/2024 15:48:28 5 18229: Hot or Cold Pack completed TIERRA CalvoT [address], [place], [address], [facility] 07/06/2024 15:47:56 5 32248: Manual therapy completed Alonso Charles DPT [address], [place], [address], [facility] 07/06/2024 15:48:23 5 17384: Therapeutic Activities (1:1) completed Daisy Henderson PTA [address], [place], [address], [facility] 07/01/2024 11:51:08 5 17757 Therapeutic Exercise (1:1) completed Daisy Henderson PTA [address], [place], [address], [facility] 07/01/2024 11:51:08 5 01048: Hot or Cold Pack completed Daisy Henderson PTA [address], [place], [address], [facility] 07/04/2024 15:13:55 5 77459: Manual therapy completed Daisy Henderson PTA [address], [place], [address], [facility] 07/01/2024 11:51:08 5 55363: Therapeutic Activities (1:1) cancelled Daisy Henderson, GOLD BLOWER [address], [place], [address], [facility] 06/29/2024 07:41:20 5 32715 Therapeutic Exercise (1:1) cancelled Daisy Henderson, GOLD [employer]OWER [address], [place], [address], [facility] 06/29/2024 07:41:20 5 74422: Manual therapy cancelled Daisy Henderson, GOLD BLOWER [address], [place], [address], [facility] 06/29/2024 07:41:20 5 70121: Therapeutic Activities (1:1) completed Daisy Henderson, LACEY [address], [place], [address], [facility] 06/27/2024 06:52:50 5 58586 Therapeutic Exercise (1:1) completed Daisy Henderson, GOLD BLOWER [address], [place], [address], [facility] 06/27/2024 06:48:48 5 99579: Manual therapy completed Daisy Santiago, G[employer]OWER [address], [place], [address], [facility] 06/27/2024 06:52:48 5 71466 Therapeutic Exercise (1:1) completed TIERRA CalvoT [address], [place], [address], [facility] 06/22/2024 15:03:00 5 23499: Manual therapy completed Alonso Charles DPT [address], [place], [address], [facility] 06/22/2024 15:03:00 5 98583 Therapeutic Exercise (1:1) completed Daisy Henderson G[employer]OWER [address], [place], [address], [facility] 06/15/2024 12:58:11 5 54108: Manual therapy completed Daisy Henderson PTA [address], [place], [address], [facility] 06/15/2024 12:58:11 5 68807 Therapeutic Exercise (1:1) completed Daisy Henderson PTA [address], [place], [address], [facility] 06/12/2024 14:33:41 5 64116: Manual therapy completed Daisy Henderson PTA [address], [place], [address], [facility] 06/12/2024 14:33:41 5 64670 Therapeutic Exercise (1:1) completed Daisy Henderson PTA [address], [place], [address], [facility] 06/08/2024 07:30:37 5 07385: Manual therapy completed Daisy Henderson PTA [address], [place], [address], [facility] 06/08/2024 07:30:37 5 90629 Therapeutic Exercise (1:1) completed Daisy Henderson PTA [address], [place], [address], [facility] 06/06/2024 09:33:55 5 68409: Manual therapy completed Daisy Henderson PTA [address], [place], [address], [facility] 06/06/2024 09:33:58 5 13752 Therapeutic Exercise (1:1) completed Alonso Charles DPT [address], [place], [address], [facility] 06/02/2024 17:52:04 5 48900: Low complexity PT Eval completed Alonso Charles DPT [address] [facility], [place], [address], [facility] 06/02/2024 17:52:09 4 Sports Knee 4&1 completed Bruce Morley MD [address] [facility], [place], [address], [facility] 03/29/2024 09:51:30 4 Euflexxa Knee Injection completed Andrey Guevara PA-C [address] [facility], [place], [address], [facility] 12/10/2023 12:39:22 4 Euflexxa Knee Injection completed Gita Valdez PA-C [address] [facility], [place], [address], [facility] 12/09/2023 12:49:38 4 Euflexxa Knee Injection completed Andrey Guevara PA-C [address], [place], [address], [facility] 12/02/2023 11:00:45 4 Knee Kenalog 40 2cc Injection, Bilateral completed Andrey Guevara PA-C [address], [place], [address], [facility] 07/09/2023 09:11:20 Imaging Results None recorded. Procedure Notes None recorded. Medical Equipment None Reported. Allergies Allergen ID Allergen Name Allergen Category Reaction Reaction Severity Criticality Documentation Date Start Date Code Code System Note Provider Name and Address Organization Details Recorded Time 176773 acetamino phen / oxycodone medicatio n hallucina tions Not available Not available 06/15/20232017 97167 3 RxNorm Not Available [facility] 16:24:31 204367 latex environme nt,medica tion Not available Not available Not available 06/15/20232018 10361 91 RxNorm Not Available [facility] 4 16:24:31 Medications Name Sig Start Date Stop [...] Available clonidine HCl 0.1 mg tablet TOME 1 TABLETA POR V A ORAL TODOS LOS D EN LA NOCHE active Not Available Not Available No t Available doxycycline hyclate 100 mg capsule TOME DILCIA C PSULA DOS VECES AL D A 12/08 completed Not Available Not Available Not Available atorvastati n 20 mg tablet TOME DILCIA TABLETA TODOS LOS D 12/08 completed Not Available Not Available Not Available trazodone 50 mg tablet TAKE ONE (1-2) TABLETS BY MOUTH AT BEDTIME, NEEDED active Not Available Not Available No t Available prazosin 1 mg capsule TOME SARAY C PSULAS POR V A ORAL TODOS LOS D AL ACOSTARSE active Not Available Not Available No t Available meloxicam 15 mg tablet TOME 1 TABLETA POR VIA ORAL TODOS LOS BERNSTEIN YAKOV LO INDICADO active Not Available Not Available No t Available FreeStyle Lancets 28 gauge CHECK SUGARS DOS VECES AL D A active Not Available Not Available No t Available ondansetron HCl 4 mg tablet TAKE 1 TABLET EVERY 6-8 HOURS BY ORAL ROUTE NEEDED, FOR NAUSEA. active Not Available Not Available No t [...] A ORAL TODOS LOS D EN LA STACY FRITZ active Not Available Not Available No t Available aspirin 325 mg tablet,miguel yed release TAKE 1 TABLET(S) EVERY DAY BY MOUTH BEGINNING THE DAY AFTER SURGERY. active Not Available Not Available No t Available cephalexin 500 mg capsule TOME DILCIA C PSULA SARAY VECES AL D A 12/08 completed Not Available Not Available Not Available sertraline 25 mg tablet TAKE 1 TABLET BY MOUTH DAILY TOGETHER WITH 150 MG TDD 175 MG active Not Available Not Available No [...] mg tablet,exte nded release 24 hr TOME DOS TABLETAS POR V A ORAL DOS VECES AL D A active Not Available Not Available No t Available sertraline 50 mg tablet TAKE 3 TABLETS BY MOUTH DAILY TOGETHER WITH 25 MG TDD 175 MG active Not Available Not Available No [...] A ORAL DOS VECES AL D A POR 5 D CON ALIMENTO active Not Available Not Available No t Available Ventolin HFA 90 mcg/actuati on aerosol inhaler INHALE DANDO DOS SOPLIDOS CUATRO VECES AL D A active Not Available Not Available No t Available oxycodone 5 mg tablet TAKE 1 TABLET(S) EVERY 4-6 HOURS BY ORAL ROUTE NEEDED FOR MODERATE TO SEVERE PAIN active Not Available Not Available No t [...] completed Not Available Not Available Not Available prucaloprid e 1 mg tablet TAKE 1 TABLET BY MOUTH ONCE DAILY active Not Available Not Available No t Available Vitals Date Recorded Body height Body mass index (BMI) Body weight Provider Name and Address Organization Details Last Updated DateTime 07/19/2024 157.48 cm 31.1 kg/m2 39891.7 g NITIN NEVES [place] [facility] 07/19/2024 13:14:07 Social History None recorded. Functional Status None recorded. Mental Status None recorded. Family History Nothing Reported. Medical History Condition Response Anxiety/Depression Y Heart Trouble Y Cholesterol Y Diabetes Y Arthritis Y Acid Reflux (GERD) Y Stroke Y Headaches Y Hypertension Y Gynecological HistoryNo gynecological history recorded. Obstetrics History GPAL:G 0 P 0 0 0 0 Past Encounters Encounter ID Performer Location Encounter Start Date Encounter Closed Date Diagnosis/Indication Diagnosis SNOMED-CT Code Diagnosis ICD10 Code Diagnosis Note [id number] [facility] [address] [place] [address] 07/09/2023 08:48:11 07/09/2023 10:57:11 Bilateral osteoarthritis of knees 1016506406 16318 M17.0 [id number] [facility] [address] [place] [address] 08/14/2023 15:29:40 08/14/2023 16:21:32 Bilateral osteoarthritis of knees 8238656742 24294 M17.0 [id number] Andrey Guevara PA-C [facility] [address] [place] [address] 12/03/2023 13:02:15 12/03/2023 13:18:26 Osteoarthritis of left knee joint 6101073640 99335 M17.12 [id number] Gita Valdez PA-C [facility] [address] [place] [address] 12/09/2023 12:00:30 01/01/2024 08:52:35 Osteoarthritis of left knee joint 8315095748 52562 M17.12 [id number] Andrey Guevara PA-C [facility] [address] [place] [address] 12/16/2023 12:32:43 12/16/2023 15:14:48 Osteoarthritis of left knee joint 8382822330 01939 M17.12 [id number] Daisy Coronado PA-C [place] [address] [place] [address] 03/08/2024 13:46:19 03/24/2024 13:42:20 Pain of right knee joint 2145580001 99883 M25.561 Tear of la teral meniscus of knee 091108006 S83.282A [id number] Bruce Morley MD [facility] [address] [place] [address] 03/29/2024 08:41:59 04/19/2024 14:57:06 Tear of lateral meniscus of knee 378687119 S83.272A [id number] Alonso Charles , DPT [facility] [address] [place] [address] 06/01/2024 11:28:47 06/01/2024 14:12:12 Tear of lateral meniscus of left knee joint 3905654557 7105 S83.282D [id number] Daisy Henderson PTA [facility] [address] [place] [address] 06/06/2024 08:39:43 06/06/2024 09:39:00 Tear of lateral meniscus of left knee joint 8006505362 7105 S83.282D [id number] Daisy Henderson, G[facility] [employer] [facility] [address] [place] [address] 06/10/2024 15:05:29 06/13/2024 06:44:44 Tear of lateral meniscus of left knee joint 7406134210 7105 S83.282D [id number] Daisy Henderson G[facility] [employer] [facility] [address] [place] [address] 06/13/2024 08:11:44 06/13/2024 10:21:36 Tear of lateral meniscus of left knee joint 2286615287 7105 S83.282D [id number] Daisy Page PA-C [facility] [address] [place] [address] 06/14/2024 13:00:58 06/30/2024 08:43:18 Postoperative visit 566858355 Z48.89 [id number] Daisy Henderson [employer] [employer] [facility] [address] [place] [address] 06/17/2024 13:01:28 06/17/2024 14:25:07 Tear of lateral meniscus of left knee joint 0951731065 7105 S83.282D [id number] Alonso Charles , DPT [facility] [address] [place] [address] 06/22/2024 12:56:48 06/22/2024 13:32:08 Tear of lateral meniscus of left knee joint 4100570784 7105 S83.282D [id number] Daisy Henderson [employer] [facility] [address] [place] [address] 06/27/2024 08:12:27 06/27/2024 09:08:15 Tear of lateral meniscus of left knee joint 9999085743 7105 S83.282D [id number] Daisy Henderson [employer] [facility] [address] [place] [address] 07/04/2024 08:04:29 07/04/2024 10:16:43 Tear of lateral meniscus of left knee joint 4913460705 7105 S83.282D [id number] [facility] [address] [place] [address] 07/06/2024 13:06:50 07/06/2024 14:20:04 Tear of lateral meniscus of left knee joint 2085186505 7105 S83.282D [id number] [facility] [address] [place] [address] 07/12/2024 15:05:53 07/12/2024 16:01:18 Tear of lateral meniscus of left knee joint 1986796805 7105 S83.282D [id number] MD [facility] [address] [place] [address] 07/19/2024 13:06:13 07/29/2024 09:21:30 Pain of left knee region 0103244810 48303 M25.562 Surgical follow-up 91331 4000 Z48.89 Health Concerns Section Related Observation LastModified by Organization Detai ls LastModified Time None Recorded Concern Status LastModified by Organization Details LastModified Time None Recorded Advance Directives Directive None Recorded Payers Encounter Date Sequence Insurance Name Policy Number Policy Carr Covered Member ID Carr Member ID Guarantor Name 06/27/2024 1 [place] Sylvia Miller [id number] Sylvia Miller 07/04/2024 1 [place] Sylvia Miller [id number] Sylvia Miller 07/06/2024 1 [place] Sylvia Miller [id number] Sylvia Miller 07/12/2024 1 [place] Sylvia Miller [id number] Sylvia Miller 07/19/2024 1 [place] Sylvia Miller [id number] Sylvia Miller Notes Date Note Type Note Provider Name and Address Organization Details Recorded Time 06/27/2024 text/html Pt reports 3/10 px in knee, having some difficulty with stairs. Amb with [place] Daisy Henderson, G[employer]OWER [address], [place], [address], [facility] 06/27/2024 12:52:21 07/04/2024 text/html Pt reports 5/10 px in knee; mostly soreness today. Having some difficulty with stairs. Daisy Henderson [employer] [address], [place], [address], [facility] 07/04/2024 15:14:22 07/06/2024 text/html increased swelling px along later pf joint Alonso Charles DPT [address], [place], [address], [facility] 07/06/2024 15:49:58 07/12/2024 text/html Pt reports being a little sore coming in today. Alonso Charles DPT [address], [place], [address], [facility] 07/12/2024 16:07:59 OBGyn Episode No OBEpisode recorded.
== END 2024-08-23 15:10 | disposition home or self-care (01) ==
LOC: HO.ENCR 14:11
PROVIDERS: PCP Internal Medicine; Visit Provider Nurse Practitioner Adult Health
DX: E11.9 Type 2 diabetes mellitus without complications (principal)

== ENCOUNTER → 2024-08-23 14:10 | Outpatient (BNVA) | payer MEDICAID, SELFPAY | PROVIDERS: PCP Internal Medicine; Visit Provider Nurse Practitioner Adult Health | DX: E11.9 Type 2 diabetes mellitus without complications (principal); E66.9 Obesity, unspecified; Z68.31 Body mass index [BMI] 31.0-31.9, adult; Z79.84 Long term (current) use of oral hypoglycemic drugs | CPT/HCPCS: 82947; 83036; 99212 ==

== ENCOUNTER 2025-01-09 13:19 | Outpatient (AMB) | payer MEDICAID, SELFPAY ==
--- NOTE | 2025-01-09 13:20 | A.OFFVIS_ITS ---
Vital Signs 01/09/25 13:26 Height 5 ft 2 in Weight 169 lb 12.095 oz BMI 31.0 Blood Pressure Location Lt brachial Position Sitting Intake Visit Reasons: 2 mo f/u r/s 11/09/24 Intake Note: Sylvia presents in the office as a 2 month follow up. CC: pains when she eats - constipation at times as well. 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 Pt seeking second opinion at [facility] - prev seen by [facility]. Prev w/up [facility]: Barium swallow: no reflux despite provocation. linx position good. egd 12/2023: food in stomach GES 12/2023: 80% retention at 4h. Today: reports main concern is abd pain and bloating after meals. Has reflux sensation. Also reports constipation - goes every 3-4 days. Has DM for which she is on metformin. No recent travel or major illness in the past year. Clonidine noted on med list but has been taking this >1 year. 06/24/24: Here for follow up. Reports limited effect with prucalopride so far. Up to 2 mg once daily dose. Pt also worried about her weight gain as she is sticking to gastroparesis small particle diet with limited fiber and fat and not able to adhere to a diet plan. Looking to discuss GLP 1 with her PCP but also requests a referral. 08/19/24: Here for follow up. Reports didnt have any response to increase in motegrity to 4mg/day. However then also proceeds to say it was never approved by the insurance so unclear if she actually took the 4 mg dose or if still on 2 mg /day. Also not taking miralax or bisacodyl. Reports no BM x 4 days now assoc with abd discomfort and nausea but no vomiting or PO intolerance. Passing gas. 01/09/25: Here for follow up. Reports good response to motegrity 2+2 but over time lost effect. Now has 1-2 BMs per week. BMs are small issac. Looking for an alternative. [facility] Surgical History (Updated 01/09/25 @ 13:27 by CARL Morse) History of esophagogastroduodenoscopy (EGD) Hx of knee surgery Hx of colonoscopy Family History (Updated 01/09/25 @ 13:27 by CARL Morse) Maternal Grandmother Breast cancer Lung cancer Family/Other Prostate cancer Review of Systems Const All systems reviewed & are unremarkable except as noted in HPI and below Physical Exam Exam Exam: No apparent distress Nonicteric Abdomen soft, nondistended Alert and oriented x3, normal gait Vital Signs: BMI result Body Mass Index 31.0 Assessment & Plan Assessment & Plan (1) Constipation: Code(s): K59.00 - Constipation, unspecified Category: Medical (2) Gastroparesis: Code(s): K31.84 - Gastroparesis Category: Medical (3) Obesity: Code(s): E66.9 - Obesity, unspecified Category: Medical Plan 1. GI sx driven by hypomotilty - has delayed gastric emptying as well as severe constipation. Etiology of gastroparesis not determined yet. Ddx incudes vagal injury from linx vs diabetic vs idiopathic. Motegrity did not work as effectively. Plan: - Stop motegrity - Start trulance 3 mg once daily - Hold miralax with trulance but if no BM in 3 days, resume miralax BID and dulcolax 10 mg at bedtime - can titrate to effect. Goal 3 BMs per week at least. - Small particle diet - Avoid fatty food - Stay upright for 60 mins post meals Follow up 6 weeks Medications: New plecanatide (Trulance) 3 mg PO DAILY 30 tabs 1RF psyllium husk 3 grams PO BID 679 grams 0RF Discontinued prucalopride Discontinued Reason: Doctor's Order 4 mg (2 x 2 mg) PO DAILY 90 days 180 tabs 1RF Patient Instructions: - We are stopping Motegrity - Start trulance once daily in morning - Take senna or miralalax if no BM in 2-3 days - Also add fiber supplementation Coding Level of Care Code Est Pt Level 4 (27376) Diagnoses Constipation K59.00 Gastroparesis K31.84 Obesity E66.9
[2025-01-09 13:26] VITALS: BMI 31.0
--- OUTSIDE RECORDS SUMMARY | 2025-01-09 14:47 | XMS_ITS | Clinical Summary ---
Author Organization [facility] Address [address] [place] [address] Care Team Providers Care Government Service Executive Name Role Phone Baljit Castro PA-C Primary Care Provider [phone] Source Comments PLEASE NOTE, if this patient [...] complication, without long-term current use of insulin ([facility]) Take 1 Tablet by mouth 2 (two) [...] 2 (two) times daily Please label in Chinese, include applicator for internal rectal use 30 [...] Followed by Cardiology, Ramírez Malik PA-C at [facility] Cardiac murmur 07/15/2021 Subaortic membrane ([facility]HS-HCC) 07/15/2021 Obesity, Class I, BMI 30-34.9 07/15/2021 Generalized abdominal pain 07/15/2021 Atypical chest pain 07/15/2021 Chronic low back pain 07/15/2021 Gastroesophageal reflux disease 07/15/2021 Hypertrophic obstructive cardiomyopathy(425.11) 07/15/2021 Overview (06/09/2022): Follow[facility] by Cardiology[facility] Ram[facility] Pain of foot 07/15/2021 Scoliosis of lumbar [...] 94 10/08/2022 1:40 PM EDT Temperature 37.3 C (99.2 F) 10/08/2022 1:40 PM EDT Respiratory Rate 16 10/08/2022 1:40 PM EDT Oxygen Saturation 97% 10/08/2022 1:40 PM EDT Inhaled Oxygen Concentration - - Weight 78 kg (172 lb) 10/08/2022 1:40 PM EDT Height 154.9 cm (5' 1 ) 10/08/2022 1:40 PM EDT Body Mass Index 32.5 10/08/2022 1:40 PM EDT Plan of Treatment Health Maintenance Due Date Last Done Comments Dental FMX/Pano 1973 HPV Screening 1973 Pap + HPV 1973 Tobacco Screening 1973 Imm-Hepatitis B (1 of 3 - 19 + 3-dose series) 1992 Cervical Cancer Screening [address] Colonography 2018 Colonoscopy 2018 Colorectal Cancer Screening 2018 FIT/gFOBT 2018 Fecal DNA 2018 Flexible Sigmoidoscopy 2018 Imm-Pneumococcal 50+ (2 of 2 - PCV) 01/11/2021 01/12/2020 Dental BW 02/16/2023 02/14/2022 Dental Examination 02/16/2023 02/14/2022 Dental Perio Charting 02/16/2023 02/14/2022 Dental Prophy 02/16/2023 02/14/2022 Anxiety Screening 06/09/2023 06/09/2022 Breast Cancer Screening (Mammogram) 07/08/2023 07/07/2022 Annual Wellness (Adult): Indicated (All Coverage) 07/31/2023 07/30/2022, 07/15/2021 Hypertension Screening (#1) 10/08/2023 Imm-Zoster, Recombinant (1 of 2) 11/05/2023 Alcohol and Drug Screen 04/13/2024 06/09/19 23, 01/14/2022, 03/06/2021 Depression Annual Screen 04/13/2024 06/09/2022 Imm-DTaP/Tdap/Td (2 - Td or Tdap) 10/10/2024 015 [id number]-12 ( season) 2024 09/27/2020, 09/22/2020, 09/20/2020, Additional history exists Imm-Influenza (#1) 2024 Lipid Screening 05/03/2025 05/03/2024, 04/12/2022, 04/23/2021 Diabetes [...] annual physical exam REFERRAL FOR MAMMOGRAM Routine 3 3:00 AM EDT Breast cancer screening [...] Recently Relevant to Health Maintenance Results * Hep C Ab w/Rflx (07/30/2022 9:37 AM EDT) Pathologist [facility] HEPATITIS C ANTIBODY NON-REACT JULIO NON-REACT JULIO [facility] SIGNAL TO CUT-OFF 0.07 <1.00 [facility] Comment: HCV antibody was non-reactive. There is no laboratory evidence of HCV infection. In most cases, no further action is required. However, if recent HCV exposure is suspected, a test for HCV RNA (test code 46501) is suggested. For additional information please refer to http://education.SweetSpot WiFi/faq/AKU14q9 (This link is being provided for informational/ educational purposes only.) Blood Blood / Unknown 07/30/2022 9 :37 AM EDT 07/30/2022 9:37 AM EDT us Baljit Castro PA-C LAB - BLOOD DRAW Edited Resu lt - Final [employer] [address] [place] [address], [facility] [address] [place] [address] * HIV Screen (07/30/2022 9:37 AM EDT) Pathologist [facility] HIV AG/AB, 4TH GEN NON-REAC TIVE NON-REAC TIVE [facility] Comment: HIV-1 antigen and HIV-1/HIV-2 antibodies were not detected. There is no laboratory evidence of HIV infection. PLEASE NOTE: This information has been disclosed to you from records whose confidentiality may be protected by state law. If your state requires such protection, then the state law prohibits you from making any further disclosure of the information without the specific written consent of the person to whom it pertains, or as otherwise permitted by law. A general authorization for the release of medical or other information is NOT sufficient for this purpose. For additional information please refer to http://Pikimal.SweetSpot WiFi/faq/ZOG427 (This link is being provided for informational/ educational purposes only.) The performance of this assay has not been clinically validated in patients less than 2 years old. Blood Blood / Unknown 07/30/2022 9 :37 AM EDT 07/30/2022 9:37 AM EDT Baljit Castro PA-C LAB - BLOOD DRAW Final Resul t [employer] [address] [address], [address] [address] * (ABNORMAL) Lipid panel (07/30/2022 9:37 AM EDT) CHOLESTEROL, TOTAL 237(H) <200 mg/dL [address] [facility] HDL CHOLESTEROL 68 > OR = 50 mg/dL [facility] TRIGLYCERIDES 141 <150 mg/dL [facility] LDL-CHOLESTEROL 142(H) 99 mg/dL (calc) [facility] Comment: Reference range: <100 Desirable range <100 mg/dL for primary prevention; <70 mg/dL for patients with CHD or diabetic patients with > or = 2 CHD risk factors. LDL-C is now calculated using the Grant-Tara calculation, which is a validated novel method providing better accuracy than the Friedewald equation in the estimation of LDL-C. Grant SS et al. KELSEY. 2013;310(19): 6565-0930 (http://Pikimal.Marley Spoon/faq/ITQ333) CHOL/HDLC RATIO 3.5 <5.0 (calc) [facility] NON-HDL CHOLESTEROL 169(H) <130 mg/dL (calc) [facility] Comment: For patients with diabetes plus 1 major ASCVD risk factor, treating to a non-HDL-C goal of <100 mg/dL (LDL-C of <70 mg/dL) is considered a therapeutic option. Blood Blood / Unknown 07/30/2022 9 :37 AM EDT 07/30/2022 9:37 AM EDT Baljit Castro PA-C LAB - BLOOD DRAW Final Resul t [employer] [facility] [address] [address], [address] [facility] [address] [place] [address] * (ABNORMAL) CMP (07/30/2022 9:37 AM EDT) GLUCOSE 113(H) 65 - 99 mg/dL [facility] Comment: Fasting reference interval For someone without known diabetes, a glucose value between 100 and 125 mg/dL is consistent with prediabetes and should be confirmed with a follow-up test. UREA NITROGEN (BUN) 15 7 - 25 mg/dL [address] [facility] CREATININE (blood) 0.72 0.50 - 0.99 mg/dL [facility] EGFR 103 > OR = 60 mL/min/1 .73m2 [facility] Comment: The eGFR is based on the CKD-EPI 2020 equation. To calculate the new eGFR from a previous Creatinine or Cystatin C result, go to https://www.kidney.org/professionals/ kdoqi/gfr%5Fcalculator BUN/CREATININE RATIO NOT APPLICABLE 6 - 22 [facility] SODIUM 138 135 - 146 mmol/L [facility] POTASSIUM 4.7 3.5 - 5.3 mmol/L [facility] CHLORIDE 102 98 - 110 mmol/L [facility] CARBON DIOXIDE 27 20 - 32 mmol/L [facility] CALCIUM 9.4 8.6 - 10.2 mg/dL [facility] PROTEIN, TOTAL 6.7 6.1 - 8.1 g/dL [facility] ALBUMIN 4.3 3.6 - 5.1 g/dL [facility] GLOBULIN 2.4 1.9 - 3.7 g/dL (calc) [facility] ALBUMIN/GLOBUL IN RATIO 1.8 1.0 - 2.5 (calc) [facility] BILIRUBIN, TOTAL 0.4 0.2 - 1.2 mg/dL [facility] ALKALINE PHOSPHATASE 72 31 - 125 U/L [facility] AST 17 10 - 35 U/L [facility] ALT 19 6 - 29 U/L [facility] Blood Blood / Unknown 07/30/2022 9 :37 AM EDT 07/30/2022 9:37 AM EDT Baljit Castro PA-C LAB - BLOOD DRAW Edited Resu lt - Final [facility] [address] [address], [employer] [address] [address] * REFERRAL FOR MAMMOGRAM SCREENING (07/07/2022 3:00 AM EDT) 07/07/2022 3:00 AM EDT us Baljit Castro PA-C IMG RFL MAMMO Edited Resul t - Final from Last 3 Months or Most Recently Relevant to Health Maintenance Insurance [place] [employer] [place] [address] [place] [address] ACO Care Teams Government Service Executive Relationship Specialty Start Date End Date Baljit Castro PA-C [address] [place] [address] PCP - General 09/20/21
== END 2025-01-09 14:11 | disposition home or self-care (01) ==
LOC: HO.HGI 13:19
PROVIDERS: PCP Internal Medicine; Visit Provider Internal Medicine
DX: K59.00 Constipation, unspecified (principal); K31.84 Gastroparesis; E66.9 Obesity, unspecified
CPT/HCPCS: 99214

== ENCOUNTER → 2025-01-09 13:19 | Outpatient (BNVA) | payer MEDICAID, SELFPAY | PROVIDERS: PCP Internal Medicine; Visit Provider Internal Medicine | DX: K31.84 Gastroparesis (principal); K59.00 Constipation, unspecified; E66.9 Obesity, unspecified | CPT/HCPCS: 99212 ==

== ENCOUNTER 2025-03-01 08:33 | Outpatient (AMB) | payer MEDICAID, SELFPAY ==
--- OUTSIDE RECORDS SUMMARY | 2025-03-01 08:05 | XMS_ITS | Encounter Summary ---
Author Organization [facility] Address [address] [place] [address] Care Team Providers Care Director Global Sales Name Role Phone Lisa Webb MD Primary Care Provider [phone] Encounter Details Date Type Department Care Team (Late Contact Info) Description 03/01/2025 8:05 AM EST Lab Draw Station - [address] [facility] [address] [place] [address] Diabetes mellitus (CMS/HCC V24, CMS/HCC V28); Mixed hyperlipidemia; Essential hypertension, malignant; Dizziness and giddiness Social History Tobacco Use Types Packs/Day Years [...] Orientation Straight 07/29/2024 8: 04 AM EDT documented as of this encounter Plan of Treatment Upcoming Encounters Date Type Department Care Team (Late Contact Info) Description 03/31/2025 11:10 AM EST Office Visit [facility] - [facility] [address] [facility] [address] [place] [address] Chirssy Cleveland, [employer]LE [employer] [address] [place] [address] [place] [address] documented as of this encounter Procedures Procedure Name Priority Date/Time Associated Diagnosis Comments MICROALBUMIN CREATININE URINE RATIO Routine 03/01/2025 8:16 AM EST Diabetes mellitus ([facility] V24, [facility] V28) Mixed hyperlipidemia Essential hypertension, malignant Dizziness and giddiness LIPID PANEL WITH REFLEX TO DIRECT LDL Routine 03/01/2025 8:06 AM EST Diabetes mellitus ([facility] V24, [facility] V28) Mixed hyperlipidemia Essential hypertension, malignant Dizziness and giddiness HEMOGLOBIN A1C Routine 03/01/2025 8:06 AM EST Diabetes mellitus ([facility] V24, [facility] V28) Mixed hyperlipidemia Essential hypertension, malignant Dizziness and giddiness COMPREHENSIVE METABOLIC PANEL Routine 03/01/2025 8:06 AM EST Diabetes mellitus ([facility] V24, [facility] V28) Mixed hyperlipidemia Essential hypertension, malignant Dizziness and giddiness documented in this encounter Results * Microalbumin creatinine urine ratio (03/01/2025 8:16 AM EST) Creatinine, Urine 115.0 mg/dL 03/01/2025 10:[address] [facility] Microalb, Ur 4.0 0.0 - 29.0 mg/L 03/01/2025 10:[address] [facility] Microalb/Creat Ratio 3 <30 mg/g creat 03/01/2025 10:[address] [facility] Urine Urine specimen obtained by clean catch procedure / Unknown Non-blood Collection / Unknown 03/01/2025 8:16 AM EST 03/01/2025 8:48 AM EST us Lisa Webb MD LAB URINE ORDERABLES Final Re sult [facility] [address] [place] [address], [place] [phone] * Lipid panel with reflex to direct LDL (03/01/2025 8:06 AM EST) Cholesterol 177 0 - 200 mg/dL 03/01/2025 9:41 AM [facility] Triglycerides 145 0 - 150 mg/dL 03/01/2025 9:41 AM [facility] HDL 48 >=40 mg/dL 03/01/2025 9:41 AM [facility] LDL Calculated 100 0 - 100 mg/dL 03/01/2025 9:41 AM [facility] Comment:Estimated LDL Calcul ated using equation: Total cholesterol - HDL cholesterol - (Triglycerides/5) VLDL Cholesterol Will 29 mg/dL 03/01/2025 9:41 AM [facility] Non HDL Chol. (LDL+VLDL) 129 <145 mg/dL 03/01/2025 9:41 AM [facility] Chol/HDL Ratio 3.7 0.0 - 4.4 03/01/2025 9:41 AM [facility] Blood Venous blood specimen / Unknown Venipuncture / Unknown 03/01/2025 8:06 AM EST 03/01/2025 8:49 AM EST us Lisa Webb MD LAB BLOOD ORDERABLES Final Re sult [facility] [address] [place] [address], * (ABNORMAL) Hemoglobin A1c (03/01/2025 8:06 AM EST) Pathologist [facility] Hemoglobin A1C 6.9(H) <6.5 % LAB CHEMISTRY METHOD 03/01/2025 10:43 AM [facility] Mean Bld Glu Estim. 151 mg/dL LAB CHEMISTRY METHOD 03/01/2025 10:43 AM [facility] Blood Venous blood specimen / Unknown Venipuncture / Unknown 03/01/2025 8:06 AM EST 03/01/2025 8:50 AM EST us Lisa Webb MD LAB BLOOD ORDERABLES Final Re sult [facility] [address] [place] [address], [place] [phone] * (ABNORMAL) Comprehensive metabolic panel (03/01/2025 8:06 AM EST) Sodium 142 133 - 145 mmol/L 03/01/2025 11:46 AM [facility] Potassium 4.4 3.5 - 5.5 mmol/L 03/01/2025 11:46 AM [facility] Chloride 104 96 - 110 mmol/L 03/01/2025 11:46 AM [facility] CO2 29 21 - 32 mmol/L 03/01/2025 11:46 AM [facility] Anion Gap 9 3 - 11 03/01/2025 11:46 AM [facility] Glucose 120(H) 70 - 100 mg/dL 03/01/2025 11:46 AM [facility] BUN 11 5 - 25 mg/dL 03/01/2025 11:46 AM [facility] Creatinine 0.63 0.50 - 1.10 mg/dL 03/01/2025 11:46 AM [facility] eGFR 108 >=60 mL/min/1. 73m2 03/01/2025 11:46 AM [facility] Comment:Calculation based on the Chronic Kidney Disease Epidemiology Collaboration (CKD-EPI) equation refit without adjustment for race. BUN/Creatinine Ratio 17.5 03/01/2025 11:46 AM [facility] Calcium 8.3(L) 8.5 - 10.5 mg/dL 03/01/2025 11:46 AM [facility] AST (SGOT) 27 10 - 42 unit/L 03/01/2025 11:46 AM [facility] ALT (SGPT) 21 10 - 60 unit/L 03/01/2025 11:46 AM [facility] Alkaline Phosphatase 111 42 - 121 unit/L 03/01/2025 11:46 AM [facility] Total Protein 6.8 6.0 - 8.0 g/dL 03/01/2025 11:46 AM [facility] Albumin 4.3 3.2 - 5.0 g/dL 03/01/2025 11:46 AM [facility] Total Bilirubin 0.3 0.0 - 1.4 mg/dL 03/01/2025 11:46 AM [facility] Blood Venous blood specimen / Unknown Venipuncture / Unknown 03/01/2025 8:06 AM EST 03/01/2025 8:49 AM EST us Lisa Webb MD LAB BLOOD ORDERABLES Final Re sult [facility] [address] [place] [address], documented in this encounter Visit Diagnoses Diagnosis Diabetes mellitus (CMS/HCC V24, CMS/HCC V28) Type II or unspecified type diabetes mellitus without mention of complication, not stated as uncontrolled Mixed hyperlipidemia Essential hypertension, malignant Dizziness and giddiness documented in this encounter Care Teams Director Global Sales Relationship Specialty Start Date End Date Lisa Webb MD [address] [place] [address] [place] [address] PCP - General Internal Medicine 07/29/24 documented as of this encounter
[2025-03-01 08:41] VITALS: BP 129/81; PULSE 82; BMI 30.6
--- NOTE | 2025-03-01 08:41 | MHC.OFFVIS ---
Vital Signs 03/01/25 08:41 Height 5 ft 2 in Weight 167 lb 8.821 oz BMI 30.6 BP 129/81 Blood Pressure Location Lt brachial Position Sitting Pulse 82 Intake Visit Reasons: 6w f/u [facility]IC Intake Note: Sylvia presents in the office as a 6 week follow up. CC: States she has pains when she eats - every day she has hearburns and she state the constipation has gotten better. Allergies acetaminophen (From Percocet) Allergy (Mild, Verified 03/01/25 08:44) Unknown latex Allergy (Mild, Verified 03/01/25 08:44) Unknown oxycodone (From Percocet) Allergy (Mild, Verified 03/01/25 08:44) Unknown HPI Comments Details: 48 y.o F with PMH of GERD s/p LINX who is coming in for management of gastroparesis. Seen with american sign language interpreter. [place] [facility] [place] [facility]. Prev w/up [facility]: Barium swallow: no reflux despite provocation. linx position good. egd 12/2023: food in stomach GES 12/2023: 80% retention at 4h. Today: reports main concern is abd pain and bloating after meals. Has reflux sensation. Also reports constipation - goes every 3-4 days. Has DM for which she is on metformin. No recent travel or major illness in the past year. Clonidine noted on med list but has been taking this >1 year. 06/24/24: Here for follow up. Reports limited effect with prucalopride so far. Up to 2 mg once daily dose. Pt also worried about her weight gain as she is sticking to gastroparesis small particle diet with limited fiber and fat and not able to adhere to a diet plan. Looking to discuss GLP 1 with her PCP but also requests a referral. 08/19/24: Here for follow up. Reports didnt have any response to increase in motegrity to 4mg/day. However then also proceeds to say it was never approved by the insurance so unclear if she actually took the 4 mg dose or if still on 2 mg /day. Also not taking miralax or bisacodyl. Reports no BM x 4 days now assoc with abd discomfort and nausea but no vomiting or PO intolerance. Passing gas. 01/09/25: Here for follow up. Reports good response to motegrity 2+2 but over time lost effect. Now has 1-2 BMs per week. BMs are small issac. Looking for an alternative. 03/01/25: Here for follow up. Constipation has resolved now. Takes Trulance daily which is effective. On questioning patient reports loose BMs with this but she actually prefers that over having hard/formed BM. Main cc today is persistent reflux despite a LINX device, primarily when supine. Burping is frequent post-prandial. Takes Omeprazole 40 mg daily. Also takes Kari-[place] for heartburn at night. [facility] records show barium swallow 11/2023 without reflux. She had a colonoscopy two years ago without polyps but no report available in system. Will have her sign a release form. --- Pt was informed and consented to the use of ambient scribe for this encounter. --- [facility] Surgical History History of esophagogastroduodenoscopy (EGD) Hx of knee surgery Hx of colonoscopy Family History Maternal Grandmother Breast cancer Lung cancer Family/Other Prostate cancer Review of Systems Const All systems reviewed & are unremarkable except as noted in HPI and below Physical Exam Exam Exam: No apparent distress Nonicteric Abdomen soft, nondistended Alert and oriented x3, normal gait Vital Signs: Last Vital Signs Pulse 82 03/01/25 08:41 BP 129/81 03/01/25 08:41 BMI result Body Mass Index 30.6 Assessment & Plan Assessment & Plan (1) GERD (gastroesophageal reflux disease): Code(s): K21.9 - Gastro-esophageal reflux disease without esophagitis Category: Medical (2) Bloating symptom: Code(s): R14.0 - Abdominal distension (gaseous) Category: Medical (3) Constipation: Code(s): K59.00 - Constipation, unspecified Category: Medical (4) Obesity: Code(s): E66.9 - Obesity, unspecified Category: Medical Plan 1. Chronic Gastroesophageal Reflux Disease (GERD) Reports persistent reflux symptoms with regurgitation and belching. This is despite a LINX procedure in 2016 and barium swallow was also normal in 2023. Plan: - Continue omeprazole 40 mg daily for now. - Avoid Kari-[place] as it contains full dose aspirin. Can take simethicone instead for bloating PRN. - Barium swallow examination to reassess reflux status and check for hiatal hernia. - Will also get previous colonoscopy and endoscopy reports from [facility]. Release of info signed by pt today. 2. Constipation Trulance effective for bowel regulation. No change in management. Med refilled today. --- Pt was informed and consented to the use of ambient scribe for this encounter. --- Follow up 3 months Orders: Orders [place] barium swallow Today K21.9 - Gastro-esophageal reflux disease without esophagitis Medications: New simethicone (Gas Relief (simethicone)) 180 mg PO BID PRN 90 caps 0RF abdominal bloating Refilled plecanatide (Trulance) 3 mg PO DAILY 90 tabs 1RF Coding Level of Care Code Est Pt Level 4 (23028) Diagnoses GERD (gastroesophageal reflux disease) K21.9 Bloating symptom R14.0 Constipation K59.00 Obesity E66.9
--- OUTSIDE RECORDS SUMMARY | 2025-03-01 16:18 | XMS_ITS | Data Portability ---
Author Organization [facility], [facility] Address [address] [place] [address] Care Team Providers Care Cook Ship Name Role Phone UMBERTO MCMANUS Referring Provider [...] to maria luz. Add leg press [place] [email or web address] Not available 06/27/2024 12:51:48 07/04/2024 07/04/2024 A: increased tenderness in ITB and patellar mobs today. Noted functional eccentric quad weakness due to instability in L LE when desc stairs reciprocally. good maria luz to leg press today P: Continue to progress L knee ROM, strength, gait and function to maria luz. Not available 07/04/2024 15:13:27 07/06/2024 07/06/2024 A: increased tenderness in ITB and patellar mobs today. Noted functional eccentric quad weakness due to instability in L LE when desc stairs reciprocally. good maria luz to leg press today P: Continue to progress L knee ROM, strength, gait and function to maria luz. Not available 07/06/2024 15:47:56 07/12/2024 07/12/2024 A: Better tolerance to all ther ex performed today. TTP along posterior joint line of L LE. Descending stair mechanics slowly improving, tight end range flexion P: Continue to progress L knee ROM, strength, gait and function to maria luz. Not available 07/12/2024 16:07:02 07/19/2024 07/19/2024 Reason [...] erythema or ecchymosis. Range of motion from 0-125 . She has tenderness along the lateral joint [...] injection of 1cc of Kenalog 40 and 4cc s of Lidocaine 1% was performed using [...] arthroplasty colleagues. All questions and concerns addressed. [email or web address] Not available 07/19/2024 14:06:57 Plan of Treatment [...] Organization Details Recorded Time No complaint s [id number] Active Status: 'I'; Not Available [facility] 4 09:23:50 Carpal tunnel syndrome of right wrist 171177071563 108 Active 2019 Problem Code: G56.01; Problem Code Type: ICD-10; Status: 'A'; Not Available [facility] 4 11:59:07 Left lateral elbow tendinopa thy 277894164830 100 Active 2019 Problem Code: M77.12; Problem Code Type: ICD-10; Status: 'A'; Not Available [facility] 4 11:59:07 Bilateral osteoarth ritis of knees 353481100812 107 Active 2023 jasmina painting [place] - [facility] 4 15:13:33 Pain of right knee joint 718435498931 100 Active 2023 Daisy Coronado PA-C [address], [place], [address] , [facility] 4 12:50:19 Problem Notes None recorded. Procedures Surgical History Date Name Laterality Status Provider Name and Address Organization Details Recorded Time 5 Sports Knee 4&1 completed Bruce Morley MD [address], [place], [address], [facility] 07/19/2024 14:07:34 5 81807 Therapeutic Exercise (1:1) cancelled Daisy Henderson MARKETING MGR [address], [place], [address], [facility] 07/14/2024 12:36:03 5 70331: Hot or Cold Pack cancelled Daisy Henderson MARKETING M[employer] [address], [place], [address], [facility] 07/14/2024 12:36:02 5 50107: Manual therapy cancelled Daisy Henderson MARKETING MGR [address], [place], [address], [facility] 07/14/2024 12:36:03 5 01862 Therapeutic Exercise (1:1) completed TIERRA CalvoT [address], [place], [address], [facility] 07/12/2024 16:05:08 5 01997: Hot or Cold Pack completed Alonso Charles, DPT [address], [place], [address], [facility] 07/12/2024 16:05:08 5 08726: Manual therapy completed Alonso Charles, DPT [address], [place], [address], [facility] 07/12/2024 16:05:08 5 87267 Therapeutic Exercise (1:1) completed Alonso Charles, DPT [address], [place], [address], [facility] 07/06/2024 15:48:28 5 55783: Hot or Cold Pack completed Alonso Charles, DPT [address], [place], [address], [facility] 07/06/2024 15:47:56 5 81858: Manual therapy completed Alonso Charles DPT [address], [place], [address], [facility] 07/06/2024 15:48:23 5 92446: Therapeutic Activities (1:1) completed Daisy Henderson PTA [address], [place], [address], [facility] 07/01/2024 11:51:08 5 92837 Therapeutic Exercise (1:1) completed Daisy Henderson PTA [address], [place], [address], [facility] 07/01/2024 11:51:08 5 48567: Hot or Cold Pack completed Daisy Henderson PTA [address], [place], [address], [facility] 07/04/2024 15:13:55 5 20607: Manual therapy completed Daisy Henderson PTA [address], [place], [address], [facility] 07/01/2024 11:51:08 5 86503: Therapeutic Activities (1:1) cancelled Daisy Henderson PTA [address], [place], [address], [facility] 06/29/2024 07:41:20 5 66179 Therapeutic Exercise (1:1) cancelled Daisy Henderson PTA [address], [place], [address], [facility] 06/29/2024 07:41:20 5 94829: Manual therapy cancelled Daisy Henderson PTA [address], [place], [address], [facility] 06/29/2024 07:41:20 5 57786: Therapeutic Activities (1:1) completed Daisy Henderson PTA [address], [place], [address], [facility] 06/27/2024 06:52:50 5 44398 Therapeutic Exercise (1:1) completed Daisy Henderson PTA [address], [place], [address], [facility] 06/27/2024 06:48:48 5 01341: Manual therapy completed Daisy Henderson PTA [address], [place], [address], [facility] 06/27/2024 06:52:48 5 99181 Therapeutic Exercise (1:1) completed Alonso Charles DPT [address], [place], [address], [facility] 06/22/2024 15:03:00 5 20187: Manual therapy completed Alonso Charles DPT [address], [place], [address], [facility] 06/22/2024 15:03:00 5 09791 Therapeutic Exercise (1:1) completed Daisy Henderson PTA [address], [place], [address], [facility] 06/15/2024 12:58:11 5 78715: Manual therapy completed Daisy Henderson PTA [address], [place], [address], [facility] 06/15/2024 12:58:11 5 85745 Therapeutic Exercise (1:1) completed Daisy Henderson PTA [address], [place], [address], [facility] 06/12/2024 14:33:41 5 26670: Manual therapy completed Daisy Henderson PTA [address], [place], [address], [facility] 06/12/2024 14:33:41 5 96362 Therapeutic Exercise (1:1) completed Daisy Henderson PTA [address], [place], [address], [facility] 06/08/2024 07:30:37 5 33744: Manual therapy completed Daisy Henderson PTA [address], [place], [address], [facility] 06/08/2024 07:30:37 5 50854 Therapeutic Exercise (1:1) completed Daisy Henderson PTA [address], [place], [address], [facility] 06/06/2024 09:33:55 5 89135: Manual therapy completed Daisy Henderson PTA [address], [place], [address], [facility] 06/06/2024 09:33:58 5 26277 Therapeutic Exercise (1:1) completed TIERRA CalvoT [address], [place], [address], [facility] 06/02/2024 17:52:04 5 72128: Low complexity PT Eval completed Alonso Charles DPT [address], [place], [address], [facility] 06/02/2024 17:52:09 4 Sports Knee 4&1 completed Bruce Morley MD [address], [place], [address], [facility] 03/29/2024 09:51:30 4 Euflexxa Knee Injection completed Andrey Guevara PA-C [address], [place], [address], [facility] 12/10/2023 12:39:22 4 Euflexxa Knee Injection completed Gita Valdez PA-C [address], [place], [address], [facility] 12/09/2023 12:49:38 4 Euflexxa Knee Injection completed Andrey Guevara PA-C [address], [place], [address], [facility] 12/02/2023 11:00:45 4 Knee Kenalog 40 2cc Injection, Bilateral completed Andrey Guevara PA-C [address], [place], [address], [facility] 07/09/2023 09:11:20 Imaging Results None recorded. Procedure Notes None recorded. Medical Equipment None Reported. Allergies Allergen ID Allergen Name Allergen Category Reaction Reaction Severity Criticality Documentation Date Start Date Code Code System Note Provider Name and Address Organization Details Recorded Time 056137 acetamino phen / oxycodone medicatio n hallucina tions Not available Not available 06/15/20232017 00191 3 RxNorm Not Available [facility] 4 16:24:31 659510 latex environme nt,medica tion Not available Not available Not available 06/15/20232018 56365 91 RxNorm Not Available [facility] 4 16:24:31 Medications Name Sig Start Date [...] ORAL TODOS LOS BERNSTEIN YAKOV LO INDICADO 2024 active Not Available Not Available Not Avai [...] Updated DateTime 07/19/2024 157.48 cm 31.1 kg/m2 87668.7 g NITIN NEVES [place] - [facility] 07/19/2024 13:14:07 Social History None recorded. [...] Diagnosis SNOMED-CT Code Diagnosis ICD10 Code Diagnosis IMO Codes Diagnosis Note [id number] ECTOR Bhardwaj [address] [place] [address] 07/09/2023 08:48:11 07/09/2023 10:57:11 Bilateral osteoarthritis of knees 2699538890 14757 M17.0 [id number] ECTOR Bhardwaj [address] [place] [address] 08/14/2023 15:29:40 08/14/2023 16:21:32 Bilateral osteoarthritis of knees 5390999529 30763 M17.0 [id number] ECTOR Bhardwaj [address] [place] [address] 12/03/2023 13:02:15 12/03/2023 13:18:26 Osteoarthritis of left knee joint 3166940293 74185 M17.12 [id number] Gita Valdez PA-C [facility] [address] [place] [address] 12/09/2023 12:00:30 01/01/2024 08:52:35 Osteoarthritis of left knee joint 9306356353 81586 M17.12 [id number] Andrey Guevara PA-C [facility] [address] [place] [address] 12/16/2023 12:32:43 12/16/2023 15:14:48 Osteoarthritis of left knee joint 5569144974 52328 M17.12 [id number] Daisy Coronado PA-C [facility] [address] [place] [address] 03/08/2024 13:46:19 03/24/2024 13:42:20 Pain of right knee joint 8607942995 77317 M25.561 020311 Tear of la teral meniscus of knee 594061619 S83.282A 106554 [id number] Bruce Morley MD [facility] [address] [place] [address] 03/29/2024 08:41:59 04/19/2024 14:57:06 Tear of lateral meniscus of knee 984288351 S83.272A [id number] [id number] Alonso Charles , DPT [facility] [address] [place] [address] 06/01/2024 11:28:47 06/01/2024 14:12:12 Tear of lateral meniscus of left knee joint 5899735843 7105 S83.282D 22256775 [id number] Daisy Henderson MARKETING MGR [facility] [address] [place] [address] 06/06/2024 08:39:43 06/06/2024 09:39:00 Tear of lateral meniscus of left knee joint 4213289088 7105 S83.282D 55773568 [id number] Daisy Henderson MARKETING MGR [facility] [address] [place] [address] 06/10/2024 15:05:29 06/13/2024 06:44:44 Tear of lateral meniscus of left knee joint 2130187618 7105 S83.282D [id number] Daisy Henderson, MARKETING MGR [facility] [address] [place] [address] 06/13/2024 08:11:44 06/13/2024 10:21:36 Tear of lateral meniscus of left knee joint 0300818278 7105 S83.282D [id number] [id number] Daisy Page PA-C [facility] [address] [place] [address] 06/14/2024 13:00:58 06/30/2024 08:43:18 Postoperative visit 037823509 Z48.89 [id number] Daisy Henderson MARKETING MGR [facility] [address] [place] [address] 06/17/2024 13:01:28 06/17/2024 14:25:07 Tear of lateral meniscus of left knee joint 2360342917 7105 S83.282D [id number] Alonso Charles , DPT [facility] [address] [place] [address] 06/22/2024 12:56:48 06/22/2024 13:32:08 Tear of lateral meniscus of left knee joint 4280429055 7105 S83.282D [id number] Daisy Henderson MARKETING MGR [facility] [address] [place] [address] 06/27/2024 08:12:27 06/27/2024 09:08:15 Tear of lateral meniscus of left knee joint 0452810623 7105 S83.282D [id number] Daisy Henderson MARKETING MGR [facility] [address] [place] [address] 07/04/2024 08:04:29 07/04/2024 10:16:43 Tear of lateral meniscus of left knee joint 7057361370 7105 S83.282D [id number] Alonso Charles , TIERRAT [facility] [address] [place] [address] 07/06/2024 13:06:50 07/06/2024 14:20:04 Tear of lateral meniscus of left knee joint 9106307676 7105 S83.282D [id number] Alonso Charles DPT [facility] [address] [place] [address] 07/12/2024 15:05:53 07/12/2024 16:01:18 Tear of lateral meniscus of left knee joint 1231542461 7105 S83.282D [id number] MD [facility] [address] [place] [address] 07/19/2024 13:06:13 07/29/2024 09:21:30 Pain of left knee region 8448244184 61138 M25.562 [id number] Surgical follow-up 95575 4000 Z48.89 [id number] Health Concerns Section Related Observation LastModified by Organization Detai ls LastModified Time None Recorded Concern Status LastModified by Organization Details LastModified Time None Recorded Advance Directives Directive None Recorded Payers Insurance Date Sequence Insurance Name Policy Number Policy Carr Covered Member ID Carr Member ID Guarantor Name 07/12/2024 1 [place] [facility] Sylvia Miller [id number] Sylvia Miller 03/29/2024 1 [place] [facility] Sylvia Miller [id number] Sylvia Miller Notes Date Note Type Note Provider Name and Address Organization Details Recorded Time 06/27/2024 text/html Pt reports 3/10 px in knee, having some difficulty with stairs. Amb with [place] Daisy Henderson PTA [address], [place], [address], [place] - [facility] 06/27/2024 12:52:21 07/04/2024 text/html Pt reports 5/10 px in knee; mostly soreness today. Having some difficulty with stairs. Daisy Henderson PTA [address], [place], [address], [facility] 07/04/2024 15:14:22 07/06/2024 text/html increased swelling px along later pf joint Alonso Charles DPT [address], [place], [address], [facility] 07/06/2024 15:49:58 07/12/2024 text/html Pt reports being a little sore coming in today. Alonso Charles DPT [address], [place], [address], [facility] 07/12/2024 16:07:59 OBGyn Episode No OBEpisode recorded.
--- OUTSIDE RECORDS SUMMARY | 2025-03-01 16:18 | XMS_ITS | Clinical Summary ---
Author Organization [address] [place] [address] Address [address] [place] [address] Phone Care Team Providers Care Trade Mark Examiner Name Role Phone Lisa Webb MD Primary Care Provider [phone] Allergies Active Allergy Reactions Criticality Noted Date Comments Latex Rash High 03/06/2021 Lisinopril Cough 08/20/2020 Increased cough w/increased dose (20mg) Oxycodone-Acetaminophen Hallucinations Medium 01/29/20 13 Medications albuterol HFA (PROAIR HFA ; PROVENTIL HFA ; VENTOLIN HFA) 90 mcg/actuation inhaler Inhale into the lungs. 03/11/2021 Active atorvastatin (LIPITOR) 20 mg tablet TOME DILCIA TABLETA DO LOS D 10/05/2021 Active citalopram (CeleXA) 10 mg tablet Take 1 Tab by mouth daily. 04/18/2020 Active hydroCHLOROthia zide 12.5 mg tablet TOME DILCIA TABLETA DOS LOS BERNSTEIN 12/19/2020 Active metFORMIN XR (GLUCOPHAGE-XR) 750 mg 24 hr tablet Take 500 mg by mouth daily (with breakfast). Active omeprazole (PriLOSEC) [address] capsule TOME DILCIA CAP[place]A BERNSTEIN 11/25/2022 Active sertraline (ZOLOFT) 100 mg tablet Take 1.5 Tabs by mouth daily. Active zolpidem (AMBIEN) 10 mg tablet Take 10 mg by mouth at bedtime. 01/10/2021 Active losartan (COZAAR) 100 mg tablet Take 1 tablet (100 mg total) by mouth 1 (one) time each day. 01/01/2025 Active metoclopramide (REGLAN) 5 mg tablet Take 1 tablet (5 mg total) by mouth 3 (three) times a day before meals. 11/16/2024 Active Trulance 3 mg tablet Take 1 tablet (3 mg total) by mouth 1 (one) time each day. 01/10/2025 Active dronedarone (MULTAQ) 400 mg tablet Take 1 tablet (400 mg total) by mouth 2 (two) times a day with meals. 180 each 3 01/20/2025 Active metoprolol succinate (Toprol XL) 100 mg 24 hr tablet Take 1 tablet (100 mg total) by mouth 1 (one) time each day. Do not crush or chew. 02/07/2025 Active Active Problems Problem Noted Date Diagnosed Date Tachycardia 12/07/2024 Inappropriate sinus tachycardia (CMS/HCC V24) Assessment & [...] home sleep study completed in 2016 that noted severe snoring but did not [...] CT. I have also shown her the Adapx mobile deep which she seems interested in getting. All of this was done with the aid of an receivable manager over the Internet. We will have her back in 2 months to see Norris . PSVT (paroxysmal supraventri cular tachycardia) ([facility] V24) 05/10/2020 Assessment & Plan (05/19/2024 4:10 PM EST): As above. Mild reactive airways disease 09/14/2015 Type 2 diabetes mellitus wit hout complication, without long-term current use of insulin ([facility] V24, [facility] V28) 10/10/2014 Absolute anemia 09/08/2014 Subaortic membrane 04/18/2014 Hyperglycemia 12/03/2013 Overview (04/01/2024): Nonfasting glucose 10/11/13 - 183, noted by network technical analyst. A1cs <6.5, fasting glucose 90-100s Insomnia 06/03/2012 [...] Encounters Date Type Department Care Team Description 03/01/2025 8:05 AM EST Lab Draw Station - [facility] [place] [address] Diabetes mellitus (CMS/HCC V24, CMS/HCC V28); Mixed hyperlipidemia; Essential hypertension, malignant; Dizziness and giddiness 02/21/2025 12:45 PM EST Ancillary Procedure [facility] Cardiology [facility] [address] [place] [address] 02/21/2025 Telephone [facility] Cardiology [facility] - [address] [place] [address] Serenity Dolan PA 02/18/2025 2:15 AM EST Ancillary Procedure [facility] Cardiology [facility] - [address] [place] [address] 02/07/2025 11:10 AM EDT Office Visit [facility] - [address] [place] [address] Chrissy Cleveland, OREN SVT (supraventricular tachycardia) ([facility] V24) (Primary Dx) 01/26/2025 10:55 AM EDT Ancillary Procedure [facility] Cardiology [facility] - [address] [place] [address] 01/20/2025 1:00 PM EDT - 01/20/2025 3:00 PM EDT Surgery [facility] [address] [place] [id number] Roosevelt Valentin MD EP study complete [98396 (CPT )] 01/20/2025 11:32 AM EDT - 01/20/2025 5:15 PM EDT Hospital Encounter [facility] [address] [place] [address] Roosevelt Valentin MD SVT (supraventricular tachycardia) ([facility] V24) (Primary Dx); Tachycardia Discharge Disposition: Home or Self Care 01/17/2025 8:25 PM EDT Ancillary Procedure [facility] Cardiology [facility] - [address] [place] [address] 01/17/2025 2:20 PM EDT Ancillary Procedure [facility] - [address] [place] [address] 01/09/2025 Results Follow-Up [facility] - [address] [place] [address] Serenity Dolan PA 12/07/2024 5:55 PM EDT Ancillary Procedure [facility] - [address] [place] [address] 12/07/2024 1:00 PM EDT Office Visit [facility] - [address] [place] [address] Yuriy Hobbs MD Heart palpitations (Primary Dx); LBBB (left bundle branch block) 12/07/2024 Telephone [facility] - [address] [place] [address] Roosevelt Valentin MD from Last 3 Months Immunizations Immunization Administration Dates Next Due Pfizer SARS-CoV-2 COVID-19, mRNA, LNP-S, preservative free 09/20/2020,08/30/2020 Tdap Tetanus diptheria acell ular pertussis (Boostrix; Adacel) 7yo and older 10/10/2014 Surgical History Surgery Date Site/Laterality Comments ESOPHAGOGASTRODUODENOSCOPY 02/24/11 PROCEDURE: [place] ESOPHAGOGASTRODUODENOSCOPY TRANSORAL DIAGNOSTIC; COMMENT: normal SECTION PROCEDURE: HISTORICAL DELIVERY; COMMENT: one TUBAL LIGATION 2011 PROCEDURE: HISTORICAL TUBAL LIGATION CARDIAC SURGERY 04/14/2014 PROCEDURE: HISTORICAL HEART SURGERY(ASD,VSD,VALVES); COMMENT: resection of subaortic membrane, left ventricular myotomy and myectomy HYSTERECTOMY 2014 PROCEDURE: HISTORICAL HYSTERECTOMY; COMMENT: Dr. Garcia, pelvi pain, endometrios, removed uterus/cervix Medical History Medical History Date Comments Heart palpitations DX:Heart palp itations Constipation DX:Constipation GERD (gastroesophageal reflux disease) DX:GERD (gastroesophageal reflux disease) HOCM (hypertrophic obstructi ve cardiomyopathy) ([facility] V24, [facility] V28) 10/16/2010 DX:HOCM (hypertrophic obstru ctive cardiomyopathy) ([facility]) History of recurrent UTIs 09/30/2011 DX:His tory [...] Not Answered Alcohol Use Standard Drinks/Week Comments No 0 [...] Sign Reading Time Taken Comments Blood Pressure 122/66 02/07/2025 10:35 AM EDT Pulse 83 02/07/2025 10:35 AM EDT Temperature 36.5 C (97.7 F) 01/20/2025 2:08 PM EDT Respiratory Rate 13 01/20/2025 3:50 PM EDT Oxygen Saturation 98% 02/07/2025 10: 35 AM EDT Inhaled Oxygen Concentration - - Weight 77.8 kg (171 lb 9.6 oz) 02/07/2025 10:35 AM EDT with winter boots on Height 157.5 cm (5' 2 ) 02/07/2025 10:3 5 AM EDT Body Mass Index 31.39 02/07/2025 10:35 AM EDT Plan of Treatment Upcoming Encounters Date Type Department Care Team (Late st Contact Info) Description 03/31/2025 11:10 AM EST Office Visit [facility] [address] [facility] [address] [place] [address] Chrissy Cleveland, FIG WASHER [address] [place] [address] [place] [address] Health Maintenance Due Date Last Done Comments Colorectal Cancer Screening: Colonoscopy 1973 Diabetes: Annual Foot Exam 11/05/1983 Diabetes: Annual Retina Eye Exam 11/05/1983 Hepatitis B Vaccines (1 of 3 - 19+ 3-dose series) 1992 Cervical Cancer Screening: Pap Smear 02/19/2020 02/18/2017 Pneumococcal Vaccine: 50+ Years (2 of 2 - PCV) 01/11/2021 01/12/2020 Social Influencers of Health Screening 03/16/2022 Zoster Vaccines (1 of 2) 11/05/2023 Depression Screening 04/13/2024 Breast Cancer Screening 07/08/2024 07/09/19, 07/05/2021, 03/05/2020, Additional history exists DTaP,Tdap,and Td Vaccines (2 - Td or Tdap) 10/10/2024 10/10/2014 COVID-19 Vaccine ( season) 2024 09/27/2020, 09/22/2020, 09/20/2020, Additional history exists Influenza Vaccine (#1) 2024 Diabetes: Blood Sugar Control Test (HGBA1C) 08/29/2025 03/01/2025, 11/23/2024, 05/03/2024, Additional history exists Diabetes: Annual Urine Albumin-Creatinine Ratio (uACR) 03/01/2026 03/01/2025 Diabetes: Annual GFR (Glomerular Filtration Rate) 03/01/2026 03/01/2025, 01/09/2025, 11/23/2024, Additional history exists Hypertension/CHF/CAD Annual BMP Blood Test 03/01/2026 03/01/2025, 01/09/2025, 11/23/2024, Additional history exists Cholesterol Screening (Lipid Panel) 03/01/2030 03/01/2025, 11/23/2024, 05/03/2024, Additional history exists RSV Immunization Adult Patients (1 - 1-dose 75+ series) 2048 HIV Screening Completed 07/30/2022 Hepatitis C Screening [...] this topic Medical Devices Implanted Type Area Studio Coordinator Device Identifier Shelf Expiration Date Model / Serial / Lot Monitor Cardiac Insert Lux Dx Ii+-07/29/2024 Implanted:07/12 by Roosevelt Valentin MD (Quantity not on file) Cardiac Loop Recorder N/A: Chest Wall [employer] [id number] 10/27/2025 M312 / [id number] / Monitor Cardiac Insert Lux Dx Ii+ - [id number] - [id number] Implanted:Qty: 1 on 07/29/2024 by Roosevelt Valentin MD at [facility] Cardiac Loop Recorder N/A: Chest Wall [employer] MG[employer] [id number] 10/27/2025 M312 / [id number] / Procedures Procedure Name Priority Date/Time Associated Diagnosis Comments MICROALBUMIN CREATININE URINE RATIO Routine 03/01/2025 8:16 AM EST Diabetes mellitus (CMS/HCC V24, CMS/[facility] V28) Mixed hyperlipidemia Essential hypertension, malignant Dizziness and giddiness LIPID PANEL WITH REFLEX TO DIRECT LDL Routine 03/01/2025 8:06 AM EST Diabetes mellitus (CMS/HCC V24, CMS/HCC V28) Mixed hyperlipidemia Essential hypertension, malignant Dizziness and giddiness HEMOGLOBIN A1C Routine 03/01/2025 8:06 AM EST Diabetes mellitus (CMS/HCC V24, CMS/HCC V28) Mixed hyperlipidemia Essential hypertension, malignant Dizziness and giddiness COMPREHENSIVE METABOLIC PANEL Routine 03/01/2025 8:06 AM EST Diabetes mellitus (CMS/HCC V24, CMS/HCC V28) Mixed hyperlipidemia Essential hypertension, malignant Dizziness and giddiness CARDIAC DEVICE CHECK- REMOTE- MURJ Routine 02/21/2025 12:44 PM EST CARDIAC DEVICE CHECK- REMOTE- MURJ Routine 02/18/2025 2:10 AM EST ECG 12-LEAD Routine 02/07/2025 12:07 PM EDT SVT (supraventricular tachycardia) (CMS/HCC V24) CARDIAC DEVICE CHECK- REMOTE- MURJ Routine 01/26/2025 10:54 AM EDT ABLATION SVT Routine 01/20/2025 1:58 PM EDT Tachycardia EP STUDY COMPLETE Routine 01/20/2025 1:5 8 PM EDT Tachycardia HCG, SERUM, QUALITATIVE Routine 01/20/2025 12:11 PM EDT CARDIAC DEVICE CHECK- REMOTE- MURJ Routine 01/17/2025 8:21 PM EDT CARDIAC DEVICE CHECK- REMOTE- MURJ Routine 01/17/2025 2:15 PM EDT BASIC METABOLIC PANEL Routine 01/09/2025 8:55 AM EDT Tachycardia PROTHROMBIN TIME WITH INR Routine 01/09/2025 8:55 AM EDT Tachycardia COMPLETE BLOOD COUNT Routine 01/09/2025 8:55 AM EDT Tachycardia CARDIAC DEVICE CHECK- REMOTE- MURJ Routine 12/07/2024 5:52 PM EDT HEPATITIS C SCREENING Routine 07/30/2022 HIV SCREENING Routine 07/30/2022 GIA SCREENING DIGITAL Routine 07/08/2022 1:28 PM EDT Encounter for screening mammogram for malignant neoplasm of breast PAP SMEAR Routine 02/18/2017 from Last 3 Months or Most Recently Relevant to Health Maintenance Results * Microalbumin creatinine urine ratio (03/01/2025 8:16 AM EST) Creatinine, Urine 115.0 mg/dL 03/01/2025 10:32 AM EST [facility] Microalb, Ur 4.0 0.0 - 29.0 mg/L 03/01/2025 10:32 AM EST [facility] Microalb/Creat Ratio 3 <30 mg/g creat 03/01/2025 10:32 AM EST [facility] Urine Urine specimen obtained by clean catch procedure / Unknown Non-blood Collection / Unknown 03/01/2025 8:16 AM EST 03/01/2025 8:48 AM EST us Lisa Webb MD LAB URINE ORDERABLES Final Re sult [facility] [address] [place] [address], [place] [phone] * Lipid panel with reflex to direct LDL (03/01/2025 8:06 AM EST) Cholesterol 177 0 - 200 mg/dL 03/01/2025 9:41 AM EST [facility] Triglycerides 145 0 - 150 mg/dL 03/01/2025 9:41 AM EST [facility] HDL 48 >=40 mg/dL 03/01/2025 9:41 AM EST [facility] LDL Calculated 100 0 - 100 mg/dL 03/01/2025 9:41 AM EST [facility] Comment:Estimated LDL Calcul ated using equation: Total cholesterol - HDL cholesterol - (Triglycerides/5) VLDL Cholesterol Will 29 mg/dL 03/01/2025 9:41 AM [facility] Non HDL Chol. (LDL+VLDL) 129 <145 mg/dL 03/01/2025 9:41 AM [facility] Chol/HDL Ratio 3.7 0.0 - 4.4 03/01/2025 9:41 AM [facility] Blood Venous blood specimen / Unknown Venipuncture / Unknown 03/01/2025 8:06 AM EST 03/01/2025 8:49 AM EST us Lisa Webb MD LAB BLOOD ORDERABLES Final Re sult [facility] [address] [place] [address], * (ABNORMAL) Hemoglobin A1c (03/01/2025 8:06 AM EST) Hemoglobin A1C 6.9(H) <6.5 % LAB CHEMISTRY METHOD 03/01/2025 10:43 AM EST [facility] Mean Bld Glu Estim. 151 mg/dL LAB CHEMISTRY METHOD 03/01/2025 10:43 AM EST [facility] Blood Venous blood specimen / Unknown Venipuncture / Unknown 03/01/2025 8:06 AM EST 03/01/2025 8:50 AM EST Lisa Webb MD LAB BLOOD ORDERABLES Final Re sult [facility] [address] [place] [address], [place] [phone] * (ABNORMAL) Comprehensive metabolic panel (03/01/2025 8:06 AM EST) Sodium 142 133 - 145 mmol/L 03/01/2025 11:46 AM [facility] Potassium 4.4 3.5 - 5.5 mmol/L 03/01/2025 11:46 AM [facility] Chloride 104 96 - 110 mmol/L 03/01/2025 11:46 AM [facility] CO2 29 21 - 32 mmol/L 03/01/2025 11:46 AM [facility] Anion Gap 9 3 - 11 03/01/2025 11:46 AM [facility] Glucose 120(H) 70 - 100 mg/dL 03/01/2025 11:46 AM [facility] BUN 11 5 - 25 mg/dL 03/01/2025 11:46 AM [facility] Creatinine 0.63 0.50 - 1.10 mg/dL 03/01/2025 11:46 AM [facility] eGFR 108 >=60 mL/min/1. 73m2 03/01/2025 11:46 AM [facility] Comment:Calculation based on the Chronic Kidney Disease Epidemiology Collaboration (CKD-EPI) equation refit without adjustment for race. BUN/Creatinine Ratio 17.5 03/01/2025 11:46 AM [facility] Calcium 8.3(L) 8.5 - 10.5 mg/dL 03/01/2025 11:46 AM [facility] AST (SGOT) 27 10 - 42 unit/L 03/01/2025 11:46 AM [facility] ALT (SGPT) 21 10 - 60 unit/L 03/01/2025 11:46 AM [facility] Alkaline Phosphatase 111 42 - 121 unit/L 03/01/2025 11:46 AM EST [facility] Total Protein 6.8 6.0 - 8.0 g/dL 03/01/2025 11:46 AM EST [facility] Albumin 4.3 3.2 - 5.0 g/dL 03/01/2025 11:46 AM EST [facility] Total Bilirubin 0.3 0.0 - 1.4 mg/dL 03/01/2025 11:46 AM EST [facility] Blood Venous blood specimen / Unknown Venipuncture / Unknown 03/01/2025 8:06 AM EST 03/01/2025 8:49 AM EST us Lisa Webb MD LAB BLOOD ORDERABLES Final Re sult [facility] [address] [place] [address], * Cardiac device check - Remote- MURJ (02/21/2025 12:44 PM EST) Only the most recent of6 resultswithin the time period is included. Date Time Interrogation Session [id number] CV DEVICE CHECK Type Interrogation Session Remote Device Initiated CV DEVICE CHECK Implantable Pulse Generator Studio Coordinator BSX CV DEVICE CHECK Implantable Pulse Generator Type ILR CV DEVICE CHECK Implantable Pulse Generator Model M312 CV DEVICE CHECK Implantable Pulse Generator Serial Number [id number] CV DEVICE CHECK Implantable Pulse Generator Implant Date 20240729 CV DEVICE CHECK Battery Status Beginning of Service CV DEVICE CHECK Atrial Tachy Statistic AT/AF [place] Percent 0.00 CV DEVICE CHECK Date of Service 2025-03-20 CV DEVICE CHECK Anatomical Region Laterality Modality Device Interroga tion 02/18/2025 12:5 4 AM EST Impressions 02/21/2025 12:42 PM EST Normal Remote: With Events * Events or Alerts: 1 * Tachycardia 5 hours 36 minutes average 124 * This is a normal remote diagnostic device check * Battery data was reviewed * Battery status: THOMAS, * Presenting rhythm reviewed * Heart Rate Histograms reviewed Narrative Procedure Note Serenity Dolan PA - 02/21/2025 IMPRESSION: Normal Remote: With Events * Events or Alerts: 1 * Tachycardia 5 hours 36 minutes average 124 * This is a normal remote diagnostic device check * Battery data was reviewed * Battery status: THOMAS, * Presenting rhythm reviewed * Heart Rate Histograms reviewed Serenity ALEMAN CV IMPLANTABLE CARDIAC DEVICE [place] OCEDURES Final Result * ECG 12 lead (02/07/2025 12:07 PM EDT) Ventricular Rate ECG 83 BPM GEMUSE Atrial Rate 83 BPM GEMUSE P-R Interval 146 ms GEMUSE QRS Duration 130 ms GEMUSE Q-T Interval 398 ms GEMUSE QTc 467 ms GEMUSE P Wave [place] 49 degrees GEMUSE R [place] 68 degrees GEMUSE T [place] 121 degrees GEMUSE ECG Interpretation Normal sinus rhythm Non-specific intra-ventricul ar conduction block Cannot rule out Anteroseptal infarct (cited on or before 07-FEB-2025) Abnormal ECG When compared with ECG of 13-OCT-2024 08:59, Questionable change in initial forces of Anterior leads Nonspecific T wave abnormality now evident in Inferior leads GEMUSE 02/07/2025 10:3 9 AM EDT Chrissy Cleveland NP ECG ORDERABLES Final Result GEMUSE * EP STUDY COMPLETE, ABLATION SVT (01/20/2025 1:58 PM EDT) Anatomical Region Laterality Modality X-Ray Angiograph y Narrative 01/24/2025 8:22 AM EDT Comprehensive electrophysiologic study with no inducible SVT. Patient's symptoms are likely from atrial ectopy or periods of inappropriate sinus tachycardia. Clinical Background This 49-year-old female has a history of a subaortic membrane surgically repaired in 2014 and now she has documented narrow complex tachycardia with excessive palpitations resistant to medical therapy. Procedure Details After dinner and informed consent the patient was brought to the EP laboratory in the fasting state and was moderately sedated by nursing staff using small doses of Versed and fentanyl. Please see nursing flowsheet for details of doses and hemodynamics. After the usual sterile prep and local anesthesia with 1% lidocaine and using ultrasound guidance I accessed the left and right femoral veins placing 2 sheaths into both veins over guidewires. I advanced a quadripolar catheter to the high right atrium, His bundle and right ventricular apical positions. I placed a decapolar catheter with the tip in the coronary sinus but the catheter would not cross into the main body of the coronary sinus due to a likely valve that limited despite multiple attempts and 3D mapping to help us access the coronary sinus. I did create a geometry of the right atrium using the CARO/NavX mapping system. This was used to minimize fluoroscopy. Baseline intervals noted a left bundle branch block but the AH and HV intervals were well within normal limits with an HV of 39 ms. Atrial pacing showed Wenckebach block at 300 ms. Ventricular pacing showed concentric atrial activation. Atrial premature similarly showed no evidence of dual AV vickie physiology and we could not induce anything more than double premature atrial complexes from the high right atrium. After an exhaustive attempt to induce any SVT she proved noninducible and the procedure was terminated with removal of the catheters. Hemostasis was achieved through placement of a Vascade closure device and manual compression over the right and left femoral veins. The patient was returned to recovery in stable condition with no immediate complications. us Roosevelt Valentin MD CV ELECTROPHYSIOLOGY PROCEDURE S Final Result * HCG, serum, qualitative (01/20/2025 12:11 PM EDT) hCG Qual Negative Negative 01/20/2025 12:53 PM EDT [facility] Blood Venous blood specimen / Unknown Venipuncture / Unknown 01/20/2025 12:11 PM EDT 01/20/2025 12:18 PM EDT us Roosevelt Valentin MD LAB BLOOD ORDERABLES Final Res ult [facility] [address] [place] [address], [place] [phone] * Prothrombin time with INR (01/09/2025 8:55 AM EDT) Pathologist [facility] Protime 12.3 10.6 - 13.9 sec LAB COAGULATION METHOD 01/09/2025 11:28 AM EDT [facility] INR 1.0 LAB COAGULATION METHOD 01/09/2025 11:28 AM EDT [facility] Blood Venous blood specimen / Unknown Venipuncture / Unknown 01/09/2025 8:55 AM EDT 01/09/2025 11:13 AM EDT us Roosevelt Valentin MD LAB BLOOD ORDERABLES Final Res ult [facility] [address] [place] [address], [place] [phone] * Complete blood count (01/09/2025 8:55 AM EDT) [facility] WBC 9.9 4.8 - 10.8 K/mcL LAB HEMETOLOGY METHOD 01/09/2025 12:25 PM EDT [facility] RBC 4.60 3.80 - 4.80 M/mcL LAB HEMETOLOGY METHOD 01/09/2025 12:25 PM EDT [facility] Hemoglobin 13.7 11.5 - 16.0 g/dL LAB HEMETOLOGY METHOD 01/09/2025 12:25 PM EDT [facility] Hematocrit 40.8 35.0 - 47.0 % LAB HEMETOLOGY METHOD 01/09/2025 12:25 PM EDT [facility] MCV 88.5 79.0 - 98.0 FL LAB HEMETOLOGY METHOD 01/09/2025 12:25 PM EDT [facility] MCH 29.7 27.0 - 32.0 pcg LAB HEMETOLOGY METHOD 01/09/2025 12:25 PM EDT [facility] MCHC 33.6 32.0 - 37.0 g/dL LAB HEMETOLOGY METHOD 01/09/2025 12:25 PM EDT [facility] RDW 12.9 11.0 - 15.0 % LAB HEMETOLOGY METHOD 01/09/2025 12:25 PM EDT [facility] Platelets 332 130 - 400 K/mcL LAB HEMETOLOGY METHOD 01/09/2025 12:25 PM EDT [facility] MPV 10.5 7.0 - 11.0 FL LAB HEMETOLOGY METHOD 01/09/2025 12:25 PM EDT [facility] NRBC 0.0 <1.0 % LAB HEMETOLOGY METHOD 01/09/2025 12:25 PM EDT [facility] NRBC Absolute 0.00 <0.10 K/mcL LAB HEMETOLOGY METHOD 01/09/2025 12:25 PM EDT [facility] Blood Venous blood specimen / Unknown Venipuncture / Unknown 01/09/2025 8:55 AM EDT 01/09/2025 11:15 AM EDT us Roosevelt Valentin MD LAB BLOOD ORDERABLES Final Res ult [facility] [address] [place] [address], * (ABNORMAL) Basic metabolic panel (01/09/2025 8:55 AM EDT) Sodium 136 133 - 145 mmol/L LAB CHEMISTRY METHOD 01/09/2025 12:39 PM EDT [facility] Potassium 4.1 3.5 - 5.5 mmol/L LAB CHEMISTRY METHOD 01/09/2025 12:39 PM EDT [facility] Chloride 103 96 - 110 mmol/L LAB CHEMISTRY METHOD 01/09/2025 12:[address] [facility] CO2 27 21 - 32 mmol/L LAB CHEMISTRY METHOD 01/09/2025 12:[address] [facility] Anion Gap 6 3 - 11 LAB CHEMISTRY METHOD 01/09/2025 12:[address] [facility] Glucose 122(H) 70 - 100 mg/dL LAB CHEMISTRY METHOD 01/09/2025 12:[address] [facility] BUN 15 5 - 25 mg/dL LAB CHEMISTRY METHOD 01/09/2025 12:[address] [facility] Creatinine 0.69 0.50 - 1.10 mg/dL LAB CHEMISTRY METHOD 01/09/2025 12:[address] [facility] eGFR 105 >=60 mL/min/1. 73m2 LAB CHEMISTRY METHOD 01/09/2025 12:[address] [facility] Comment:Calculation based on the Chronic Kidney Disease Epidemiology Collaboration (CKD-EPI) equation refit without adjustment for race. BUN/Creatinine Ratio 21.7 LAB CHEMISTRY METHOD 01/09/2025 12:[address] [facility] Calcium 9.3 8.5 - 10.5 mg/dL LAB CHEMISTRY METHOD 01/09/2025 12:[address] [facility] Blood Venous blood specimen / Unknown Venipuncture / Unknown 01/09/2025 8:55 AM EDT 01/09/2025 11:14 AM EDT us Roosevelt Valentin MD LAB BLOOD ORDERABLES Final Res ult [facility] [address] [place] [address], * HIV Screening (07/30/2022) [facility] HIV Screening Abstracted Historical Provider HEALTH MAINTENANCE Final Result * Hepatitis C Screening (07/30/2022) [facility] Hepatitis C Screening Abstracted us Historical Provider HEALTH MAINTENANCE Final Result * [facility] SCREENING DIGITAL (07/08/2022 1:28 PM EDT) Anatomical Region Laterality Modality Mammography 07/07/2022 1:34 PM EDT Narrative 07/08/2022 1:28 PM EDT [facility] Diagnostic Imaging Department [address] [place] [id number] Patient: JNSYLVIA /Age/Sex: 1975 - 46 - F Unit#: [id number] Location/Status: [facility] CLI Mnemonic/Ordering Site: [facility] Ordering Physician: BALJIT GUSTAFSON [facility] Screening Digital - 07/07/22 - 3583 INDICATION: SCREENING COMPARISON: [facility] mammograms dating back to 05/21/2011 TECHNIQUE: CC and MLO views of the breasts were obtained, using full field digital mammography with 3D tomosynthesis views in the MLO projection. 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 FINDINGS: The breasts contain scattered fibroglandular tissues. No suspicious masses, suspicious microcalcifications, or areas of architectural distortion are identified. There are no secondary signs of breast malignancy. IMPRESSION: No specific mammographic evidence of breast malignancy. Lack of an imaging correlate should not deter or delay biopsy of a clinically significant palpable finding. BI-RADS - Category 1: Negative 3341F, 7025F Annual screening mammography is recommended. Patient entered into a reminder system with a target date for the next mammogram. ([id number] / [id number]) , [id number] Dictating Physician: RAMOS MARTEL MD Electronically Signed by: RAMOS MARTEL MD Dic Date/Time: 07/08/22 1323 Sign date/Time: 07/08/22 1328 Procedure Note Ramos Martel MD - 05/15/2023 [facility] Diagnostic Imaging Department [address] [place] [address] Patient: SYLVIA MILLERO.B./Age/Sex: 1975 - 46 - F Unit#: [id number] [facility] Mnemonic/Ordering Site: [facility] Ordering Physician: BALJIT GUSTAFSON [facility] Screening Digital - 07/07/22 - 1353 INDICATION: SCREENING COMPARISON: [facility] mammograms dating back to 05/21/2011 TECHNIQUE: CC and MLO views of the breasts were obtained, using full field digital mammography with 3D tomosynthesis views in the MLO projection. 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 FINDINGS: The breasts contain [...] a target date for the next mammogram. [id number] / [id number]) , [id number] Dictating Physician: RAMOS MARTEL MD Electronically Signed [...] Billing Address Personal/Family Self [address] [place] [address] MEDICAID - [place] Care Teams Trade Mark Examiner Relationship Specialty Start Date End Date Lisa Webb MD [address] [place] [address] [place] [address] PCP - General Internal Medicine 07/29/24
--- OUTSIDE RECORDS SUMMARY | 2025-03-01 16:18 | XMS_ITS | Encounter Summary ---
Author Organization [facility] Address [address] [place] [address] Care Team Providers Care Inspector Publications Name Role Phone Lisa Webb MD Primary Care Provider [phone] Encounter Details Date Type Department Care Team (Late Contact Info) Description 01/09/2025 Results Follow-Up [facility] - [facility] [address] [facility] [address] [place] [address] Serenity Dolan PA [address] [facility] [address] [place] [address] Social History Tobacco Use Types Packs/Day Years [...] Description 03/31/2025 11:10 AM EST Office Visit [facility] [address] [facility] [address] [place] [phone] Chrissy Cleveland NP [address] [place] [address] documented as of this encounter Visit Diagnoses Not on filedocumented in this encounter Care Teams Inspector Publications Relationship Specialty Start Date End Date Lisa Webb MD [address] [place] [address] [place] [address] PCP - General Internal Medicine 07/29/24 documented as of this encounter
== END 2025-03-01 09:19 | disposition home or self-care (01) ==
LOC: HO.HGI 08:34
PROVIDERS: PCP Internal Medicine; Visit Provider Internal Medicine
DX: K21.9 Gastro-esophageal reflux disease without esophagitis (principal); R14.0 Abdominal distension (gaseous); K59.00 Constipation, unspecified; E66.9 Obesity, unspecified
CPT/HCPCS: 99214

== ENCOUNTER → 2025-03-01 08:33 | Outpatient (BNVA) | payer MEDICAID, SELFPAY | PROVIDERS: PCP Internal Medicine; Visit Provider Internal Medicine | DX: K21.9 Gastro-esophageal reflux disease without esophagitis (principal); K59.00 Constipation, unspecified; R14.0 Abdominal distension (gaseous); E66.9 Obesity, unspecified | CPT/HCPCS: 99212 ==